=== PATIENT | male | born 1950 | race Caucasian/White ===

== ENCOUNTER → 2018-02-10 | Outpatient (CLI) | payer MEDICARE | END | disposition home or self-care (01) | LOC: LABPAT 08:08 | PROVIDERS: ATTEND Orthopaedic Surgery | DX: Z53.9 Procedure and treatment not carried out, unspecified reason (principal) ==

== ENCOUNTER 2018-02-18 06:14 | Inpatient (IN) | payer MEDICARE ==
[2018-02-13 12:19] VITALS: BMI 41.0
[~2018-02-18 06:14] MED LIST: DEXAMETHASONE SOD PHOSPHATE 10 MG/ML 1 ML VIAL IV ONE; LACTATED RINGERS 1,000 ML IV SCH; LIDOCAINE 1% 20 ML VIAL (10MG/ML) FOR IV START INTRADERMA PRN; ONDANSETRON 4 MG/2 ML VIAL IVP ONE; SCOPOLAMINE 1.5MG/72HR PATCH TRANSDERM ONE
[2018-02-18] MEDS ORDERED: LIDOCAINE 1% 20 ML VIAL (10MG/ML) FOR IV START INTRADERMA ONE (07:23)
[2018-02-18] MEDS ORDERED: LACTATED RINGERS 1,000 ML IV ONE (07:24)
[2018-02-18] MEDS ORDERED: MIDAZOLAM 2 MG/2 ML VIAL ONE (08:04)
[2018-02-18] MEDS ORDERED: PROPOFOL 10 MG/ML 20 ML VIAL IV ONE (08:04)
[2018-02-18] MEDS ORDERED: GLYCOPYRROLATE 0.2 MG/ML 2 ML VIAL ONE (08:04)
[2018-02-18] MEDS ORDERED: MORPHINE SULFATE 10 MG/ML SYRINGE ONE (08:04)
[2018-02-18] MEDS ORDERED: LIDOCAINE 1% INJ 10MG/ML (20 ML MDV) ONE (08:04)
[2018-02-18] MEDS ORDERED: hydrOXYzine PAMOATE 25 MG CAP PO PRN (08:58)
[2018-02-18] MEDS ORDERED: MORPHINE SULFATE/PF 10MG/10ML VL IVP PRN ×2 (08:58)
[2018-02-18] MEDS ORDERED: HYDROcodone/APAP 5-325MG 1 EACH TAB PO PRN (08:58)
[2018-02-18] MEDS ORDERED: TEMAZEPAM 15 MG CAP PO PRN (08:58)
[2018-02-18] MEDS ORDERED: ONDANSETRON 4 MG/2 ML VIAL IVP PRN (08:58)
[2018-02-18] MEDS ORDERED: SENNOSIDES-DOCUSATE SODIUM 1 EACH TAB PO PRN (08:58)
[2018-02-18] MEDS: fentaNYL (PF) 50 MCG/ML 2 ML AMP IVP ONE ×4 (08:59→09:20)
[2018-02-18] MEDS: MIDAZOLAM 2 MG/2 ML VIAL IV PRN ×2 (09:22→09:28)
--- NOTE | 2018-02-18 09:27 | HP ---
HISTORY AND PHYSICAL Darrel Devlin presented at surgery perioperative in a.m. in preparation for right rotator cuff repair. Today he presents with a bright red swollen left foot following stepping on a tooth pick last night. He has evidence of early cellulitis into the foot and ankle associated with a cyst, associated with last nights puncture wound. The area is visualized and it is a small puncture area. I canceled the procedure for the shoulder with this ongoing early infection. Plan to take him directly to the operating room and do an incision and drainage of his left foot with culture and sensitivity. He is aware of possibility multiple pieces wood remaining and will look for at the time of surgery. He is aware of risks, complications, post care.. He is admitted for inpatient IV antibiotic therapy and incision and drainage in the operating room as noted. JOSHL / NATN: [id number] / SANTIAGO
[2018-02-18] MEDS ORDERED: SODIUM CHLORIDE 0.9% 1,000 ML IV ONE (09:31)
[2018-02-18] MEDS: MORPHINE SULFATE 2 MG/ML SYRINGE IV PRN ×5 (09:44→12:55)
--- NOTE | 2018-02-18 11:31 | FL ---
Fluoroscopy HISTORY: Foreign body 10 seconds fluoroscopy time supplied to the referring clinician. 1 intraoperative C-arm images docum ent the procedure. See dictated report from orthopedic surgery.
--- NOTE | 2018-02-18 11:37 | XR ---
Limited left foot HISTORY: Foreign body Intraoperative C-arm image documents the procedure
[2018-02-18] MEDS: MORPHINE SULFATE/PF 10MG/10ML VL IVP PRN ×2 (15:16→21:22)
[2018-02-18] MEDS: LACTATED RINGERS 1,000 ML IV SCH ×2 (16:47→20:39)
[2018-02-18] MEDS: LISINOPRIL 20 MG TAB PO SCH (21:17)
[2018-02-18] MEDS: ATORVASTATIN 20 MG TAB PO SCH (21:17)
[2018-02-19] MEDS: HYDROcodone/APAP 5-325MG 1 EACH TAB PO PRN ×2 (05:16→13:47)
[2018-02-19] MEDS: LACTATED RINGERS 1,000 ML IV SCH ×2 (06:10→16:03)
--- NOTE | 2018-02-19 06:14 | CONS ---
CONSULTATION DATE OF CONSULTATION: 02/18/2018 REASON FOR CONSULTATION: Medical management requested by Dr. Lea. CONSULTATION: This is a very pleasant 68-year-old patient of Dr. Allen. The patient was scheduled for a right rotator cuff surgery this morning, but last night the patient stepped on a toothpick and by this morning patient's foot was swollen, tender, very painful. Actually patient was taken to the OR by Dr. Lea. I did not have any operative report. The patient's foot presented swelling. The patient's right shoulder surgery was postponed. The patient denies any cardiac history. Otherwise, chronic stable medical conditions include hypertension, hyperlipidemia, and arthritis in other joints. REVIEW OF SYSTEMS: CONSTITUTIONAL: None. HEENT: None. RESPIRATORY: None. CARDIOVASCULAR: None. GASTROINTESTINAL: None. GENITOURINARY: None. MUSCULOSKELETAL: As above. DERMATOLOGICAL: None. HEMATOLOGIC: None. LYMPHATIC: None. PSYCHIATRY: None. NEUROLOGICAL: None. MUSCULOSKELETAL: As above. PAST MEDICAL HISTORY: Right rotator cuff injury, hypertension, hyperlipidemia, obesity. PAST SURGICAL HISTORY: Left knee scope, left knee Reaves cyst repair. SOCIAL HISTORY: Does not smoke or drink alcohol. . The patient used to do delivery. FAMILY HISTORY: Family history of cancer, type unknown. HOME MEDICATIONS: 1. Vitamin D3, 2000 units p.o. q.h.s. 2. Naproxen 440 mg q.h.s. 3. Prinivil 20 mg q.h.s. 4. Lipitor 20 mg q.h.s. ALLERGIES: None. PHYSICAL EXAMINATION: On examination, temperature 98.4 pulse 87, respiration 16, blood pressure 144/71, pulse ox 95% on room air. GENERAL APPEARANCE: Well built, BMI 41.1. Lying in bed, awake. EYES: Pupils equal. Conjunctivae normal. HENT: External appearance of the nose and ears normal. Oral cavity normal. NECK; JVD not raised. Mass not palpable. RESPIRATORY: Effort . Lungs are clear. CARDIOVASCULAR: First and second sounds normal. No edema. ABDOMEN: Soft, nontender. Liver and spleen not palpable. LYMPHATIC: No lymph nodes palpable in the neck or axillae. PSYCHIATRY: Alert and oriented x3. Mood and affect normal. NEUROLOGICAL: Pupils equal. Cranial nerves grossly intact. Power and sensation grossly intact. MUSCULOSKELETAL: Limited range of motion right shoulder. Left foot in a dressing. INVESTIGATIONS: C-reactive protein 15.2. ASSESSMENT: 1. Left foot injury with a toothpick with possible abscess, status post I and D. 2. Right rotator cuff injury, awaiting surgery. 3. Essential hypertension. 4. Hyperlipidemia. 5. Morbid obesity, body mass index 41.1. PLAN: Home medications are resumed. Patient is started on IV cefazolin. Will add Lovenox for DVT prophylaxis. Pain control is in place. Care was discussed with the patient and at the bedside. Questions were answered. Thank you Dr. Lea. MMODL / NATN: [id number] /
[2018-02-19] MEDS: ENOXAPARIN 40 MG/0.4 ML SYRINGE SQ SCH (08:09)
--- NOTE | 2018-02-19 08:34 | P.PN ---
Subjective Progress Note Date: 02/19/18 Principal diagnosis: Foreign body left foot. Status post I&D left foot. This is a 68-year-old male who is status post I&D of the left foot. The patient had stepped on a toothpick the evening before he was scheduled for shoulder surgery. When he arrived at the hospital his shoulder surgery was canceled and he was admitted on for an incision and drainage with evaluation for foreign body of the left foot. The patient continues to have pain to the left foot. No fever or chills. Neurovascular status to the lower extremity is intact. Objective - Vital Signs Vital signs: Vital Signs Temp 97.9 F 02/19/18 06:10 Pulse 69 02/19/18 06:10 Resp 18 02/19/18 06:10 BP 136/66 02/19/18 06:10 Pulse Ox 92 L 02/19/18 06:10 Intake & Output 02/18/18 02/19/18 02/19/18 18:59 06:59 18:59 Intake Total 1750 Output Total 6 Balance 1744 Intake: IV 1750 Output: Estimated Blood Loss 6 Other: Voiding Method Toilet Toilet Urinal Urinal # Voids 3 - Exam This is a pleasant 68-year-old male in no acute distress. He is alert and oriented 3. Exam of the left foot reveals that he continues to have erythema with some mild streaking up into the lower leg. There is mild to moderate sanguinous drainage on the dressing. The packing is pulled and repacked today. The patient has significant tenderness with even light touch to the area. He has full toe motion without difficulty or pain. Neurovascular status to the lower extremity is intact. - Labs Labs: Abnormal Lab Results - Last 24 Hours (Table) 02/18/18 Range/Units 15:18 C-Reactive Protein 15.2 H (<10.0) mg/L Microbiology - Last 24 Hours (Table) 02/18/18 08:46 Gram Stain - Preliminary Foot - Left Wound Culture - Preliminary 02/18/18 08:46 Anaerobic Culture - Preliminary Foot - Left Assessment and Plan (1) Status post incision and drainage Current Visit: Yes Status: Acute Code(s): Z98.890 - OTHER SPECIFIED POSTPROCEDURAL STATES SNOMED Code(s): 850480533 (2) Foreign body in left foot Current Visit: Yes Status: Acute Code(s): S90.852A - SUPERFICIAL FOREIGN BODY, LEFT FOOT, INITIAL ENCOUNTER SNOMED Code(s): 934071837 Plan: The clinical findings are discussed the patient. The wound is repacked today gently. Clean dressing applied. He is to continue with IV antibiotics as directed. We will continue to follow with daily dressing changes and packing.
[2018-02-19 09:07] LABS: Basophils # (A) 0.1 k/uL (0-0.2); Basophils % (A) 1 %; Eosinophils # (A) 0.1 k/uL (0-0.7); Eosinophils % (A) 2 %; HCT 37.7 % (39.0-53.0); HGB 13.5 gm/dL (13.0-17.5); Lymphocytes # (A) 1.8 k/uL (1.0-4.8); Lymphocytes % (A) 22 %; MCH 31.3 pg (25.0-35.0); MCHC 35.7 g/dL (31.0-37.0); MCV 87.7 fL (80.0-100.0); Mean Platelet Volume 7.6; Monocytes # (A) 0.6 k/uL (0-1.0); Monocytes % (A) 7 %; Neutrophils # (A) 5.3 k/uL (1.3-7.7); Neutrophils % (A) 67 %; Platelet Count 193 k/uL (150-450); RDW 12.8 % (11.5-15.5)
[2018-02-19] MEDS ORDERED: HYDROmorphone 2 MG TAB PO PRN ×3 (15:19→15:20)
--- NOTE | 2018-02-19 18:38 | PN ---
PROGRESS NOTE DATE OF SERVICE: 02/19/2018 PRESENTING COMPLAINT: Left foot infection. INTERVAL HISTORY: The patient is status post I&D of his left foot infection secondary to a toothpick. Pain is better. Tolerating a diet. No nausea or vomiting. REVIEW OF SYSTEMS: Done for constitutional, cardiovascular, GI, pulmonary; relevant findings as above. CURRENT MEDICATIONS: These include IV Ancef. PHYSICAL EXAMINATION: Temperature 97.9, pulse 69, respiration 18, blood pressure 136/66, pulse ox 92% on room air. GENERAL APPEARANCE: Lying in bed, comfortable. EYES: Pupils equal. Conjunctivae normal. HEENT: External appearance of nose and ears normal. Oral cavity normal. NECK: JVD not raised. Mass not palpable. RESPIRATORY: Effort normal. Lungs are clear. CARDIOVASCULAR: First and second sounds normal. No edema. ABDOMEN: Soft, nontender. Liver and spleen not palpable. MUSCULOSKELETAL: Dressing over the left foot. INVESTIGATIONS: Cultures are pending. White count 8.0. ASSESSMENT: 1. Left foot injury with toothpick, possible abscess, status post incision and drainage, with a normal white count, afebrile. 2. Right rotator cuff injury; awaiting surgery. 3. Essential hypertension. 4. Hyperlipidemia. 5. Morbid obesity; body mass index of 41.1. PLAN: Continue with IV cefazolin. I spoke to Dr. Lea. Clinically the patient looks good. Also spoke with the patient and his . Thank you, Dr. Lea. MMASIF / SAMMI: [id number] /
[2018-02-19] MEDS: LISINOPRIL 20 MG TAB PO SCH (21:48)
[2018-02-19] MEDS: ATORVASTATIN 20 MG TAB PO SCH (21:48)
--- NOTE | 2018-02-20 00:04 | P.CONS ---
History of Present Illness - Reason for Consult Consult date: 02/19/18 - Chief Complaint Abscess left foot - History of Present Illness Todd 68-year-old male is a history of a significant right shoulder injury with rotator cuff tear. Is having increasing symptoms and consequently was to have a rotator cuff repair. The patient relates that he had taken a shower getting ready for surgery. Change his sheets to his bed and stepped on a toothpick apparently he utilizes toothpicks quite a bit. There was an inadvertent injury from a toothpick that have been left on the floor. The patient's relates that she always wears slippers but the patient does not. Exactly that he was immediately aware of that he had stepped onto the toothpick. The time he presented he had significant abscess on the plantar surface of his left foot. Patient underwent surgical incision and drainage by orthopedics. Shoulder surgery is now delayed. Because of the abscess the infectious diseases consultation has been requested. This pleasant gentleman relates that he is not having this difficulty in the past. He is denying further fevers or chills and the severe pain to his foot is improved. Review of Systems HEENT:Denies headache or acute visual change. Denies sinus or mouth discomforts. Denies neck stiffness or pain. Denies significant oral cavity pain. Denies difficulty on swallowing. Lungs: Denies significant shortness of breath, cough, sputum production, or hemoptysis. Cardiovascular: Denies significant shortness of breath, chest pain, chest wall pain, orthopnea, dyspnea on exertion, syncope Gastrointestinal:Denies nausea, vomiting, diarrhea, constipation, hematemesis, melena, hematochezia. No no significant change of bowel habit noticed. Musculoskeletal: Chronic pain to the left shoulder. No new joint swelling. Denies new back pain. Skin: Abscess of the left foot is noted Neuro: Denies headache or visual change. Denies any new onset weakness or difficulty with ambulation. Denies falls or seizures. Psychiatric:Denies anxiety or depression. Endocrine: Denies significant fatigue, denies significant weight loss or weight gain. Past Medical History Past Medical History: Hyperlipidemia, Hypertension, Musculoskeletal Disorder Additional Past Medical History / Comment(s): RT ROTATOR CUFF TEAR. History of Any Multi-Drug Resistant Organisms: None Reported Additional Past Surgical History / Comment(s): LT KNEE SCOPE; LT KNEE CARDOSO CYST EXC. Past Anesthesia/Blood Transfusion Reactions: No Reported Reaction Past Psychological History: No Psychological Hx Reported Additional Psychological History / Comment(s): and lives with his and family home. 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 No international travel since. No animal exposures. Denies any alcohol use or recreational drug use. No tobacco use Smoking Status: Never smoker Past Alcohol Use History: None Reported Past Drug Use History: None Reported - Past Family History Father Family Medical History: Cancer Mother Family Medical History: Cancer Medications and Allergies Home Medications and Allergies Comment(s): Current Medications Hydrocodone Bitart/Acetaminophen ([place] 5-325) 1 each PO Q4HR PRN PRN Reason: Pain Scale 1 to 5 Last Admin: 02/19/18 08:55 Dose: 1 each Hydrocodone Bitart/Acetaminophen ([place] 5-325) 2 each PO Q6HR PRN PRN Reason: Pain Scale 6 to 10 Last Admin: 02/19/18 13:47 Dose: 2 each Atorvastatin Calcium (Lipitor) 20 mg PO HS [facility] Last Admin: 02/19/18 21:48 Dose: 20 mg Enoxaparin Sodium (Lovenox) 40 mg SQ DAILY [facility] Last Admin: 02/19/18 08:09 Dose: 40 mg Hydromorphone HCl (Dilaudid) 0.5 mg PO Q3HR PRN PRN Reason: Pain Scale 1 to 3 Hydromorphone HCl (Dilaudid) 1 mg PO Q3HR PRN PRN Reason: Pain Scale 4 to 6 Hydromorphone HCl (Dilaudid) 2 mg PO Q3HR PRN PRN Reason: Pain Scale 7 to 10 Hydroxyzine Pamoate (Vistaril) 25 mg PO Q6HR PRN PRN Reason: Nausea/Anxiety Lactated Ringer's (Lactated Ringers) 1,000 mls @ 100 mls/hr IV .Q10H [facility] Last Admin: 02/19/18 16:03 Dose: Not Given Ampicillin Sodium/Sulbactam (Sodium 3 gm/ Sodium Chloride) 100 mls @ 100 mls/ hr IVPB Q6HR [facility] Lidocaine HCl (.Xylocaine 1% Inj (10mg/Ml) For Iv Start) 0.1 ml INTRADERMA PER PROTOCOL PRN PRN Reason: IV Start Lisinopril (Zestril) 20 mg PO HS [facility] Last Admin: 02/19/18 21:48 Dose: 20 mg Ondansetron HCl (Zofran) 4 mg IVP DAILY PRN PRN Reason: Nausea And Vomiting Senna/Docusate Sodium (Senokot-S) 2 each PO HS PRN PRN Reason: Constipation Temazepam (Restoril) 15 mg PO HS PRN PRN Reason: Insomnia Last Admin: 02/19/18 21:48 Dose: 15 mg Home Medications Medication Instructions Recorded Confirmed Type Atorvastatin [Lipitor] 20 mg PO HS 02/13/18 02/19/18 History Cholecalciferol (Vitamin D3) 2,000 unit PO HS 02/13/18 02/19/18 History [Vitamin D3] Lisinopril [Prinivil] 20 mg PO HS 02/13/18 02/19/18 History Naproxen Sodium [Aleve] 440 mg PO HS 02/13/18 02/19/18 History Allergies Allergy/AdvReac Type Severity Reaction Status Date / Time No Known Allergies Allergy Verified 02/19/18 19:37 Physical Exam Vitals: Vital Signs Temp Pulse Pulse Resp BP Pulse Ox 02/19/18 23:00 97.2 F L 60 18 125/67 93 L 02/19/18 15:00 97.8 F 84 16 136/74 97 02/19/18 08:00 18 02/19/18 06:10 97.9 F 69 18 136/66 92 L Intake and Output 02/19/18 02/19/18 02/20/18 14:59 22:59 06:59 Other: # Voids 2 HEENT: Anicteric conjunctiva are pink and moist nasal mucosa grossly intact without significant lesions, there is no thrush. Neck: The neck is supple without significant lymphadenopathy or thyromegaly. Lungs: Good bilateral air entry without significant crackles or wheezing. There is no significant bronchial sounds. There is no egophony or dullness. Heart: Regular rate and rhythm with an audible S1-S2, no S3 no S4. There is no significant murmur click or rub, PMI was nondisplaced. Abdomen: Positive bowel sounds soft and nontender without palpable masses or organomegaly. There was no guarding or rebound. Extremities: The upper extremities have excellent pulses they are symmetric, no significant petechiae or telangiectasia. No splinter hemorrhages were noted. The left lower extremity reveals evidence of significant swelling erythema and tenderness of the plantar surface where the incision and drainages occurred. Packing is removed and Aquacel dressing is replaced. Right foot without acute difficulties. It is not right shoulder has very poor range of motion with tenderness Neuro: Awake alert oriented to person place and time. There are no acute new gross focal sensory motor deficits. Results CBC & Chem 7: 02/19/18 08:46 Labs: Abnormal Lab Results - Last 24 Hours (Table) 02/19/18 Range/Units 08:46 Hct 37.7 L (39.0-53.0) % Laboratory Results WBC 8.0 k/uL (3.8-10.6) 02/19/18 08:46 RBC 4.30 m/uL (4.30-5.90) 02/19/18 08:46 Hgb 13.5 gm/dL (13.0-17.5) 02/19/18 08:46 Hct 37.7 % (39.0-53.0) L 02/19/18 08:46 MCV 87.7 fL (80.0-100.0) 02/19/18 08:46 MCH 31.3 pg (25.0-35.0) 02/19/18 08:46 MCHC 35.7 g/dL (31.0-37.0) 02/19/18 08:46 RDW 12.8 % (11.5-15.5) 02/19/18 08:46 Plt Count 193 k/uL (150-450) 02/19/18 08:46 Neutrophils % 67 % 02/19/18 08:46 Lymphocytes % 22 % 02/19/18 08:46 Monocytes % 7 % 02/19/18 08:46 Eosinophils % 2 % 02/19/18 08:46 Basophils % 1 % 02/19/18 08:46 Neutrophils # 5.3 k/uL (1.3-7.7) 02/19/18 08:46 Lymphocytes # 1.8 k/uL (1.0-4.8) 02/19/18 08:46 Monocytes # 0.6 k/uL (0-1.0) 02/19/18 08:46 Eosinophils # 0.1 k/uL (0-0.7) 02/19/18 08:46 Basophils # 0.1 k/uL (0-0.2) 02/19/18 08:46 ESR 13 mm/hr (0-15) 02/18/18 15:18 C-Reactive Protein 15.2 mg/L (<10.0) H 02/18/18 15:18 Microbiology 02/18/18 08:46 Foot - Left Gram Stain - Preliminary 02/18/18 08:46 Foot - Left Wound Culture - Preliminary 02/18/18 08:46 Foot - Left Anaerobic Culture - Preliminary Assessment and Plan (1) Foreign body in left foot Current Visit: Yes Status: Acute Code(s): S90.852A - SUPERFICIAL FOREIGN BODY, LEFT FOOT, INITIAL ENCOUNTER SNOMED Code(s): 816106174 (2) Foot abscess, left Narrative/Plan: Pleasant 68-year-old male who has a history of degenerative joint disease in significant injury to his right shoulder was to have right rotator cuff repair surgery. However the patient stepped on a toothpick in his without significant abscess to the plantar surface of the left foot. Status post incision and drainage. Cultures are pending. Antibiotic therapy is altered to ampicillin sulbactam since the toothpick was used intermittently been in the mouth. This changes the potential bacteria to oral fluoroscopy as well as staph and strep. Await cultures to help determine her overall course. There is of course concerning given the foreign body of the possibility of an underlying osteomyelitis. Bone scan is requested. This will help determine overall course of therapy at the time of his discharge. Local wound care as changed Aquacel silver and it was packed into the wound with some discomfort but did tolerate well He is up-to-date on his tetanus vaccine from last year. We'll except a multivitamin. Protein supplement also. Current Visit: Yes Status: Acute Code(s): L02.612 - CUTANEOUS ABSCESS OF LEFT FOOT SNOMED Code(s): 679915648 (3) Obesity Current Visit: Yes Status: Acute Code(s): E66.9 - OBESITY, UNSPECIFIED SNOMED Code(s): 086693726
[2018-02-20] MEDS: AMPICILLIN-SULBACTAM 3 GM in SODIUM CHLORIDE 0.9% 100 ML IVPB SCH ×4 (00:55→18:04)
[2018-02-20] MEDS: LACTATED RINGERS 1,000 ML IV SCH ×3 (02:09→22:16)
[2018-02-20] MEDS: HYDROcodone/APAP 5-325MG 1 EACH TAB PO PRN ×3 (02:31→17:07)
[2018-02-20] MEDS: ENOXAPARIN 40 MG/0.4 ML SYRINGE SQ SCH (07:51)
--- NOTE | 2018-02-20 08:36 | P.PN ---
Subjective Progress Note Date: 02/20/18 Principal diagnosis: Left foot infection s/p foreign body removal This is a 68 year-old male post left foot I&D. This is post-op day 2. The patient was evaluated at the bedside today. The patient denies nausea, vomiting , abdominal pain, shortness of breath, and chest pain this morning. He states his pain is controlled at this time. The patient has been seen by Dr. Shukla, IV antibiotics were changed and a bone scan was ordered. The dressing was also changed to Aquacel. Cultures are still pending. This morning he denies fever, chills, and rigors. He states his great toe is very painful still. Objective - Vital Signs Vital signs: Vital Signs Temp 96.6 F L 02/20/18 07:00 Pulse 57 L 02/20/18 07:00 Resp 18 02/20/18 07:00 BP 114/71 02/20/18 07:00 Pulse Ox 96 02/20/18 07:00 Intake & Output 02/19/18 02/20/18 02/20/18 18:59 06:59 18:59 Other: Voiding Method Toilet Urinal # Voids 2 2 - Exam The patient does not appear in acute distress. Alert and orientated x3. Dressing is clean dry and intact. Calf is soft and nontender. Good ankle motion without difficulty. There is limited flexion of the great toe but full extension is present. Sensation and circulatory status is intact. - Labs CBC & Chem 7: 02/19/18 08:46 Labs: Abnormal Lab Results - Last 24 Hours (Table) 02/19/18 Range/Units 08:46 Hct 37.7 L (39.0-53.0) % Assessment and Plan (1) Foot abscess, left Current Visit: Yes Status: Acute Code(s): L02.612 - CUTANEOUS ABSCESS OF LEFT FOOT SNOMED Code(s): 485158298 (2) Foreign body in left foot Current Visit: Yes Status: Acute Code(s): S90.852A - SUPERFICIAL FOREIGN BODY, LEFT FOOT, INITIAL ENCOUNTER SNOMED Code(s): 907449953 (3) Status post incision and drainage Current Visit: Yes Status: Acute Code(s): Z98.890 - OTHER SPECIFIED POSTPROCEDURAL STATES SNOMED Code(s): 515610512 Plan: 1. Continue pain control 2. Continue to follow closely with infectious disease 3. Continue non-weightbearing to the left foot 4. Obtain premium equalizer boot today 5. Dressing changes per Dr. Shukla 6. Anticipate discharge home tomorrow pending culture and bone scan results
[2018-02-20 09:39] LABS: Basophils # (A) 0.1 k/uL (0-0.2); Basophils % (A) 1 %; Eosinophils # (A) 0.3 k/uL (0-0.7); Eosinophils % (A) 4 %; HGB 13.5 gm/dL (13.0-17.5); Lymphocytes # (A) 1.4 k/uL (1.0-4.8); Lymphocytes % (A) 23 %; MCH 30.8 pg (25.0-35.0); MCHC 34.8 g/dL (31.0-37.0); MCV 88.6 fL (80.0-100.0); Mean Platelet Volume 7.5; Monocytes # (A) 0.5 k/uL (0-1.0); Monocytes % (A) 8 %; Neutrophils # (A) 3.6 k/uL (1.3-7.7); Neutrophils % (A) 62 %; Platelet Count 185 k/uL (150-450); RBC 4.39 m/uL (4.30-5.90); RDW 12.8 % (11.5-15.5); WBC 5.9 k/uL (3.8-10.6)
--- NOTE | 2018-02-20 10:27 | OP ---
OPERATIVE REPORT DATE OF SERVICE: 02/19/2018. SURGEON: Jose Lea DO SIGHT EFFECTS SPECIALIST: JOE Young. PREOPERATIVE DIAGNOSIS: Puncture wound and infection of the left foot, possible hallucis longus tendon violation. POSTOPERATIVE DIAGNOSIS: Puncture wound and infection of the left foot, possible hallucis longus tendon violation. PROCEDURE PERFORMED: Incision and drainage of an early abscess of the left great toe, metatarsal phalangeal with probable puncture wound of the flexor hallucis longus tendon sheath. PROCEDURE: Patient is taken to the Operative Suite and placed in supine position. General anesthesia from the Department of Anesthesiology. A Betadine prep was carried out over the leg. Sterile drapes applied in the usual manner. A longitudinal incision was carried out over the puncture wound to the level of the segment of the left big toe. Blunt dissection through the subcutaneous tissue was performed. There was devitalized fat in the puncture wound. Review inspection of the flexor hallucis longus and the patient is released. Cultures were obtained in the interim. No evidence of purulence at this time. X-ray revealed no evidence of retained foreign body in the puncture area. The area was copiously irrigated with antibiotic solution and 1/4" packing. The wound was closed with 2-0 Vicryl sutures. Sterile dressing was applied. Patient transferred to the recovery room in satisfactory postop condition. GROSS PATHOLOGY: There was early cellulitis and tenosynovitis of the left great toe at the sesamoid. A puncture wound of a toothpick from the previous night. X rays ordered for foreign body. Patient had acute cellulitis and tenosynovitis. No foreign body recovered at surgery. MMODL / IJN: [id number] / [facility]ENTERWeston
--- NOTE | 2018-02-20 11:54 | NM ---
EXAMINATION TYPE: NM bone 3 phase DATE OF EXAM: 02/20/2018 COMPARISON: NONE HISTORY: Left foot osteomyelitis per order. History of penetrating injury with foreign body 4 days ag o that had surgical removal 2 days ago Triple phase bone scintigraphy was performed following the injection of24.9 mCi Tc 99m MDP. Immediat e images and 4 hours post injection images acquired. FINDINGS: Dynamic arterial and soft tissue phase images show increased uptake diffusely to the left ankle and f oot versus opposite right side with more prominent radiotracer uptake in the medial forefoot. Delayed phase images show persistent smaller focus of increased uptake at this level centered near fi rst metatarsophalangeal joint. Thus acute osteomyelitis at this level cannot be excluded. IMPRESSION: Significant right-sided soft tissue infection with suspicion for focal osteomyelitis medial aspect fi rst toe in the region of the base of first proximal phalanx.. Correlate clinically and and consider c orrelation with radiographs.
[2018-02-20] MEDS: MULTIVITAMINS, THERA 1 EACH TAB PO SCH (12:45)
[2018-02-20] MEDS: ATORVASTATIN 20 MG TAB PO SCH (20:40)
[2018-02-20] MEDS: LISINOPRIL 20 MG TAB PO SCH (20:41)
--- NOTE | 2018-02-20 21:08 | P.PN ---
Subjective Progress Note Date: 02/20/18 Principal diagnosis: foot infection Pleasant 68-year-old male is a history of a significant right shoulder injury with rotator cuff tear. Is having increasing symptoms and consequently was to have a rotator cuff repair. The patient relates that he had taken a shower getting ready for surgery. Change his sheets to his bed and stepped on a toothpick apparently he utilizes toothpicks quite a bit. There was an inadvertent injury from a toothpick that have been left on the floor. The patient's relates that she always wears slippers but the patient does not. Exactly that he was immediately aware of that he had stepped onto the toothpick. The time he presented he had significant abscess on the plantar surface of his left foot. Patient underwent surgical incision and drainage by orthopedics. Shoulder surgery is now delayed. Because of the abscess the infectious diseases consultation has been requested. This pleasant gentleman relates that he is not having this difficulty in the past. He is denying further fevers or chills and the severe pain to his foot is improved. 02/20/2018 the patient has had some improvement. Pain is improved today. Dressing changes much improved with the change to the Aquacel silver had much less pain with change. Denies fevers or chills. Workup in process for evaluation of osteomyelitis. Objective - Vital Signs Vital signs: Vital Signs Temp 97.5 F L 02/20/18 14:57 Pulse 60 02/20/18 20:39 Resp 16 02/20/18 20:39 BP 136/70 02/20/18 20:39 Pulse Ox 94 L 02/20/18 14:57 Intake & Output 02/20/18 02/20/18 02/21/18 06:59 18:59 06:59 Intake Total 240 Balance 240 Intake: Oral 240 Other: Voiding Method Toilet Toilet Toilet Urinal # Voids 2 3 - Exam HEENT: Anicteric conjunctiva are pink and moist nasal mucosa grossly intact without significant lesions, there is no thrush. Neck: The neck is supple without significant lymphadenopathy or thyromegaly. Lungs: Good bilateral air entry without significant crackles or wheezing. There is no significant bronchial sounds. There is no egophony or dullness. Heart: Regular rate and rhythm with an audible S1-S2, no S3 no S4. There is no significant murmur click or rub, PMI was nondisplaced. Abdomen: Positive bowel sounds soft and nontender without palpable masses or organomegaly. There was no guarding or rebound. Extremities: The upper extremities have excellent pulses they are symmetric, no significant petechiae or telangiectasia. No splinter hemorrhages were noted. The left lower extremity reveals evidence of significant swelling erythema and tenderness of the plantar surface where the incision and drainages occurred. Packing is removed and Aquacel dressing is replaced. Right foot without acute difficulties. the right shoulder has very poor range of motion with tenderness Neuro: Awake alert oriented to person place and time. There are no acute new gross focal sensory motor deficits. - Labs CBC & Chem 7: 02/20/18 09:05 Labs: Microbiology - Last 24 Hours (Table) 02/18/18 08:46 Gram Stain - Final Foot - Left Wound Culture - Final 02/18/18 08:46 Anaerobic Culture - Preliminary Foot - Left Laboratory Results WBC 5.9 k/uL (3.8-10.6) 02/20/18 09:05 RBC 4.39 m/uL (4.30-5.90) 02/20/18 09:05 Hgb 13.5 gm/dL (13.0-17.5) 02/20/18 09:05 Hct 39.0 % (39.0-53.0) 02/20/18 09:05 MCV 88.6 fL (80.0-100.0) 02/20/18 09:05 MCH 30.8 pg (25.0-35.0) 02/20/18 09:05 MCHC 34.8 g/dL (31.0-37.0) 02/20/18 09:05 RDW 12.8 % (11.5-15.5) 02/20/18 09:05 Plt Count 185 k/uL (150-450) 02/20/18 09:05 Neutrophils % 62 % 02/20/18 09:05 Lymphocytes % 23 % 02/20/18 09:05 Monocytes % 8 % 02/20/18 09:05 Eosinophils % 4 % 02/20/18 09:05 Basophils % 1 % 02/20/18 09:05 Neutrophils # 3.6 k/uL (1.3-7.7) 02/20/18 09:05 Lymphocytes # 1.4 k/uL (1.0-4.8) 02/20/18 09:05 Monocytes # 0.5 k/uL (0-1.0) 02/20/18 09:05 Eosinophils # 0.3 k/uL (0-0.7) 02/20/18 09:05 Basophils # 0.1 k/uL (0-0.2) 02/20/18 09:05 ESR 13 mm/hr (0-15) 02/18/18 15:18 C-Reactive Protein 15.2 mg/L (<10.0) H 02/18/18 15:18 Microbiology 02/18/18 08:46 Foot - Left Gram Stain - Final 02/18/18 08:46 Foot - Left Wound Culture - Final 02/18/18 08:46 Foot - Left Anaerobic Culture - Preliminary Assessment and Plan (1) Foreign body in left foot Current Visit: Yes Status: Acute Code(s): S90.852A - SUPERFICIAL FOREIGN BODY, LEFT FOOT, INITIAL ENCOUNTER SNOMED Code(s): 903546756 (2) Foot abscess, left Narrative/Plan: Pleasant 68-year-old male who has a history of degenerative joint disease in significant injury to his right shoulder was to have right rotator cuff repair surgery. However the patient stepped on a toothpick in his without significant abscess to the plantar surface of the left foot. Status post incision and drainage. Cultures are pending. Antibiotic therapy is altered to ampicillin sulbactam since the toothpick was used intermittently been in the mouth. This changes the potential bacteria to oral fluoroscopy as well as staph and strep. Await cultures to help determine her overall course. There is of course concerning given the foreign body of the possibility of an underlying osteomyelitis. Bone scan is requested. This will help determine overall course of therapy at the time of his discharge. Local wound care as changed Aquacel silver and it was packed into the wound with some discomfort but did tolerate well He is up-to-date on his tetanus vaccine from last year. We'll except a multivitamin. Protein supplement also. 02/20/2018 reveals the patient to be slightly improved today. Is doing somewhat better as far as pain from the incision and drainage.bone scan is in process I am concerned underlying osteomalacia is case. If he does have some mellitus we'll plan on PICC line to be placed and then initiation of outpatient intravenous antibiotic therapy if cultures are negative likely with Rocephin for daily infusion potentially at the outpatient clinic Current Visit: Yes Status: Acute Code(s): L02.612 - CUTANEOUS ABSCESS OF LEFT FOOT SNOMED Code(s): 063334481 (3) Obesity Current Visit: Yes Status: Acute Code(s): E66.9 - OBESITY, UNSPECIFIED SNOMED Code(s): 741300498
[2018-02-21] MEDS: NAPROXEN 250 MG TAB PO SCH ×3 (00:32→20:45)
[2018-02-21] MEDS: HYDROcodone/APAP 5-325MG 1 EACH TAB PO PRN (00:32)
[2018-02-21] MEDS: AMPICILLIN-SULBACTAM 3 GM in SODIUM CHLORIDE 0.9% 100 ML IVPB SCH ×4 (00:33→17:39)
[2018-02-21] MEDS: LACTATED RINGERS 1,000 ML IV SCH (06:10)
--- NOTE | 2018-02-21 07:22 | PN ---
PROGRESS NOTE DATE OF SERVICE: 02/20/2018 PRESENTING COMPLAINT: Left foot infection. INTERVAL HISTORY: Patient is status post I and D left foot secondary to toothpick infection. Bone scan done to rule out questionable about osteomyelitis. Overall pain is better. Tolerating a diet. No new issues. REVIEW OF SYSTEMS: Done for constitutional, cardiovascular, GI, pulmonary; relevant findings as above. CURRENT MEDICATIONS: Reviewed that include IV Unasyn. On examination, afebrile, pulse 61, respiratory rate 18, blood pressure 140/59, pulse ox 94% on room air. GENERAL APPEARANCE: Lying in bed, comfortable. EYES: Pupils equal, conjunctivae are normal. HEENT: External appearance of nose and ears normal, oral oral cavity normal. NECK: JVD not raised. Mass not palpable. Respiratory effort normal. Lungs are clear. CARDIOVASCULAR: First and second sounds are normal. ABDOMEN: Soft, nontender. Liver and spleen not palpable. PSYCHIATRY: Alert and oriented x3. Mood and affect normal. MUSCULOSKELETAL: Dressing over the left foot. INVESTIGATIONS: White count is normal. Bone scan showing soft tissue inflammation and questionable osteomyelitis. ASSESSMENT: 1. I question the diagnosis of osteomyelitis given the acuteness of the presentation, would make osteomyelitis less likely. Area that is lighting up could be purely from inflammation in that area as opposed to infection. Really not infection. I would like Dr. Shukla to decide about the same. This patient has remained afebrile with normal white count with a lot of local inflammation. 2. Right rotator cuff injury. Awaiting surgery. 3. Essential hypertension. 4. Hyperlipidemia. 5. Morbid obesity, body mass index of 41.1. PLAN: Continue with current antibiotic which patient is now on Unasyn, IV fluids. Will add the naproxen for anti-inflammatory affect. Await further input from Dr. Shukla. MMODL / IJN: [id number] /
[2018-02-21] MEDS: MULTIVITAMINS, THERA 1 EACH TAB PO SCH (08:06)
--- NOTE | 2018-02-21 09:13 | P.PN ---
Subjective Progress Note Date: 02/21/18 Principal diagnosis: Left foot infection s/p foreign body This is a 68 year-old male post left foot I&D. This is post-op day 3. The patient was evaluated at the bedside today. The patient denies nausea, vomiting , abdominal pain, shortness of breath, and chest pain this morning. He states his pain is controlled at this time. The patient has been seen by Dr. Shukla, IV antibiotics were changed and a bone scan was ordered. The bone scan revealed focal osteomyelitis and a PICC line was ordered for outpatient IV antibiotics. The dressing was also changed to Aquacel. Cultures reveal normal skin rubio. This morning he denies fever, chills, and rigors. He states he is able to move his great toe more today. His pain seems to be improving. . Objective - Vital Signs Vital signs: Vital Signs Temp 97.6 F 02/21/18 07:32 Pulse 55 L 02/21/18 07:32 Resp 18 02/21/18 07:32 BP 135/59 02/21/18 07:32 Pulse Ox 96 02/21/18 06:06 Intake & Output 02/20/18 02/21/18 02/21/18 18:59 06:59 18:59 Intake Total 240 240 Balance 240 240 Intake: Oral 240 240 Other: Voiding Method Toilet Toilet # Voids 3 1 - Exam The patient does not appear in acute distress. Alert and orientated x3. Dressing is clean dry and intact. Calf is soft and nontender. Good ankle motion without difficulty. There is increased flexion of the great toe today but full extension is present. Sensation and circulatory status is intact. - Labs CBC & Chem 7: 02/20/18 09:05 Labs: Microbiology - Last 24 Hours (Table) 02/18/18 08:46 Gram Stain - Final Foot - Left Wound Culture - Final 02/18/18 08:46 Anaerobic Culture - Preliminary Foot - Left Assessment and Plan (1) Foot abscess, left Current Visit: Yes Status: Acute Code(s): L02.612 - CUTANEOUS ABSCESS OF LEFT FOOT SNOMED Code(s): 817622264 (2) Foreign body in left foot Current Visit: Yes Status: Acute Code(s): S90.852A - SUPERFICIAL FOREIGN BODY, LEFT FOOT, INITIAL ENCOUNTER SNOMED Code(s): 782713512 (3) Status post incision and drainage Current Visit: Yes Status: Acute Code(s): Z98.890 - OTHER SPECIFIED POSTPROCEDURAL STATES SNOMED Code(s): 970849556 Plan: 1. Continue pain control 2. Continue to follow closely with infectious disease, PICC ordered for insertion today 3. May weightbear as tolerated with premium equalizer boot, heel weightbearing may be needed. Physical therapy will be ordered. 4. Dressing changes per Dr. Shukla 5. Anticipate discharge home once PICC line is placed and IV antibiotics are arranged.
[2018-02-21] MEDS ORDERED: LIDOCAINE 2% INJ 20 MG/ML SQ ONE (10:22)
[2018-02-21 11:45] LABS: Basophils # (A) 0.1 k/uL (0-0.2); Basophils % (A) 1 %; Eosinophils # (A) 0.3 k/uL (0-0.7); Eosinophils % (A) 5 %; HCT 39.7 % (39.0-53.0); HGB 13.7 gm/dL (13.0-17.5); Lymphocytes # (A) 1.4 k/uL (1.0-4.8); Lymphocytes % (A) 26 %; MCHC 34.5 g/dL (31.0-37.0); MCV 89.9 fL (80.0-100.0); Mean Platelet Volume 7.4; Monocytes # (A) 0.6 k/uL (0-1.0); Monocytes % (A) 10 %; Neutrophils % (A) 55 %; Platelet Count 203 k/uL (150-450); RBC 4.42 m/uL (4.30-5.90); RDW 12.6 % (11.5-15.5); WBC 5.5 k/uL (3.8-10.6)
[2018-02-21 12:12] LABS: Albumin 3.4 g/dL (3.5-5.0); Potassium 4.7 mmol/L (3.5-5.1); Total Bilirubin 0.4 mg/dL (0.2-1.3); Total Protein 6.6 g/dL (6.3-8.2)
[2018-02-21 13:21] LABS: Erythrocyte Sedimentation Rate 23 mm/hr (0-15)
--- NOTE | 2018-02-21 14:13 | IR ---
EXAMINATION TYPE: IR cvc insert >=5 years DATE OF EXAM: 02/21/2018 COMPARISON: NONE CLINICAL HISTORY: Infection Needs long-term intravenous access for antibiotics. PROCEDURE: After informed consent, the skin overlying the left basilic vein was localized with ultrasound and no beverly to be compressible and patent. An ultrasound image was obtained and submitted on the patient's c schulz. The overlying skin was prepped and draped and Lidocaine was used for local anesthesia. A skin rachael was made with a scalpel. Access was gained to the vein under ultrasound guidance with a 21 gau ge needle and a 0.018 inch wire was advanced. Access site was dilated with Peel-Away sheath and cath eter tailored to the appropriate length and advanced such that the distal tip is at the cavoatrial ju nction. Spot image was obtained verifying placement. Catheter was fixed to the skin and a sterile d ressing was placed following hemostasis. Catheter was aspirated and flushed with saline. Patient wa s discharged in stable condition without complication. Maximal barrier technique is utilized. Ultras ound image is documented on the chart. Ultrasound used with sterile technique. Fluoro time and fluoroscopic images submitted to document procedure: 38 intraoperative images, 0.6 mi nutes fluoroscopy time IMPRESSION: STATUS POST ULTRASOUND AND FLUOROSCOPIC GUIDED PICC LINE PLACEMENT, READY FOR USE. THIS PROCEDURE WAS PERFORMED BY THE UNDERSIGNED.
--- NOTE | 2018-02-21 18:46 | PN ---
PROGRESS NOTE DATE OF SERVICE: 02/21/2018 PRESENT COMPLAINT: Left foot infection. INTERVAL HISTORY: The patient is status post I and D of the left foot infection secondary to brick. The patient is being treated for osteomyelitis by Dr. Shukla. The pain is better. Tolerating a diet. The patient did get a PICC line. REVIEW OF SYSTEMS: Done for constitutional, cardiovascular, GI, pulmonary, relevant findings as above. CURRENT MEDICATIONS: Reviewed that include IV Unasyn. PHYSICAL EXAMINATION: Temperature 97.6, pulse 55, respiratory 18, blood pressure 135/59, pulse ox 92% on room air. General appearance: Lying in bed comfortable. Awake. Eyes pupils are equal. Conjunctivae normal. HEENT external appearance of nose and ears normal. Oral cavity normal. Neck JVD not raised. Mass not palpable. Respiratory effort lungs are clear. Cardiovascular 1st and 2nd sounds normal. No edema. ABDOMEN: Soft, nontender. Liver and spleen not palpable. Psychiatry alert and oriented times three. Mood and affect normal. Musculoskeletal: Dressing over the left foot. INVESTIGATIONS: White count 5.5, potassium 4.7. Wound culture did show normal rubio. ASSESSMENT: 1. Acute osteomyelitis at the base of the first proximal tarsal with area surrounding infection, status post I and D. 2. Right rotator cuff injury. Awaiting surgery. 3. Essential hypertension. 4. Hyperlipidemia. 5. Morbid obesity BMI 41.1. PLAN: Patient already has a PICC line. The patient will be getting IV ceftriaxone per Dr. Shukla. Discharge planning is in place. Care was discussed with the patient. MMODL / IJN: [id number] /
[2018-02-21] MEDS: ATORVASTATIN 20 MG TAB PO SCH (20:45)
[2018-02-21] MEDS: LISINOPRIL 20 MG TAB PO SCH (20:46)
[2018-02-21 22:00] VITALS: RESP 16
--- NOTE | 2018-02-21 22:52 | P.PN ---
Subjective Progress Note Date: 02/21/18 Principal diagnosis: foot infection Pleasant 68-year-old male is a history of a significant right shoulder injury with rotator cuff tear. Is having increasing symptoms and consequently was to have a rotator cuff repair. The patient relates that he had taken a shower getting ready for surgery. Change his sheets to his bed and stepped on a toothpick apparently he utilizes toothpicks quite a bit. There was an inadvertent injury from a toothpick that have been left on the floor. The patient's relates that she always wears slippers but the patient does not. Exactly that he was immediately aware of that he had stepped onto the toothpick. The time he presented he had significant abscess on the plantar surface of his left foot. Patient underwent surgical incision and drainage by orthopedics. Shoulder surgery is now delayed. Because of the abscess the infectious diseases consultation has been requested. This pleasant gentleman relates that he is not having this difficulty in the past. He is denying further fevers or chills and the severe pain to his foot is improved. 02/20/2018 the patient has had some improvement. Pain is improved today. Dressing changes much improved with the change to the Aquacel silver had much less pain with change. Denies fevers or chills. Workup in process for evaluation of osteomyelitis. 02/21/2018 the patient has had some further improvement. The bone scan however does feel evidence of osteomyelitis and consequently PICC line has been requested for outpatient intravenous antibiotic therapy, has been placed. Working with the brand planner for the outpatient antibiotic therapy. Will follow-up in the wound healing center regarding his wound care. Needs offloading any booties being provided. Objective - Vital Signs Vital signs: Vital Signs Temp 98.0 F 02/21/18 21:58 Pulse 60 02/21/18 21:58 Resp 16 02/21/18 21:58 BP 158/74 02/21/18 21:58 Pulse Ox 96 02/21/18 21:58 Intake & Output 02/21/18 02/21/18 02/22/18 06:59 18:59 06:59 Intake Total 240 100 Balance 240 100 Intake: IV 100 Ampicillin-Sulbactam 3 gm 100 In Sodium Chloride 0.9% 100 ml @ 100 mls/hr IVPB Q6HR [facility] Rx#:[id number] Oral 240 Other: Voiding Method Toilet Toilet # Voids 1 1 - Exam HEENT: Anicteric conjunctiva are pink and moist nasal mucosa grossly intact without significant lesions, there is no thrush. Neck: The neck is supple without significant lymphadenopathy or thyromegaly. Lungs: Good bilateral air entry without significant crackles or wheezing. There is no significant bronchial sounds. There is no egophony or dullness. Heart: Regular rate and rhythm with an audible S1-S2, no S3 no S4. There is no significant murmur click or rub, PMI was nondisplaced. Abdomen: Positive bowel sounds soft and nontender without palpable masses or organomegaly. There was no guarding or rebound. Extremities: The upper extremities have excellent pulses they are symmetric, no significant petechiae or telangiectasia. No splinter hemorrhages were noted. The left lower extremity reveals evidence of significant swelling erythema and tenderness of the plantar surface where the incision and drainages occurred. Packing is removed and Aquacel dressing is replaced. Right foot without acute difficulties. the right shoulder has very poor range of motion with tenderness Neuro: Awake alert oriented to person place and time. There are no acute new gross focal sensory motor deficits. - Labs CBC & Chem 7: 02/21/18 11:20 02/21/18 11:20 Labs: Abnormal Lab Results - Last 24 Hours (Table) 02/21/18 02/21/18 Range/Units 11:20 11:20 ESR 23 H (0-15) mm/hr BUN 24 H (9-20) mg/dL ALT 20 L (21-72) U/L Albumin 3.4 L (3.5-5.0) g/dL Laboratory Results WBC 5.5 k/uL (3.8-10.6) 02/21/18 11:20 RBC 4.42 m/uL (4.30-5.90) 02/21/18 11:20 Hgb 13.7 gm/dL (13.0-17.5) 02/21/18 11:20 Hct 39.7 % (39.0-53.0) 02/21/18 11:20 MCV 89.9 fL (80.0-100.0) 02/21/18 11:20 MCH 31.0 pg (25.0-35.0) 02/21/18 11:20 MCHC 34.5 g/dL (31.0-37.0) 02/21/18 11:20 RDW 12.6 % (11.5-15.5) 02/21/18 11:20 Plt Count 203 k/uL (150-450) 02/21/18 11:20 Neutrophils % 55 % 02/21/18 11:20 Lymphocytes % 26 % 02/21/18 11:20 Monocytes % 10 % 02/21/18 11:20 Eosinophils % 5 % 02/21/18 11:20 Basophils % 1 % 02/21/18 11:20 Neutrophils # 3.0 k/uL (1.3-7.7) 02/21/18 11:20 Lymphocytes # 1.4 k/uL (1.0-4.8) 02/21/18 11:20 Monocytes # 0.6 k/uL (0-1.0) 02/21/18 11:20 Eosinophils # 0.3 k/uL (0-0.7) 02/21/18 11:20 Basophils # 0.1 k/uL (0-0.2) 02/21/18 11:20 ESR 23 mm/hr (0-15) H 02/21/18 11:20 Sodium 142 mmol/L (137-145) 02/21/18 11:20 Potassium 4.7 mmol/L (3.5-5.1) 02/21/18 11:20 Chloride 105 mmol/L (98-107) 02/21/18 11:20 Carbon Dioxide 26 mmol/L (22-30) 02/21/18 11:20 Anion Gap 11 mmol/L 02/21/18 11:20 BUN 24 mg/dL (9-20) H 02/21/18 11:20 Creatinine 1.00 mg/dL (0.66-1.25) 02/21/18 11:20 Est GFR (CKD-EPI)AfAm 88 (>60 ml/min/1.73 sqM) 02/21/18 11:20 Est GFR (CKD-EPI)NonAf 77 (>60 ml/min/1.73 sqM) 02/21/18 11:20 Glucose 89 mg/dL (74-99) 02/21/18 11:20 Calcium 9.0 mg/dL (8.4-10.2) 02/21/18 11:20 Total Bilirubin 0.4 mg/dL (0.2-1.3) 02/21/18 11:20 AST 33 U/L (17-59) 02/21/18 11:20 ALT 20 U/L (21-72) L 02/21/18 11:20 Alkaline Phosphatase 62 U/L (38-126) 02/21/18 11:20 C-Reactive Protein 15.2 mg/L (<10.0) H 02/18/18 15:18 Total Protein 6.6 g/dL (6.3-8.2) 02/21/18 11:20 Albumin 3.4 g/dL (3.5-5.0) L 02/21/18 11:20 Microbiology 02/18/18 08:46 Foot - Left Gram Stain - Final 02/18/18 08:46 Foot - Left Wound Culture - Final 02/18/18 08:46 Foot - Left Anaerobic Culture - Preliminary Assessment and Plan (1) Foreign body in left foot Current Visit: Yes Status: Acute Code(s): S90.852A - SUPERFICIAL FOREIGN BODY, LEFT FOOT, INITIAL ENCOUNTER SNOMED Code(s): 091151795 (2) Foot abscess, left Narrative/Plan: Pleasant 68-year-old male who has a history of degenerative joint disease in significant injury to his right shoulder was to have right rotator cuff repair surgery. However the patient stepped on a toothpick in his without significant abscess to the plantar surface of the left foot. Status post incision and drainage. Cultures are pending. Antibiotic therapy is altered to ampicillin sulbactam since the toothpick was used intermittently been in the mouth. This changes the potential bacteria to oral fluoroscopy as well as staph and strep. Await cultures to help determine her overall course. There is of course concerning given the foreign body of the possibility of an underlying osteomyelitis. Bone scan is requested. This will help determine overall course of therapy at the time of his discharge. Local wound care as changed Aquacel silver and it was packed into the wound with some discomfort but did tolerate well He is up-to-date on his tetanus vaccine from last year. We'll except a multivitamin. Protein supplement also. 02/20/2018 reveals the patient to be slightly improved today. Is doing somewhat better as far as pain from the incision and drainage.bone scan is in process I am concerned underlying osteomyelitis. If he does have some mellitus we'll plan on PICC line to be placed and then initiation of outpatient intravenous antibiotic therapy if cultures are negative likely with Rocephin for daily infusion potentially at the outpatient clinic 02/21/2018 the patient is further improved. Pain is better controlled with the calcium alginate silver dressing. The bone scan is positive revealing evidence of the osteomyelitis and consequently outpatient intravenous antibiotics therapy is being recommended Rocephin 2 g a day is arranged and I believe he'll be getting that at the office on a daily basis. Discharge today if possible. Current Visit: Yes Status: Acute Code(s): L02.612 - CUTANEOUS ABSCESS OF LEFT FOOT SNOMED Code(s): 127167894 (3) Obesity Current Visit: Yes Status: Acute Code(s): E66.9 - OBESITY, UNSPECIFIED SNOMED Code(s): 735432544
[2018-02-22] MEDS: AMPICILLIN-SULBACTAM 3 GM in SODIUM CHLORIDE 0.9% 100 ML IVPB SCH ×3 (00:02→11:52)
[2018-02-22 07:07] VITALS: BP 152/85; PULSE 82; TEMP 97
[2018-02-22] MEDS: NAPROXEN 250 MG TAB PO SCH (07:29)
[2018-02-22 07:56] LABS: Basophils # (A) 0.1 k/uL (0-0.2); Basophils % (A) 1 %; Eosinophils # (A) 0.3 k/uL (0-0.7); Eosinophils % (A) 6 %; HCT 42.1 % (39.0-53.0); HGB 13.9 gm/dL (13.0-17.5); Lymphocytes # (A) 1.4 k/uL (1.0-4.8); Lymphocytes % (A) 28 %; MCH 29.6 pg (25.0-35.0); MCHC 32.9 g/dL (31.0-37.0); Mean Platelet Volume 8.3; Monocytes # (A) 0.4 k/uL (0-1.0); Monocytes % (A) 8 %; Neutrophils # (A) 2.8 k/uL (1.3-7.7); Neutrophils % (A) 56 %; Platelet Count 212 k/uL (150-450); RBC 4.68 m/uL (4.30-5.90); RDW 12.7 % (11.5-15.5)
--- NOTE | 2018-02-22 09:36 | P.DS ---
Providers Date of admission: 02/19/18 19:07 Expected date of discharge: 02/22/18 Attending physician: Jose Lea Consults: 02/18/18 09:02 Consult Physician Routine Consulting Provider: Hiren Shukla Consult Reason/Comments: left foot cellulitis Do you want consulting provider notified?: Yes 02/18/18 09:06 Consult Physician Routine Consulting Provider: All Salazar Consult Reason/Comments: medical managment Do you want consulting provider notified?: Yes Primary care physician: Stated None - Discharge Diagnosis(es) (1) Foot abscess, left This is a 68-year-old male who is status post I&D of the left foot. The patient had stepped on a toothpick the evening before he was scheduled for shoulder surgery. When he arrived at the hospital his shoulder surgery was canceled and he was admitted on for an incision and drainage with evaluation for foreign body of the left foot. He went the above procedure which he tolerated well without complication. His postoperative hospital course has remained without complication. Dr. Shukla with infectious disease was consulted and recommended outpatient IV antibiotic therapy. Arrangements have been made for his outpatient antibiotic therapy. On day of discharge he desires discharge to home. On day of discharge he is afebrile, vital signs stable, wound benign, tolerating by mouth meds and diet, neurovascular status intact, calf is soft and nontender, denying new complaints, abdomen soft and nontender. Review of systems is negative for fever, chills, chest pain, shortness breath, nausea, vomiting, dizziness, headaches, slurred speech or other. Current Visit: Yes Status: Acute Priority: Medium Procedures: I and D left foot Patient Condition at Discharge: Good Plan - Discharge Summary Discharge Rx Participant: No New Discharge Prescriptions: New HYDROcodone/APAP 5-325MG [[place] 5] 1 - 2 each PO Q4-6H PRN #60 tab PRN Reason: Pain Sennosides-Docusate Sodium [Senokot-S] 2 tab PO DAILY #30 tablet cefTRIAXone [Rocephin] 2,000 mg IVP Q24HR #40 ml No Action Naproxen Sodium [Aleve] 440 mg PO HS Cholecalciferol (Vitamin D3) [Vitamin D3] 2,000 unit PO HS Lisinopril [Prinivil] 20 mg PO HS Atorvastatin [Lipitor] 20 mg PO HS Discharge Medication List Atorvastatin [Lipitor] 20 mg PO HS 02/13/18 [History] Cholecalciferol (Vitamin D3) [Vitamin D3] 2,000 unit PO HS 02/13/18 [History] Lisinopril [Prinivil] 20 mg PO HS 02/13/18 [History] Naproxen Sodium [Aleve] 440 mg PO HS 02/13/18 [History] HYDROcodone/APAP 5-325MG [[place] 5] 1 - 2 each PO Q4-6H PRN #60 tab 02/21/18 [Rx] Sennosides-Docusate Sodium [Senokot-S] 2 tab PO DAILY #30 tablet 02/21/18 [Rx] cefTRIAXone [Rocephin] 2,000 mg IVP Q24HR #40 ml 02/21/18 [Rx] Follow up Appointment(s)/Referral(s): Jose Lea DO [Doctor of Osteopathic Medicine] - 1 Week [facility], [NON-STAFF] - Ambulatory/Diagnostic Orders: Ambulatory Miscellaneous Order [MISC.AMB] Location: Determined By Patient Activity/Diet/Wound Care/Special Instructions: [facility] can be contacted at [phone]. Wear premium equalizer boot when ambulating Weightbearing as tolerated with boot on Wound care and IV antibiotics per Dr. Shukla Follow up with Dr. Lea in 1 week Discharge Disposition: HOME SELF-CARE
[2018-02-22] MEDS: MULTIVITAMINS, THERA 1 EACH TAB PO SCH (11:52)
[2018-02-22] MEDS ORDERED: cefTRIAXone IN SWFI 2,000 MG/20 ML SYRINGE IVP SCH (13:00)
== END 2018-02-22 13:08 | disposition home health service (06) | DRG 501 ==
LOC: OR 06:14 → 4MS4W 13:19 → UNDOADMOB 23:49 → OR 23:49 → 4MS4W 23:49 → OR 02-19 19:10
PROVIDERS: ADMIT Orthopaedic Surgery; ATTEND Orthopaedic Surgery
PROC: 0L9W0ZZ Drainage of Left Foot Tendon, Open Approach (ICD-10-PCS; principal; 2018-02-20)
PROC: 02HV33Z Insertion of Infusion Device into Superior Vena Cava, Percutaneous Approach (ICD-10-PCS; 2018-02-21 10:10)
DX: M75.121 Complete rotator cuff tear or rupture of right shoulder, not specified as traumatic (principal); M86.172 Other acute osteomyelitis, left ankle and foot; E66.01 Morbid (severe) obesity due to excess calories; Z68.41 Body mass index [BMI] 40.0-44.9, adult; L03.116 Cellulitis of left lower limb; L02.612 Cutaneous abscess of left foot; S91.132A Puncture wound without foreign body of left great toe without damage to nail, initial encounter; L03.032 Cellulitis of left toe; Z53.09 Procedure and treatment not carried out because of other contraindication; M65.811 Other synovitis and tenosynovitis, right shoulder; M19.011 Primary osteoarthritis, right shoulder; M75.41 Impingement syndrome of right shoulder; M75.21 Bicipital tendinitis, right shoulder; I10 Essential (primary) hypertension; E78.5 Hyperlipidemia, unspecified; Z79.1 Long term (current) use of non-steroidal anti-inflammatories (NSAID); Z79.899 Other long term (current) drug therapy; W45.8XXA Other foreign body or object entering through skin, initial encounter; Y92.009 Unspecified place in unspecified non-institutional (private) residence as the place of occurrence of the external cause; Z80.9 Family history of malignant neoplasm, unspecified
CPT/HCPCS: 36569; 76937; 77001; 78315; 80053; 85025; 85652; 86140; 87070; 87075; 87205

== ENCOUNTER → 2018-09-22 | Outpatient (CLI) | payer MEDICARE ==
[2018-09-22 08:40] LABS: HCT 45.2 % (39.0-53.0); HGB 14.8 gm/dL (13.0-17.5); MCH 31.2 pg (25.0-35.0); MCHC 32.8 g/dL (31.0-37.0); Platelet Count 173 k/uL (150-450); RBC 4.76 m/uL (4.30-5.90); RDW 12.8 % (11.5-15.5); WBC 5.5 k/uL (3.8-10.6)
[2018-09-22 08:41] LABS: Appearance,Urine Clear (Clear); Bilirubin,Urine Negative (Negative); Blood,Urine Negative (Negative); Color,Urine Yellow; Glucose,Urine (UA) Negative (Negative); Ketones,Urine Negative (Negative); Leukocyte Esterase,Urine Negative (Negative); Nitrite,Urine Negative (Negative); Protein,Urine Negative (Negative); Specific Gravity,Urine 1.024 (1.001-1.035); Urobilinogen,Urine <2.0 mg/dL (<2.0)
[2018-09-22 08:47] LABS: Partial Thromboplastin Time 24.2 sec (22.0-30.0); Prothrombin Time 9.8 sec (9.0-12.0)
[2018-09-22 08:55] LABS: ALT 42 U/L (21-72); AST 38 U/L (17-59); Albumin 4.1 g/dL (3.5-5.0); Alkaline Phosphatase 55 U/L (38-126); Anion Gap 7 mmol/L; Blood Urea Nitrogen 26 mg/dL (9-20); Calcium 9.7 mg/dL (8.4-10.2); Carbon Dioxide 27 mmol/L (22-30); Chloride 110 mmol/L (98-107); Glucose 115 mg/dL (74-99); Potassium 5.2 mmol/L (3.5-5.1); Sodium 144 mmol/L (137-145); Total Bilirubin 0.5 mg/dL (0.2-1.3); Total Protein 7.3 g/dL (6.3-8.2)
== END | disposition home or self-care (01) ==
LOC: LABPAT 07:44
PROVIDERS: ATTEND Orthopaedic Surgery
DX: Z01.818 Encounter for other preprocedural examination (principal); Z01.812 Encounter for preprocedural laboratory examination; M19.011 Primary osteoarthritis, right shoulder
CPT/HCPCS: 36415; 80053; 81003; 85027; 85610; 85730; 87070; 93005

== ENCOUNTER 2018-09-29 09:56 | Inpatient (IN) | payer MEDICARE ==
[2018-09-22 13:26] VITALS: BMI 40.3
[~2018-09-29 09:56] MED LIST changes: +ACETAMINOPHEN TAB 500 MG TAB PO ONE; -DEXAMETHASONE SOD PHOSPHATE 10 MG/ML 1 ML VIAL IV ONE; +HYDROmorphone 1 MG/ML 1 ML SYRINGE IVP PRN; -LACTATED RINGERS 1,000 ML IV SCH; +MELOXICAM 7.5 MG TAB PO ONE; -SCOPOLAMINE 1.5MG/72HR PATCH TRANSDERM ONE; +TRANEXAMIC ACID 1,000 MG in SODIUM CHLORIDE 0.9% 50 ML IVPB ONE
[2018-09-29] MEDS: LACTATED RINGERS 1,000 ML IV SCH (12:15)
[2018-09-29] MEDS ORDERED: PHENYLEPHRINE-0.9% NACL SYG 1 MG/10 ML SYRINGE ONE (12:47)
[2018-09-29] MEDS ORDERED: SODIUM CHLORIDE 0.9% 100 ML BAG ONE (12:47)
[2018-09-29] MEDS ORDERED: MIDAZOLAM 2 MG/2 ML VIAL ONE (12:47)
[2018-09-29] MEDS ORDERED: LIDOCAINE 1% INJ 10MG/ML (20 ML MDV) ONE (12:47)
[2018-09-29] MEDS ORDERED: NEOSTIGMINE 1 MG/ML 10 ML VIAL ONE (12:47)
[2018-09-29] MEDS ORDERED: ROPIVACAINE 5 MG/ML 30 ML VIAL ONE (12:47)
[2018-09-29] MEDS ORDERED: fentaNYL (PF) 50 MCG/ML 2 ML AMP ONE (12:47)
[2018-09-29] MEDS ORDERED: GLYCOPYRROLATE 0.2 MG/ML 2 ML VIAL ONE (12:47)
[2018-09-29] MEDS ORDERED: SUCCINYLCHOLINE CHLORIDE 100 MG/5 ML SYR IV ONE (12:47)
[2018-09-29] MEDS ORDERED: PROPOFOL 10 MG/ML 20 ML VIAL IV ONE (12:47)
[2018-09-29] MEDS ORDERED: ROCURONIUM BROMIDE 10 MG/ML 10 ML VIAL IV ONE (12:47)
[2018-09-29] MEDS ORDERED: TRANEXAMIC ACID 1,000 MG/10 ML VIAL ONE (12:47)
[2018-09-29] MEDS ORDERED: ePHEDrine SULFATE/0.9% NACL/PF 50 MG/5 ML SYRINGE IV ONE (12:47)
[2018-09-29] MEDS ORDERED: HYDROmorphone 1 MG/ML 1 ML SYRINGE IVP PRN ×3 (12:55)
[2018-09-29] MEDS ORDERED: SENNOSIDES-DOCUSATE SODIUM 1 EACH TAB PO PRN (12:55)
[2018-09-29] MEDS ORDERED: hydrOXYzine PAMOATE 25 MG CAP PO PRN (12:55)
[2018-09-29] MEDS ORDERED: HYDROcodone/APAP 5-325MG 1 EACH TAB PO PRN ×2 (12:55)
[2018-09-29] MEDS ORDERED: ONDANSETRON 4 MG/2 ML VIAL IVP PRN (12:55)
[2018-09-29] MEDS ORDERED: MIDAZOLAM 2 MG/2 ML VIAL IV ONE (13:13)
[2018-09-29] MEDS ORDERED: ceFAZolin 3,000 MG in SODIUM CHLORIDE 0.9% IRRIGATIO 3,000 ML IRRIGATION ONE (14:26)
--- NOTE | 2018-09-29 15:20 | P.OP ---
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 Biomet comprehensive reverse shoulder system, humeral bearing, 44 mm x 36 mm, standard Biomet comprehensive reverse shoulder system, humeral tray with locking ring, 44 mm, standard Biomet comprehensive reverse shoulder, Glenosphere baseplate, 25 mm Biomet comprehensive reverse shoulder, central screw, 6.5 mm x 25 mm Biomet comprehensive reverse shoulder, fixed locking screw, 4.75 x 25 mm, 15 mm , 15 mm, 25 mm. Biomet comprehensive reverse shoulder glenosphere, 36 mm, standard All components were press-fit. Articulation is metal on polyethylene. Anesthesia: SAMANTHA Surgeon: Josef Brock Store Standards Associate #1: Sheela Hart Estimated Blood Loss (ml): 150 Pathology: other (Humeral head) Condition: stable Disposition: PACU Indications for Procedure: This is a patient that presented to my office with severe pain in the shoulder. X-rays demonstrated severe osteoarthritis of the glenohumeral joint of her shoulder. After failure of conservative treatment, we discussed the surgical and nonsurgical treatment options at length. The patient wishes to proceed with a reverse total shoulder arthroplasty. Patient is aware of the complications of the procedure which include but are not limited to infection, hardware failure, persistent pain, dislocation, and nerve injury. Informed consent was obtained. Operative Findings: The operative findings are consistent with severe osteoarthritis of the right shoulder with chronic rotator cuff tear Description of Procedure: The patient was seen in the preoperative area, consent was reviewed, and operative site was marked with a skin marker. Patient was then brought to the operating room and given preoperative antibiotics intravenously. Patient was also given 1 g of Tranexamic acid intravenously. A general anesthetic was administered by the anesthesia department. A Oleary catheter was placed by the nursing staff. The patient was then placed in a beachchair position with the bony prominences well-padded and the head secured. The shoulder was then prepped and draped in the usual sterile fashion. A universal timeout was then performed, which confirmed the patient's name, surgical site, ALLERGIES, and consent. A standard deltopectoral approach was performed. The skin and subcutaneous tissue was sharply dissected down to the deltoid fascia. The cephalic vein was then identified and retracted medially. The deltopectoral interval was then utilized to expose the subscapularis tendon. A retractor was then placed under the coracobrachialis tendon retracted medially, and the deltoid. The axillary nerve is palpated and protected throughout the procedure. The subscapularis tendon was then released and retracted medially. The humeral head was then exposed easily. The rotator cuff tendon was found to be completely torn and retracted. After the humeral head was exposed, osteophytes were removed with a Ronguer. Next the humeral stem was prepared. A starter reamer was then placed through the humeral head along the axis of the humeral shaft just lateral to the articular surface and just medial to the rotator cuff attachment. Sequential reaming was performed to the appropriate size reamer was inserted to the # between the 3 and 4 on the reamer. Next the intramedullary resection guide was placed on the reamer shaft. It was placed to the appropriate resection depth and angle of 30 of retroversion. Resection guide block was then secured with Steinmann pins. The proximal humerus was then resected. The block was then removed and the humerus was then broached sequentially to the same size as the reamer. After the broaches fully seated, the broach handle was removed and a broach cover was placed protect the humerus while the glenoid was prepared. Next attention was directed to the glenoid. The appropriate retractors were placed around the glenoid and any remaining soft tissues was removed from around the glenoid. After the glenoid was adequately exposed, the threaded glenoid guide was placed onto the glenoid and a 3.2 mm Steinmann pin was inserted in the glenoid at the desired angle and position, ensuring the pin engaged medial cortical wall. Next, the cannulated baseplate reamer was placed over the top of the Steinmann pin. The glenoid was then reamed to the appropriate depth. The glenoid reamer was then removed, leaving the Steinmann pin. The glenoid Donato plate implant was placed on the end of the cannulated baseplate impactor. The baseplate was then impacted fully into the glenoid. Next the 6.5 mm central screw was then placed which afforded excellent fixation. The 4 peripheral locking screws were then drilled measured and placed. Next the appropriate glenosphere was opened and impacted into the glenoid baseplate. Attention was then redirected to the humerus. Next a trial humeral tray was placed in the shoulder was reduced. Shoulder was taken through a full range of motion and found to be stable. The shoulder was then gently dislocated, and the trial humerus and humeral tray were removed. The final humeral stem was impacted in the final humeral tray was impacted as well. Shoulder was then relocated. Again the shoulder was taken through a range of motion and found to have no instability. Shoulder was then irrigated with pulsatile lavage. A second dose of 1 g of Tranexamic acid was given. The subscapularis was then repaired with #1 Vicryl. The deltopectoral interval was then closed with #1 Vicryl as well. The subcutaneous tissues were closed with 2-0 Vicryl then Dermabond was placed on the skin. A sterile dressing was then applied, the patient was transported to the recovery room in an arm sling in stable condition. The assistant department manager CHULA Fox was required due the complexity of surgery and the need for a skilled director medical surgical.
[2018-09-29] MEDS ORDERED: ROPIVACAINE 5 MG/ML 30 ML VIAL MISCELLANE ONE (15:53)
[2018-09-29] MEDS ORDERED: ceFAZolin 3 GM in SODIUM CHLORIDE 0.9% 100 ML IVPB SCH (16:00)
[2018-09-29] MEDS: SODIUM CHLORIDE 0.9% 1,000 ML IV SCH ×2 (18:12→22:20)
--- NOTE | 2018-09-29 20:06 | XR ---
EXAMINATION TYPE: XR shoulder limited RT DATE OF EXAM: 09/29/2018 COMPARISON: NONE HISTORY: Postop shoulder surgery TECHNIQUE: Single view FINDINGS: There is a right shoulder prosthesis. Components appear in anatomic position. IMPRESSION: No complicating process seen.
[2018-09-29] MEDS ORDERED: MULTIVITAMINS, THERA 1 EACH TAB PO SCH (21:00)
[2018-09-29] MEDS ORDERED: ATORVASTATIN 20 MG TAB PO SCH (21:00)
[2018-09-29] MEDS ORDERED: LISINOPRIL 20 MG TAB PO SCH (21:00)
[2018-09-30] MEDS: LACTATED RINGERS 1,000 ML IV SCH (05:15)
--- NOTE | 2018-09-30 06:50 | CONS ---
CONSULTATION DATE OF CONSULTATION: 09/29/2018. REASON FOR CONSULTATION: Medical management requested by Dr. Brock. CONSULTATION: This is a pleasant 68-year-old patient of Dr. Allen. Chronic stable medical conditions include hypertension, hyperlipidemia and primary osteoarthritis in joints. The patient has undergone right shoulder arthroplasty. Post procedure has some pain. No nausea or vomiting. No dizziness. No lightheadedness. Did tolerate his supper. He is sitting at the edge of the bed, comfortable. REVIEW OF SYSTEMS: CONSTITUTIONAL: None. HEENT: None. RESPIRATORY: None. CARDIOVASCULAR: None. GASTROINTESTINAL: None. GENITOURINARY: None. MUSCULOSKELETAL: Arthritic pain in many joints. DERMATOLOGICAL: None. HEMATOLOGIC: None. LYMPHATIC: None. PSYCHIATRY: None. NEUROLOGICAL: None. PAST MEDICAL HISTORY: Past medical history of hyperlipidemia, hypertension, osteoarthritis, right rotator cuff tear. PAST SURGICAL HISTORY: Left knee scope, left knee Reaves cyst excised, left foot clubfoot surgery. SOCIAL HISTORY: . Does not smoke or drink alcohol. Patient does part-time work with delivery of car parts. FAMILY HISTORY: Family history of cancer, type unknown. HOME MEDICATIONS: 1. Nasal Relief 2 sprays each nostril q.h.s. 2. Aleve 440 mg q.h.s. 3. Multivitamin Adult Gummies 2 tablets p.o. q.h.s. 4. Prinivil 20 mg p.o. q.h.s. 5. Vitamin D3, 2000 units p.o. q.h.s. 6. Lipitor 20 mg q.h.s. ALLERGIES: HAYFEVER. PHYSICAL EXAMINATION: On examination, temperature 97.9, pulse 92, respiration 18, blood pressure 134/75, pulse ox 93% on room air. GENERAL APPEARANCE: Well built, BMI 40.3, sitting at the edge of bed, comfortable. EYES: Pupils equal. Conjunctivae normal. HENT: External appearance of nose and ears normal. Oral cavity normal. NECK: JVD not raised. Mass not palpable. RESPIRATORY: Effort normal. LUNGS: Fair entry. CARDIOVASCULAR: First and second sounds normal. No edema. ABDOMEN: Soft, nontender. Liver and spleen not palpable. LYMPHATIC: No lymph node palpable in the neck and axillae. PSYCHIATRY: Alert and oriented x3. Mood and affect normal. NEUROLOGICAL: Pupils equal. Cranial nerves grossly intact. Power and sensation grossly intact. EXTREMITIES: Right arm in a sling. Sensation present in the right hand. INVESTIGATIONS: Lab work from 09/22/2018 shows a white count of 5.5, hemoglobin 14.8. Repeat potassium was 4.8. BUN 26, creatinine 0.93. ASSESSMENT: 1. Right total shoulder arthroplasty. 2. Primary osteoarthritis. 3. Essential hypertension. 4. Hyperlipidemia. 5. Morbid obesity, body mass index 40.2. PLAN: Home medications are resumed. The patient has got Venodyne boots for DVT prophylaxis. Also got IV Ancef for antibiotic prophylaxis. The patient should see a dietitian after discharge for weight loss measures through his family doctor. Care was discussed with the patient. Questions were answered. Thank you, Dr. Brock. JOSHL / SAMMI: [id number] /
[2018-09-30 08:04] VITALS: BP 125/74; PULSE 69; RESP 18; TEMP 98
--- NOTE | 2018-09-30 09:36 | P.DS ---
Providers Date of admission: 09/29/18 11:35 Expected date of discharge: 09/30/18 Attending physician: Josef Brock Consults: 09/29/18 12:55 Consult Physician Routine Consulting Provider: All Salazar Consult Reason/Comments: medical management Do you want consulting provider notified?: Yes Primary care physician: Vj Allen - Discharge Diagnosis(es) (1) S/p reverse total shoulder arthroplasty Current Visit: Yes Status: Acute (2) Osteoarthritis of right shoulder Current Visit: Yes Status: Acute Hospital Course: This is a 68-year-old male with known history of degenerative arthritis of the right shoulder and chronic rotator cuff tear. The patient presents for evaluation. After discussion and consideration patient elects to proceed with a reverse total shoulder arthroplasty. The patient is seen preoperatively by Dr. Brock and medically cleared for surgery by their primary care physician. Patient is admitted to [facility] on 09/29/2018 for a reverse total shoulder arthroplasty. The procedures performed without complication or sequelae. The patient is doing well postoperatively. Labs and vital signs are stable on day of discharge. On day of discharge patient's shoulder incision is healing well. There is minimal erythema. There is no drainage noted at this time. There is minimal soft tissue swelling to the knee. Patient has good range of motion of the right hand and wrist without difficulty or pain. Neurovascular status to the right upper extremity is intact. Patient is discharged home in good condition. Please see med rec for accurate list of home medications. Plan - Discharge Summary Discharge Rx Participant: Yes New Discharge Prescriptions: New HYDROcodone/APAP 5-325MG [[place] 5-325] 1 - 2 tab PO Q4-6H PRN #84 tab PRN Reason: Pain Sennosides [Senokot] 1 tab PO BID #60 tablet No Action Naproxen Sodium [Aleve] 440 mg PO HS Cholecalciferol (Vitamin D3) [Vitamin D3] 2,000 unit PO HS Lisinopril [Prinivil] 20 mg PO HS Atorvastatin [Lipitor] 20 mg PO HS Multivitamin [Multivitamins Adult Gummies] 2 tab PO HS Nasal Relief 2 sprays EA NOSTRIL HS Discharge Medication List Atorvastatin [Lipitor] 20 mg PO HS 02/13/18 [History] Cholecalciferol (Vitamin D3) [Vitamin D3] 2,000 unit PO HS 02/13/18 [History] Lisinopril [Prinivil] 20 mg PO HS 02/13/18 [History] Naproxen Sodium [Aleve] 440 mg PO HS 02/13/18 [History] Multivitamin [Multivitamins Adult Gummies] 2 tab PO HS 09/22/18 [History] Nasal Relief 2 sprays EA NOSTRIL HS 09/22/18 [History] HYDROcodone/APAP 5-325MG [[place] 5-325] 1 - 2 tab PO Q4-6H PRN #84 tab 09/30/18 [ Rx] Sennosides [Senokot] 1 tab PO BID #60 tablet 09/30/18 [Rx] Follow up Appointment(s)/Referral(s): Josef Brock DO [Doctor of Osteopathic Medicine] - 2 Weeks Activity/Diet/Wound Care/Special Instructions: Maintain bandage. Dressing remains in place for 10 days. May shower with dressing in place. Maintain sling to right upper extremity. Rest and ice the right shoulder. Please follow-up with [facility] in 2 weeks and call with any questions or concerns, . Discharge Disposition: HOME SELF-CARE
[2018-09-30] MEDS: SODIUM CHLORIDE 0.9% 1,000 ML IV SCH (10:07)
--- NOTE | 2018-09-30 10:16 | P.ONQ ---
Anesthesiology Proc Note - PNB - Peripheral Nerve Block Performed Right Interscalene Single Time Out Performed: Yes Procedure Start Time: 15:50 Procedure Stop Time: 15:53 Indication: Acute Post-Operative Pain, Requested by physician Sedation Type: Sedate with meaningful contact maintained Preparation: Sterile Prep Position: Supine Needle Size: 50mm (2") Needle Gauge: 21 Technique: Ultrasound Injectate: 0.5% Ropivacaine (see comment for volume) (ropi .5% 30cc) Blood Aspirated: No Pain Paresthesia on Injection Noted: No Resistance on Injection: Normal Events: Uneventful and Well Tolerated
== END 2018-09-30 11:32 | disposition home or self-care (01) | DRG 483 ==
LOC: 2ORMAIN 11:35 → 4SSUR 15:29
PROVIDERS: ADMIT Orthopaedic Surgery; ATTEND Orthopaedic Surgery
PROC: 0RRJ00Z Replacement of Right Shoulder Joint with Reverse Ball and Socket Synthetic Substitute, Open Approach (ICD-10-PCS; principal; 2018-09-29 13:40)
DX: M19.011 Primary osteoarthritis, right shoulder (principal); Z68.41 Body mass index [BMI] 40.0-44.9, adult; M75.121 Complete rotator cuff tear or rupture of right shoulder, not specified as traumatic; E66.01 Morbid (severe) obesity due to excess calories; I10 Essential (primary) hypertension; E78.2 Mixed hyperlipidemia; N40.0 Benign prostatic hyperplasia without lower urinary tract symptoms; E55.9 Vitamin D deficiency, unspecified; Z79.899 Other long term (current) drug therapy; Z80.9 Family history of malignant neoplasm, unspecified; Z82.49 Family history of ischemic heart disease and other diseases of the circulatory system
CPT/HCPCS: 64415; 84132; 88300

== ENCOUNTER → 2019-02-18 | Outpatient (CLI) | payer MEDICARE ==
--- NOTE | 2019-02-18 17:07 | US ---
EXAMINATION TYPE: US venous doppler duplex LE RT DATE OF EXAM: 02/18/2019 4:21 PM COMPARISON: NONE CLINICAL HISTORY: R22.41 SWELLING,MASS,LUMP. Right leg swelling SIDE PERFORMED: Right TECHNIQUE: The lower extremity deep venous system is examined utilizing real time linear array sonog rudy with graded compression, doppler sonography and color-flow sonography. VESSELS IMAGED: External Iliac Vein (EIV) Common Femoral Vein Deep Femoral Vein Greater Saphenous Vein * Femoral Vein Popliteal Vein Small Saphenous Vein * Proximal Calf Veins (* superficial vessels) Right Leg: Negative for DVT Within the right popliteal fossa, there is a hypoechoic area visualized measuring 3.4 x 0.9 x 2.0 cm, probable molina's cyst IMPRESSION: No evidence of deep venous thrombosis in the right leg. There is a popliteal cyst.
== END | disposition home or self-care (01) ==
LOC: RADUSWWP 15:49
PROVIDERS: ATTEND Family Medicine
DX: R22.41 Localized swelling, mass and lump, right lower limb (principal); M71.21 Synovial cyst of popliteal space [Baker], right knee

== ENCOUNTER 2020-01-10 17:56 | Emergency (ER) | payer MEDICARE ==
[2020-01-10 18:03] VITALS: PULSE 62; RESP 18; TEMP 97.4
[2020-01-10] MEDS ORDERED: MORPHINE SULFATE 4 MG/ML SYRINGE IM STA (18:31)
--- NOTE | 2020-01-10 18:56 | ED ---
General Adult HPI - General Chief complaint: Extremity Injury, Upper Stated complaint: Fall,Shoulder Injury Time Seen by Provider: 01/10/20 18:05 Source: patient, RN notes reviewed Mode of arrival: ambulatory Limitations: no limitations - History of Present Illness Initial comments: 69-year-old male presents for left shoulder pain. Patient was taking out his trash when he slipped and fell on the left shoulder. Patient states it is very painful to move his left shoulder at all. Patient did not hit his head. Denies neck pain. Denies any other pain besides his left shoulder. States his hand did feel numb initially but he has now. Sensation in the left hand. Denies any difficulty moving the fingers of the left hand. Denies any history of blood thinner usage.Patient has no other complaints at this time including shortness of breath, chest pain, abdominal pain, nausea or vomiting, headache, or visual changes. - Related Data Home Medications Medication Instructions Recorded Confirmed Atorvastatin [Lipitor] 20 mg PO HS 02/13/18 09/29/18 Cholecalciferol (Vitamin D3) 2,000 unit PO HS 02/13/18 09/29/18 [Vitamin D3] Lisinopril [Prinivil] 20 mg PO HS 02/13/18 09/29/18 Naproxen Sodium [Aleve] 440 mg PO HS 02/13/18 09/29/18 Multivitamin [Multivitamins Adult 2 tab PO HS 09/22/18 09/29/18 Gummies] Nasal Relief 2 sprays EA NOSTRIL HS 09/22/18 09/29/18 Previous Rx's Medication Instructions Recorded HYDROcodone/APAP 5-325MG [[place] 1 - 2 tab PO Q4-6H PRN #84 tab 09/30/18 5-325] Sennosides [Senokot] 1 tab PO BID #60 tablet 09/30/18 Allergies Allergy/AdvReac Type Severity Reaction Status Date / Time HAYFEVER Allergy SINUS SX Uncoded 09/29/18 12:14 Review of Systems ROS Statement: Those systems with pertinent positive or pertinent negative responses have been documented in the HPI. ROS Other: All systems not noted in ROS Statement are negative. Past Medical History Past Medical History: Hyperlipidemia, Hypertension Additional Past Medical History / Comment(s): RT ROTATOR CUFF TEAR. History of Any Multi-Drug Resistant Organisms: None Reported Past Surgical History: Orthopedic Surgery Additional Past Surgical History / Comment(s): LT KNEE SCOPE; LT KNEE CARDOSO CYST EXC., shoulder, L foot Past Anesthesia/Blood Transfusion Reactions: No Reported Reaction Past Psychological History: No Psychological Hx Reported Smoking Status: Never smoker Past Alcohol Use History: None Reported Past Drug Use History: None Reported - Past Family History Father Family Medical History: Cancer Mother Family Medical History: Cancer General Exam Limitations: no limitations General appearance: alert, in no apparent distress Head exam: Present: atraumatic, normocephalic, normal inspection Eye exam: Present: normal appearance, PERRL, EOMI. Absent: scleral icterus, conjunctival injection, periorbital swelling ENT exam: Present: normal exam, mucous membranes moist Neck exam: Present: normal inspection, full ROM. Absent: tenderness, meningismus, lymphadenopathy Respiratory exam: Present: normal lung sounds bilaterally. Absent: respiratory distress, wheezes, rales, rhonchi, stridor Cardiovascular Exam: Present: regular rate, normal rhythm, normal heart sounds. Absent: systolic murmur, diastolic murmur, rubs, gallop, clicks GI/Abdominal exam: Present: soft, normal bowel sounds. Absent: distended, tenderness, guarding, rebound, rigid Extremities exam: Present: normal capillary refill (Capillary refill is less than 2 seconds, radial pulses 2+ in the left upper extremity.), other (Brick Machine Operator strength 5 out of 5 in the left upper she may. Sensation intact throughout the left upper extremities. Patient is able to make okay sign, abduction and adduction fingers, and perform flexion and extension of the left wrist.). Absent: full ROM (pt is unable to move left shoulder secondary to pain. With any movement patient cried out in pain.), pedal edema, joint swelling, calf tenderness Course Vital Signs 01/10/20 18:00 Temperature 97.4 F L Pulse Rate 62 Respiratory 18 Rate Blood Pressure 185/84 O2 Sat by Pulse 96 Oximetry Medical Decision Making - Medical Decision Making X-ray of the left humerus shows no fracture seen, mild osteoarthritis. X-ray of the left shoulder shows mild degenerative changes. No fracture seen. Neurovascular status intact in the left upper extremity. X-ray of the left shoulder shows mild degenerative changes. No fracture seen. X-ray of the humerus shows mild osteoarthritis without fracture seen. Patient was given IM morphine on initial presentation. This did help somewhat however prior to discharge patient is still complaining of significant pain. He was given IM Dilaudid. He will also be given a starter pack of Tylenol 3. His drive him home. A sling was applied given degree of pain for comfort. [facility] in the past. Dr. Santillan is on for OA. Patient will be referred over and will return with any worsening symptoms.I discussed this case with attending Dr. Fry who agrees with this assessment and treatment plan. - Radiology Data Radiology results: report reviewed, image reviewed (By both myself and Dr. Fry) Disposition Clinical Impression: Shoulder pain, left Disposition: HOME SELF-CARE Condition: Good Instructions (If sedation given, give patient instructions): Shoulder Pain (ED) Additional Instructions: Please take Tylenol [address] or operate machinery taking Tylenol 3. Follow up with orthopedics in one to 2 days. Return here to the emergency department if you have any worsening symptoms. Is patient prescribed a controlled substance at d/c from ED?: No Referrals: Vj Allen DO [Primary Care Provider] - 1-2 days Panchito Santillan DO [Medical Doctor] - 1-2 days Time of Disposition: 20:11
--- NOTE | 2020-01-10 19:39 | XR ---
EXAMINATION TYPE: XR shoulder complete LT DATE OF EXAM: 01/10/2020 COMPARISON: NONE HISTORY: Pain. Fall. TECHNIQUE: 3 views FINDINGS: I see no fracture nor dislocation. Glenohumeral joint is anatomic. The AC joint is intact. There is no sign of a fracture. There is slight narrowing of the shoulder joint space. IMPRESSION: Mild degenerative changes. No fracture seen.
--- NOTE | 2020-01-10 19:40 | XR ---
EXAMINATION TYPE: XR humerus LT DATE OF EXAM: 01/10/2020 COMPARISON: NONE HISTORY: Pain TECHNIQUE: 3 views FINDINGS: Elbow joint and shoulder joint appear intact. I see no fracture nor dislocation. There is s purring on the olecranon process and the coronoid process of the ulna. There is mild spurring at the shoulder joint. IMPRESSION: Mild osteoarthritis. No fracture seen.
[2020-01-10] MEDS ORDERED: HYDROmorphone 0.5 MG/0.5 ML SYRINGE IM STA (20:09)
[2020-01-10] MEDS ORDERED: ACET/COD 300 MG/30 MG STARTER PACK 6 TAB BTL PO STA (20:11)
[2020-01-10 20:30] VITALS: BP 167/80
== END 2020-01-10 20:30 | disposition home or self-care (01) ==
LOC: EC 17:56
DX: M25.512 Pain in left shoulder (principal); M19.012 Primary osteoarthritis, left shoulder; I10 Essential (primary) hypertension; E78.5 Hyperlipidemia, unspecified; Z79.1 Long term (current) use of non-steroidal anti-inflammatories (NSAID); Z79.899 Other long term (current) drug therapy; Z91.048 Other nonmedicinal substance allergy status; W01.0XXA Fall on same level from slipping, tripping and stumbling without subsequent striking against object, initial encounter; Y92.007 Garden or yard of unspecified non-institutional (private) residence as the place of occurrence of the external cause
CPT/HCPCS: 99283 ×2; 96372 ×3; 73030; 73060; J2270; J1170

== ENCOUNTER → 2020-02-26 | Outpatient (CLI) | payer MEDICARE ==
--- NOTE | 2020-03-04 10:44 | HM ---
HOLTER MONITOR REPORT Patient was monitored for 24 hours. The baseline rhythm is sinus mechanism with normal conduction. The average rate is 57 beats per minute, minimum rate 36, maximum 118 beats per minute. Ventricular ectopic activity was present in form of rare single PVCs. Supraventricular ectopic activity was present in the form of rare single PACs. No diary was available. CONCLUSION: 1. Sinus mechanism baseline rhythm. 2. Rare ventricular ectopic activity. 3. Rare supraventricular ectopic activity. 4. No diary was available. MMODL / IJN: [id number] /
== END | disposition home or self-care (01) ==
LOC: RADECHMAIN 11:43
PROVIDERS: ATTEND Family Medicine
DX: I49.3 Ventricular premature depolarization (principal)
CPT/HCPCS: 93225; 93226

== ENCOUNTER → 2020-06-09 | Outpatient (CLI) | payer MEDICARE | END | disposition home or self-care (01) | LOC: LABPAT 07:43 | PROVIDERS: ATTEND Orthopaedic Surgery Sports Medicine | DX: Z01.812 Encounter for preprocedural laboratory examination (principal) | CPT/HCPCS: 87070 ==

== ENCOUNTER 2020-06-23 05:31 | Inpatient (IN) | payer MEDICARE ==
[~2020-06-23 05:31] MED LIST changes: +GABAPENTIN 300 MG CAP PO ONE; -HYDROmorphone 1 MG/ML 1 ML SYRINGE IVP PRN; -LIDOCAINE 1% 20 ML VIAL (10MG/ML) FOR IV START INTRADERMA PRN; +TRANEXAMIC ACID 1,000 MG in SODIUM CHLORIDE 0.9% 100 ML IVPB ONE; -TRANEXAMIC ACID 1,000 MG in SODIUM CHLORIDE 0.9% 50 ML IVPB ONE
[2020-06-23] MEDS ORDERED: MIDAZOLAM 2 MG/2 ML VIAL IV PRN (05:39)
[2020-06-23] MEDS ORDERED: DEXAMETHASONE SOD PHOSPHATE 10 MG/ML 1 ML VIAL IV ONE (05:39)
[2020-06-23] MEDS ORDERED: LIDOCAINE 1% (10MG/ML) FOR IV START INTRADERMA PRN (05:39)
[2020-06-23] MEDS ORDERED: HYDROmorphone 0.5 MG/0.5 ML SYRINGE IVP PRN ×4 (05:39→09:17)
[2020-06-23] MEDS ORDERED: fentaNYL (PF) 50 MCG/ML 2 ML AMP IVP PRN (05:39)
[2020-06-23] MEDS ORDERED: ONDANSETRON 4 MG/2 ML VIAL IVP ONE (05:39)
[2020-06-23] MEDS ORDERED: ONDANSETRON 4 MG/2 ML VIAL ONE (05:44)
[2020-06-23] MEDS ORDERED: ACETAMINOPHEN TAB 500 MG TAB ONE (05:44)
[2020-06-23] MEDS ORDERED: ROPIVACAINE 246.25 MG, EPINEPHrine 0.5 MG, KETOROLAC 30 MG, cloNIDine HCL/PF 80 MCG, WA... MISCELLANE ONE ×5 (06:00)
[2020-06-23] MEDS ORDERED: LACTATED RINGERS 1,000 ML IV ONE ×2 (06:10→08:00)
[2020-06-23] MEDS ORDERED: MIDAZOLAM 2 MG/2 ML VIAL IVP ONE (06:46)
[2020-06-23] MEDS ORDERED: GLYCOPYRROLATE 0.2 MG/ML 2 ML VIAL ONE (06:59)
[2020-06-23] MEDS ORDERED: ePHEDrine SULFATE/0.9% NACL/PF 50 MG/5 ML SYRINGE IV ONE (06:59)
[2020-06-23] MEDS ORDERED: ROPIVACAINE 5 MG/ML 30 ML VIAL ONE (06:59)
[2020-06-23] MEDS ORDERED: PHENYLEPHRINE-0.9% NACL SYG 1 MG/10 ML SYRINGE ONE (06:59)
[2020-06-23] MEDS ORDERED: SUCCINYLCHOLINE CHLORIDE 100 MG/5 ML SYR IV ONE (06:59)
[2020-06-23] MEDS ORDERED: fentaNYL (PF) 50 MCG/ML 2 ML AMP ONE (06:59)
[2020-06-23] MEDS ORDERED: NEOSTIGMINE 1 MG/ML 10 ML VIAL ONE (06:59)
[2020-06-23] MEDS ORDERED: ROCURONIUM BROMIDE 10 MG/ML 5 ML VIAL IV ONE (06:59)
[2020-06-23] MEDS ORDERED: PROPOFOL 10 MG/ML 20 ML VIAL IV ONE (06:59)
[2020-06-23] MEDS ORDERED: LIDOCAINE 1% INJ 10MG/ML (20 ML MDV) ONE (06:59)
[2020-06-23] MEDS ORDERED: DEXAMETHASONE SOD PHOSPHATE 4 MG/ML 1 ML VIAL ONE (06:59)
[2020-06-23] MEDS ORDERED: PROCHLORPERAZINE SUPPOSITORY 25 MG SUPP RECTAL PRN (09:17)
[2020-06-23] MEDS ORDERED: diphenhydrAMINE 25 MG CAP PO PRN (09:17)
[2020-06-23] MEDS ORDERED: ONDANSETRON 4 MG/2 ML VIAL IVP PRN (09:17)
[2020-06-23] MEDS ORDERED: METOCLOPRAMIDE 5 MG/ML 2 ML VIAL IVP PRN (09:17)
[2020-06-23] MEDS ORDERED: SENNOSIDES-DOCUSATE SODIUM 1 EACH TAB PO PRN (09:17)
[2020-06-23] MEDS ORDERED: TEMAZEPAM 15 MG CAP PO PRN (09:17)
[2020-06-23] MEDS ORDERED: HYDROcodone/APAP 7.5-325MG 1 EACH TAB PO PRN ×2 (09:21)
--- NOTE | 2020-06-23 10:11 | XR ---
Left shoulder HISTORY: Status post left shoulder arthroplasty Single frontal view of the left shoulder Patient is status post left shoulder arthroplasty. There is anatomic alignment. There is an indwellin g drain. IMPRESSION: Orthopedic follow-up.
[2020-06-23] MEDS: LACTATED RINGERS 1,000 ML IV SCH ×3 (10:34→21:12)
--- NOTE | 2020-06-23 10:57 | OP ---
OPERATIVE REPORT DATE OF PROCEDURE: 06/23/2020 SURGEON: Natanael Hanley MD. REFERRAL AND INFORMATION AIDE: Deep LESLIE. PREOPERATIVE DIAGNOSIS: Left shoulder rotator cuff arthropathy. POSTOPERATIVE DIAGNOSIS: Left shoulder rotator cuff arthropathy. OPERATION: Left reverse total shoulder arthroplasty. ANESTHESIA: General endotracheal. ESTIMATED BLOOD LOSS: 100 mL. DRAINS: One deep drain. COMPLICATIONS: None apparent. DISPOSITION: Postanesthesia care unit. INDICATIONS: Darrel is a very pleasant 70-year-old gentleman with long-standing left shoulder pain. His workup including x-rays and MRI revealed advanced rotator cuff arthropathy of the left shoulder. At this point, it was felt that he has failed conservative management and he would like to proceed with operative intervention. Risks of procedure were discussed with him in detail. These risks include, but are not limited to, risk of infection, nerve damage, bleeding, pain, instability in the shoulder, loosening of the implants, periprosthetic fracture and deep infection. There is also a small risk of deep vein thrombosis which could lead to fatal pulmonary embolism. The patient understands the risks. All of his questions were answered with regard to the risks were answered to his satisfaction. An appropriate informed consent was obtained. DESCRIPTION OF THE PROCEDURE: The patient identified in preoperative holding area. Surgical site was marked by both the patient and myself. He was given 2 g of Ancef IV for prophylactic purposes. He was then transported to the operative suite, where he was placed supine on the operative table. A general anesthetic was then administered and dosed per the Anesthesia Department without apparent complication. Examination under anesthesia was then performed of the left shoulder. He had elevation to 150 degrees. External rotation of the side was to 80 degrees. Patient was then placed into the beach chair position well-padded in preparation for surgery. Great care was taken to ensure the cervical spine was in neutral alignment well-padded and maintained that way throughout the operative procedure. Great care was also taken to ensure that his legs were appropriately padded as well. The patient's left upper extremity was then prepped and draped in usual sterile fashion. Standard surgical pause undertaken to ensure that we were operating the correct site and that appropriate preop antibiotics were given. All staff in room are in agreement and we proceeded. The patient's left upper extremity prepped and draped. The acromion AC joint, clavicle, and coracoid were marked with surgical pen. A planned incision starting at the level of the clavicle extending distally over the deltopectoral interval approximately 1 cm lateral to the coracoid was marked with surgical pen. The incision was then made with a 10 blade scalpel. Dissection carried down sharply to the deltoid fascia. The deltopectoral interval was then identified at the level of the clavicle. A small band retractor was then placed onto the proximal deltoid. I then released the deltoid fascia on the lateral aspect of the cephalic vein. The vein was then left in its bed medially. The cephalic vein was protected throughout the entire case. I then identified the clavipectoral fascia. This was incised proximally to the level of the coracoacromial ligament. The coracoacromial ligament was then left intact. I then used my finger to spread the interval between the conjoint tendon and and the subscapularis. I felt for the axillary nerve which was readily palpable. I then cleared subacromial subdeltoid spaces of bursal and scar tissue. I then utilized a Begum retractor to hold the deltoid and expose the humeral head. The humeral head was completely devoid of any attachment of the rotator cuff. This included the subscapularis, supraspinatus and infraspinatus. The capsule was then incised anteriorly. I then continued to release the capsule along the inferior neck in a vertical fashion to approximately the 6 o'clock position. Great care was taken to ensure that the capsule was always visualized as it was released to avoid injuring the axillary nerve. I then brought a Rodriguez clinical documentation developer and with the arm externally rotated and abducted, I continued to release the capsule inferomedially to the 4 o'clock position. He had very minimal inferior osteophytes and these were now removed as well. This was done with a rongeur. I then proceeded with preparation of the humerus. I removed all the goat's herman osteophytes. I then removed the subchondral plate from the superior aspect of the humeral head utilizing a large rongeur. I then utilized a starting reamer to gain access to the humeral canal. This was 1 cm medial to the rotator cuff insertion, 1 cm posterior to the bicipital groove. I then prepared the humeral canal with hand reaming. I started with a 6 mm reamer and progressed incrementally in 1 mm increments until firm resistance was encountered. This was at 12 mm. The reamer handle was then left in place. I then utilized a humeral resection guide. This was set at 30 degrees of retrotorsion. The cutting block was then set at the insertion of the rotator cuff. I then proceeded to osteotomized the head with an oscillating saw. I removed the resection guide and then completed the osteotomy. I then proceeded with trial stem placement. I then broached the canal starting with 6 mm broach and then incrementally increased up to 12 mm broach. The 12 mm trial stem was then left in place. The biceps tendon had already been ruptured previously. I then utilized a bone hook to pull the humerus out laterally. Inspected the joint for any loose bodies. The condition of the cuff was started. The Bhattman retractor was then placed on the posterior glenoid rim. The arm was placed in approximately 80 degrees of abduction and in slight flexion on a Rodriguez stand. I then proceeded to remove the hypertrophic labrum to definitively identify the actual glenoid. I then utilized the mini base plate starting guide to place the starting pin in approximately 10 degrees of inferior tilt at the junction between the middle and inferior third of the glenoid. I then proceeded to over ream the starting pin. I then placed a mini base plate which seated firmly onto the glenoid. I then proceeded to place a central screw. I utilized a 30 mm central screw. The screw had excellent purchase in bone. I was able to rotate the scapula through the screwdriver when the screw was fully seated. I then placed 4 peripheral locking screws. The superior and inferior screws were 20 mm screws. The anterior and posterior screws were 15 mm screws. I then placed a standard glenoid sphere, it was a 36 mm glenoid sphere. This was offset inferiorly and then impacted onto the dry Rodrigues taper on the base plate. I then trialed with a standard tray and standard poly. It was relatively difficult reduction. The shoulder was stable throughout a full range of motion. The there was no impingement with internal or start with internal rotation. There was no impingement with elevation either. I then redislocated the shoulder. I then had the public service representative open a size 12 mini stem, a standard tray and a standard poly. The stem was then impacted into the proximal humerus in approximately 30 degrees of retrotorsion. I then impacted the polyethylene onto the tray on the back table. The tray was then impacted on the dried Rodrigues taper on the stem. The shoulder was then reduced. Again was taken through full range of motion. It was very stable. There was appropriate tension on the conjoined tendon. There was no impingement with internal rotation or at the elevation. We then proceeded with closure. A deep drain was then placed and brought out superiorly away from the incision. The wound was thoroughly irrigated with sterile saline solution with antibiotic added via pulse lavage. Approximately 500 mg of vancomycin powder was placed deep in the wound. The deltopectoral interval was then closed with 0 Vicryl interrupted suture. The subcutaneous tissue was again irrigated with sterile saline solution with antibiotic added. The remaining 500 mg of vancomycin powder was then placed subcutaneously. Subcutaneous tissue closed with 2-0 Vicryl interrupted suture. The skin was closed with a running 3-0 Quill suture. Dermabond was applied to the incision. A sterile dressing was then applied. The patient's left upper extremity was placed into a standard sling. Of note, prior to closure, I did feel for the axillary nerve which was intact. All sponge and needle counts were deemed correct prior to closure. The patient tolerated procedure without apparent complication. He was transferred to recovery room in stable condition. MMODL / IJN: [id number] /
--- NOTE | 2020-06-23 16:55 | P.CONS ---
History of Present Illness - Reason for Consult Consult date: 06/23/20 Medical management Requesting physician: Natanael Hanley - Chief Complaint Left shoulder pain - History of Present Illness Consultation: This is a very pleasant 70-year-old patient of Dr. Allen. Fundic stable medical conditions include hypertension, hyperlipidemia, osteoarthritis-multiple joints. Patient being bothered by left shoulder rotator cuff causing arthropathy. Patient underwent total arthroplasty reverse. Postprocedure joint is rather anesthetize. Left arm wrestling. at the bedside. No nausea vomiting. No chest pain or shortness of breath. Review of systems: GEN.: None EYES: None HEENT: None NECK: None RESPIRATORY: None CARDIOVASCULAR: None GASTROINTESTINAL: None GENITOURINARY: None MUSCULOSKELETAL: Multiple joint pains LYMPHATICS: None HEMATOLOGICAL: None PSYCHIATRY: None NEUROLOGICAL: None Past medical history to include: Hypertension, hyperlipidemia, rotator cuff dysfunction Social history: . Does not smoke. No alcohol since 1987. Worked as a van driver helper. Physical examination: VITAL SIGNS: 97.7, 53, 17, 125/71, 96% on room air GENERAL: BMI 32.8, propped up in bed, left ominously. EYES: Pupils equal. Conjunctiva normal. HEENT: External appearance of nose and ears normal, oral cavity grossly normal. NECK: JVD not raised; masses not palpable. HEART: First and second heart sounds are normal; no edema. LUNGS: Respiratory rate normal; clear to auscultation. ABDOMEN: Soft, nontender, liver spleen not palpable, no masses palpable. PSYCH: Alert and oriented x3; mood and affect normal. NEUROLOGICAL: Cranial nerves grossly intact; no facial asymmetry, power and sensation grossly intact. LYMPHATICS: No lymph nodes palpable in the axilla and neck MUSCULOSKELETAL: Left shoulder dressing, left arm in a sling INVESTIGATIONS, reviewed in the clinical context: No labs Assessment: -Left reversed total shoulder arthroplasty -Obesity BMI 32.8 -Hyperlipidemia -Essential hypertension -Primary osteoarthritis in multiple joints Plan: Home medications to be resumed. Care was discussed with the patient. Patient is ambulatory. Getting IV fluids. Pain control in place. Thank you Dr. Hanley Past Medical History Past Medical History: Hyperlipidemia, Hypertension Additional Past Medical History / Comment(s): RT ROTATOR CUFF TEAR. LEFT FOOT I NFECTION/BONE HAD IV ANTIBIOTICS FOR 40 DAYS January. History of Any Multi-Drug Resistant Organisms: None Reported Past Surgical History: Orthopedic Surgery Additional Past Surgical History / Comment(s): RIGHT REVERSE SHOULDER 2018. LT KNEE SCOPE; LT KNEE CARDOSO CYST EXC., shoulder, L foot Past Anesthesia/Blood Transfusion Reactions: No Reported Reaction Past Psychological History: No Psychological Hx Reported Additional Psychological History / Comment(s): and lives with his and family home. 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 Denies any alcohol use or recreational drug use. No tobacco use Smoking Status: Never smoker Past Alcohol Use History: None Reported Additional Past Alcohol Use History / Comment(s): NO ETOH SINCE 1987 Past Drug Use History: None Reported - Past Family History Father Family Medical History: Cancer Mother Family Medical History: Cancer Medications and Allergies Home Medications Medication Instructions Recorded Confirmed Type Atorvastatin [Lipitor] 20 mg PO HS 02/13/18 06/16/20 History Cholecalciferol (Vitamin D3) 2,000 unit PO HS 02/13/18 06/16/20 History [Vitamin D3] Naproxen Sodium [Aleve] 440 mg PO HS 02/13/18 06/16/20 History lisinopriL [Prinivil] 20 mg PO HS 02/13/18 06/16/20 History Doxycycline Hyclate 100 mg PO BID #10 tab 06/23/20 Rx HYDROcodone/APAP 7.5-325MG [[place] 1 - 2 each PO Q6HR PRN #56 tab 06/23/20 Rx 7.5-325] Allergies Allergy/AdvReac Type Severity Reaction Status Date / Time HAYFEVER Allergy SINUS SX Uncoded 06/16/20 16:00 Physical Exam Vitals: Vital Signs Temp Pulse Pulse Resp BP BP Pulse Ox 06/23/20 10:09 97.7 F 60 17 131/76 96 06/23/20 09:44 63 16 133/70 97 06/23/20 09:29 71 16 142/71 98 06/23/20 09:14 62 16 160/79 99 06/23/20 08:59 96.9 F L 76 12 175/83 100 06/23/20 06:50 50 L 16 99 06/23/20 05:56 98.0 F 55 L 18 158/84 97 Intake and Output 06/22/20 06/23/20 06/23/20 22:59 06:59 14:59 Intake Total 1000 950 Output Total 100 Balance 1000 850 Intake: IV 1000 950 Output: Estimated Blood Loss 100 Other: Weight 97.8 kg 97.8 kg
[2020-06-23] MEDS ORDERED: lisinopriL 20 MG TAB PO SCH (21:00)
[2020-06-23] MEDS ORDERED: CHOLECALCIFEROL 1,000 UNIT TAB PO SCH (21:00)
[2020-06-23] MEDS ORDERED: ATORVASTATIN 20 MG TAB PO SCH (21:00)
[2020-06-24] MEDS: LACTATED RINGERS 1,000 ML IV SCH ×2 (07:01→07:02)
[2020-06-24 07:57] LABS: Basophils % (A) 0 %; Eosinophils % (A) 0 %; HCT 32.3 % (39.0-53.0); HGB 10.9 gm/dL (13.0-17.5); Lymphocytes # (A) 1.2 k/uL (1.0-4.8); Lymphocytes % (A) 13 %; MCH 31.5 pg (25.0-35.0); MCHC 33.6 g/dL (31.0-37.0); MCV 93.7 fL (80.0-100.0); Mean Platelet Volume 9.2; Monocytes # (A) 0.6 k/uL (0-1.0); Monocytes % (A) 7 %; Neutrophils % (A) 78 %; Platelet Count 130 k/uL (150-450); RBC 3.45 m/uL (4.30-5.90); RDW 12.5 % (11.5-15.5)
[2020-06-24 08:41] VITALS: BP 111/70; PULSE 73; RESP 16; TEMP 98.3
[2020-06-24] MEDS ORDERED: HYDROcodone/APAP 10-325MG 1 EACH TAB PO PRN ×2 (12:09)
[2020-06-24] MEDS ORDERED: oxyCODONE ER 10 MG TAB.ER.12H PO SCH (12:15)
--- NOTE | 2020-06-24 13:02 | P.DS ---
Providers Date of admission: 06/23/20 05:31 Expected date of discharge: 06/24/20 Attending physician: Natanael Hanley Consults: 06/23/20 09:17 Consult Physician Routine Consulting Provider: All Salazar Consult Reason/Comments: post op medical management Do you want consulting provider notified?: Yes Primary care physician: Vj Allen - Discharge Diagnosis(es) (1) S/p reverse total shoulder arthroplasty Patient was admitted to the OR on 06/23/2020 to undergo a left total shoulder arthroplasty. He had failed conservative measures as an outpatient and desired to proceed with elective surgery after given informed consent. He underwent the above procedure which she tolerated well without complication. Postoperative hospital course has remained without complication. On day of discharge she is afebrile, vital signs stable, labs within acceptable ranges, tolerating by mouth meds and diet, voiding without difficulty, positive flatus, denies abdominal pain or calf pain, pain is controlled on oral pain medication and has no new complaints. Wound is benign, neurovascular status is intact, calf is soft and nontender, abdomen soft and nontender. Review of systems is negative for numbness, tingling, fever, chills, chest pain, shortness of breath, nausea, vomiting, dizziness, headaches, slurred speech or other. Current Visit: No Status: Acute Priority: Medium Procedures: LTSA Patient Condition at Discharge: Good Plan - Discharge Summary Discharge Rx Participant: No New Discharge Prescriptions: New Doxycycline Hyclate 100 mg PO BID #10 tab Ferrous Sulfate [Feosol] 325 mg PO DAILY #30 tab HYDROcodone/APAP 10-325MG [[place] 10-325] 1 tab PO Q4HR PRN #42 tab PRN Reason: Pain Continue Cholecalciferol (Vitamin D3) [Vitamin D3] 2,000 unit PO HS lisinopriL [Prinivil] 20 mg PO HS Atorvastatin [Lipitor] 20 mg PO HS Discontinued Naproxen Sodium [Aleve] 440 mg PO HS Discharge Medication List Atorvastatin [Lipitor] 20 mg PO HS 02/13/18 [History] Cholecalciferol (Vitamin D3) [Vitamin D3] 2,000 unit PO HS 02/13/18 [History] lisinopriL [Prinivil] 20 mg PO HS 02/13/18 [History] Doxycycline Hyclate 100 mg PO BID #10 tab 06/23/20 [Rx] Ferrous Sulfate [Feosol] 325 mg PO DAILY #30 tab 06/24/20 [Rx] HYDROcodone/APAP 10-325MG [[place]ita 10-325] 1 tab PO Q4HR PRN #42 tab 06/24/20 [Rx] Follow up Appointment(s)/Referral(s): Vj Allen DO [Primary Care Provider] - 10 Days (office will call you. Information given. ) Natanael Hanley MD [STAFF PHYSICIAN] - 07/05/20 9:50 am (Wear a mask and come alone if able. ) Patient Instructions/Handouts: Joint Replacement Surgery (DC) Activity/Diet/Wound Care/Special Instructions: maintain sling keep wound clean and dry non weight bearing left upper extremity take meds as directed F/U in office hold lisinopril for now; daily BP check ; resume when SBP above 130 Discharge Disposition: HOME SELF-CARE
--- NOTE | 2020-06-25 19:34 | P.PN ---
Progress Note - Text Progress Note Date: 06/24/20 - Chief Complaint Left shoulder pain Consultation: This is a very pleasant 70-year-old patient of Dr. Allen. Fundic stable medical conditions include hypertension, hyperlipidemia, osteoarthritis-multiple joints. Patient being bothered by left shoulder rotator cuff causing arthropathy. Patient underwent total arthroplasty reverse. Today-. Left shoulder present. Had been a bit little dizzy. Told the patient to hold off his antihypertensive check daily blood pressure at home. Resume when systolic blood pressure goes above 130.. Otherwise doing well Review of systems: Was done for constitutional, cardiovascular, GI, pulmonary. relevant finding as above Current medications reviewed in today's electronic records Physical examination: VITAL SIGNS: 98.3, 73, 16, 111/70, 94% room air GENERAL: Proper bed, comfortable. EYES: Pupils equal. Conjunctiva normal. HEENT: External appearance of nose and ears normal, oral cavity grossly normal. NECK: JVD not raised; masses not palpable. HEART: First and second heart sounds are normal; no edema. LUNGS: Respiratory rate normal; clear to auscultation. ABDOMEN: Soft, nontender, liver spleen not palpable, no masses palpable. PSYCH: Alert and oriented x3; mood and affect normal. MUSCULOSKELETAL: Left shoulder dressing, left arm in a sling INVESTIGATIONS, reviewed in the clinical context: Hemoglobin 10.9 Assessment: -Left reversed total shoulder arthroplasty -Obesity BMI 32.8 -Hyperlipidemia -Essential hypertension -Primary osteoarthritis in multiple joints -Suspect postprocedure acute blood loss anemia Plan: Lisinopril held. To be resumed as discussed with the patient. iron supplementat ion started. Thank you Dr. Hanley
== END 2020-06-24 14:20 | disposition home or self-care (01) | DRG 483 ==
LOC: 2ORMAIN 05:31 → EDSTATUS 07:00 → 4SSUR 09:15
PROVIDERS: ADMIT Orthopaedic Surgery Sports Medicine; ATTEND Orthopaedic Surgery Sports Medicine
PROC: 0RRK00Z Replacement of Left Shoulder Joint with Reverse Ball and Socket Synthetic Substitute, Open Approach (ICD-10-PCS; principal; 2020-06-23 07:00)
DX: M89.49 Other hypertrophic osteoarthropathy, multiple sites (principal); D62 Acute posthemorrhagic anemia; E66.9 Obesity, unspecified; I10 Essential (primary) hypertension; E78.5 Hyperlipidemia, unspecified; Z79.899 Other long term (current) drug therapy; Z68.32 Body mass index [BMI] 32.0-32.9, adult; Z98.890 Other specified postprocedural states; Z80.9 Family history of malignant neoplasm, unspecified; Z91.09 Other allergy status, other than to drugs and biological substances
CPT/HCPCS: 64415; 76942; 85025; 88300

== ENCOUNTER 2022-10-04 12:12 | Emergency (ER) | payer MEDICARE ==
--- NOTE | 2022-10-04 14:03 | ED ---
General Adult HPI - General Chief complaint: Abdominal Pain Stated complaint: Abd pain Time Seen by Provider: 10/04/22 13:39 Source: patient Mode of arrival: ambulatory Limitations: no limitations - History of Present Illness Initial comments: Dictation was produced using [employer] dictation software. please excuse any grammatical, word or spelling errors. Chief Complaint: 72-year-old male presents emergency department for 3 days of lo wer abdominal pain History of Present Illness: Patient is a 72-year-old male presents to the emerge ncy department for 3 days of lower abdominal pain. States that he had a flu shot prior to the onset of the symptoms. States that initially he had some diarrhea. States that the pain is very severe to his lower quadrant. Seems to be more on the left than the right. Denies any fever or chills or night sweats. No nausea or vomiting but has been having poor appetite. Patient denies history of diverticulitis or diverticulosis. Denies any urinary symptoms. The ROS documented in this emergency department record has been reviewed and confirmed by me. Those systems with pertinent positive or negative responses have been documented in the HPI. All other systems are other negative and/or no ncontributory. PHYSICAL EXAM: General Impression: Alert and oriented x3, not in acute distress HEENT: Normocephalic atraumatic, extra-ocular movements intact, pupils equal and reactive to light bilaterally, mucous membranes moist. Cardiovascular: Heart regular rate and rhythm Chest: Able to complete full sentences, no retractions, no tachypnea Abdomen: abdomen soft, palpatory tenderness to the bilateral lower abdominal areas worse on the left than on the right. Non-distended, no organomegaly Musculoskeletal: Pulses present and equal in all extremities, no peripheral edema Motor: no focal deficits noted Neurological: CN II-XII grossly intact, no focal motor or sensory deficits noted Skin: Intact with no visualized rashes Psych: Normal affect and mood ED course: 72-year-old male presents to the emergency department for 3 days of abdominal pain. Vital signs upon arrival are within acceptable limits. Physical presentation suspicious for diverticulitis. Blood work and CT ordered. Laboratory evaluation obtained. CBC, metabolic panel, urinalysis negative. Computed tomography scan of the abdomen and pelvis shows acute uncomplicated sigmoid diverticulitis, cholelithiasis and enlarged prostate. Patient observed in emergency department for 3 hours and 30 minutes. Reevaluated at bedside at 3:50 PM found to be stable medical condition. Disposition options were discussed. Patient is agreeable for discharge. Return precautions discussed. - Related Data Home Medications Medication Instructions Recorded Confirmed Atorvastatin [Lipitor] 20 mg PO HS 02/13/18 06/16/20 Cholecalciferol (Vitamin D3) 2,000 unit PO HS 02/13/18 06/16/20 [Vitamin D3] lisinopriL [Prinivil] 20 mg PO HS 02/13/18 06/16/20 Previous Rx's Medication Instructions Recorded Doxycycline Hyclate 100 mg PO BID #10 tab 06/23/20 Ferrous Sulfate [Feosol] 325 mg PO DAILY #30 tab 06/24/20 HYDROcodone/APAP 10-325MG [Watts 1 tab PO Q4HR PRN #42 tab 06/24/20 10-325] Amoxic-Pot Clav 875-125Mg 1 tab PO Q8H 5 Days #15 tab 10/04/22 [Augmentin 875-125] Allergies Allergy/AdvReac Type Severity Reaction Status Date / Time HAYFEVER Allergy SINUS SX Uncoded 10/04/22 12:51 Review of Systems ROS Statement: Those systems with pertinent positive or pertinent negative responses have been documented in the HPI. ROS Other: All systems not noted in ROS Statement are negative. Past Medical History Past Medical History: Hyperlipidemia, Hypertension Additional Past Medical History / Comment(s): RT ROTATOR CUFF TEAR. LEFT FOOT INFECTION/BONE HAD IV ANTIBIOTICS FOR 40 DAYS January. History of Any Multi-Drug Resistant Organisms: None Reported Past Surgical History: Orthopedic Surgery Additional Past Surgical History / Comment(s): RIGHT REVERSE SHOULDER 2018. LT KNEE SCOPE; LT KNEE CRADOSO CYST EXC., shoulder, L foot Past Anesthesia/Blood Transfusion Reactions: No Reported Reaction Past Psychological History: No Psychological Hx Reported Smoking Status: Never smoker Past Alcohol Use History: None Reported Past Drug Use History: None Reported - Past Family History Father Family Medical History: Cancer Mother Family Medical History: Cancer General Exam Limitations: no limitations Course Vital Signs 10/04/22 12:49 Temperature 98 F Pulse Rate 58 L Respiratory 20 Rate Blood Pressure 144/78 O2 Sat by Pulse 99 Oximetry Medical Decision Making - Lab Data Result diagrams: 10/04/22 14:29 10/04/22 14:29 Lab Results 10/04/22 10/04/2210/04/22 Range/Units 14:15 14:29 14:29 WBC 8.1 (3.8-10.6) k/uL RBC 4.80 (4.30-5.90) m/uL Hgb 15.8 (13.0-17.5) gm/dL Hct 44.3 (39.0-53.0) % MCV 92.3 (80.0-100.0) fL MCH 32.9 (25.0-35.0) pg MCHC 35.6 (31.0-37.0) g/dL RDW 12.2 (11.5-15.5) % Plt Count 152 (150-450) k/uL MPV 9.3 Neutrophils % 68 % Lymphocytes % 21 % Monocytes % 7 % Eosinophils % 1 % Basophils % 1 % Neutrophils # 5.5 (1.3-7.7) k/uL Lymphocytes # 1.7 (1.0-4.8) k/uL Monocytes # 0.6 (0-1.0) k/uL Eosinophils # 0.1 (0-0.7) k/uL Basophils # 0.1 (0-0.2) k/uL Sodium 140 (137-145) mmol/L Potassium 4.8 (3.5-5.1) mmol/L Chloride 108 H (98-107) mmol/L Carbon Dioxide 26 (22-30) mmol/L Anion Gap 6 mmol/L BUN 19 (9-20) mg/dL Creatinine 0.90 (0.66-1.25) mg/dL Est GFR (CKD-EPI)AfAm >90 (>60 ml/min/1.73 sqM) Est GFR (CKD-EPI)NonAf 84 (>60 ml/min/1.73 sqM) Glucose 102 H (74-99) mg/dL Calcium 9.2 (8.4-10.2) mg/dL Total Bilirubin 0.8 (0.2-1.3) mg/dL AST 31 (17-59) U/L ALT 26 (4-49) U/L Alkaline Phosphatase 68 (38-126) U/L Total Protein 7.4 (6.3-8.2) g/dL Albumin 4.4 (3.5-5.0) g/dL Urine Color Yellow Urine Appearance Clear (Clear) Urine pH 5.0 (5.0-8.0) Ur Specific [place] 1.018 (1.001-1.035) Urine Protein Negative (Negative) Urine Glucose (UA) Negative (Negative) Urine Ketones Negative (Negative) Urine Blood Negative (Negative) Urine Nitrite Negative (Negative) Urine Bilirubin Negative (Negative) Urine Urobilinogen <2.0 (<2.0) mg/dL Ur Leukocyte Esterase Negative (Negative) Disposition Clinical Impression: Diverticulitis Disposition: HOME SELF-CARE Condition: Good Instructions (If sedation given, give patient instructions): Diverticulitis Diet (ED), Diverticulitis (DC) Prescriptions: Amoxic-Pot Clav 875-125Mg [Augmentin 875-125] 1 tab PO Q8H 5 Days #15 tab Is patient prescribed a controlled substance at d/c from ED?: No Referrals: Vj Allen DO [Primary Care Provider] - 1-2 days Time of Disposition: 15:54
[2022-10-04 14:33] LABS: Appearance,Urine Clear (Clear); Bilirubin,Urine Negative (Negative); Blood,Urine Negative (Negative); Color,Urine Yellow; Glucose,Urine (UA) Negative (Negative); Ketones,Urine Negative (Negative); Leukocyte Esterase,Urine Negative (Negative); Nitrite,Urine Negative (Negative); Protein,Urine Negative (Negative); Specific Gravity,Urine 1.018 (1.001-1.035); Urobilinogen,Urine <2.0 mg/dL (<2.0)
[2022-10-04 14:41] LABS: Basophils # (A) 0.1 k/uL (0-0.2); Basophils % (A) 1 %; Eosinophils # (A) 0.1 k/uL (0-0.7); Eosinophils % (A) 1 %; HCT 44.3 % (39.0-53.0); HGB 15.8 gm/dL (13.0-17.5); Lymphocytes # (A) 1.7 k/uL (1.0-4.8); Lymphocytes % (A) 21 %; MCH 32.9 pg (25.0-35.0); MCHC 35.6 g/dL (31.0-37.0); MCV 92.3 fL (80.0-100.0); Mean Platelet Volume 9.3; Monocytes # (A) 0.6 k/uL (0-1.0); Monocytes % (A) 7 %; Neutrophils # (A) 5.5 k/uL (1.3-7.7); Neutrophils % (A) 68 %; Platelet Count 152 k/uL (150-450); RDW 12.2 % (11.5-15.5); WBC 8.1 k/uL (3.8-10.6)
[2022-10-04 14:53] LABS: ALT 26 U/L (4-49); AST 31 U/L (17-59); African American GFR (CKD) >90 (>60 ml/min/1.73 sqM); Albumin 4.4 g/dL (3.5-5.0); Alkaline Phosphatase 68 U/L (38-126); Anion Gap 6 mmol/L; Blood Urea Nitrogen 19 mg/dL (9-20); Calcium 9.2 mg/dL (8.4-10.2); Carbon Dioxide 26 mmol/L (22-30); Chloride 108 mmol/L (98-107); Glucose 102 mg/dL (74-99); Non-African American GFR(CKD) 84 (>60 ml/min/1.73 sqM); Potassium 4.8 mmol/L (3.5-5.1); Sodium 140 mmol/L (137-145); Total Bilirubin 0.8 mg/dL (0.2-1.3); Total Protein 7.4 g/dL (6.3-8.2)
--- NOTE | 2022-10-04 15:39 | CT ---
EXAMINATION TYPE: CT abdomen pelvis w con CT DLP: 1754 mGycm, Automated exposure control for dose reduction was used. DATE OF EXAM: 10/04/2022 3:30 PM COMPARISON: None. CLINICAL INDICATION:Male, 72 years old with history of abdominal pain. TECHNIQUE: Standard CT of the abdomen and pelvis following the administration of 100 cc of Isovue 3 00 IV contrast material. Coronal and sagittal reformats were performed. FINDINGS: LOWER CHEST: Visualized lungs are clear. Mild cardiomegaly. ABDOMEN LIVER: Unremarkable GALLBLADDER AND BILE DUCTS: Cholelithiasis without inflammatory changes. No biliary duct dilatation. PANCREAS: Unremarkable. SPLEEN: Unremarkable. ADRENAL GLANDS: Unremarkable. KIDNEYS AND URETERS: No evidence of hydronephrosis or renal calculus. The kidneys enhance symmetrical ly. Right lower pole cyst measuring 1.7 cm. Left exophytic superior pole cyst measuring 1.1 cm. PELVIS BLADDER: Incompletely distended but grossly unremarkable. REPRODUCTIVE: Prostate is enlarged in size measuring 5.2 cm in transverse dimension. ABDOMEN & PELVIS STOMACH AND BOWEL: Stomach and duodenum are unremarkable. The appendix is within normal limits. Acute sigmoid diverticulitis with surrounding inflammatory changes. No pericolonic abscess or fistula. (Se denise 201, image 59). No evidence of bowel obstruction. PERITONEUM: No evidence of pneumoperitoneum or free fluid. VASCULATURE: Mild atherosclerotic calcifications are present throughout the abdominal aorta and its b ranches. No evidence of aortic aneurysm. MUSCULOSKELETAL: No acute osseous abnormalities. No aggressive osseous lesions. Mild degenerative cheryl nges visualized spine. LYMPH NODES: No gross evidence for lymphadenopathy. SOFT TISSUE/ABDOMINAL WALL: Unremarkable IMPRESSION: 1. Acute uncomplicated sigmoid diverticulitis. 2. Cholelithiasis. 3. Prostatomegaly.
[2022-10-04 16:14] VITALS: BP 131/79; PULSE 57; RESP 18; TEMP 98.1
== END 2022-10-04 16:14 | disposition home or self-care (01) ==
LOC: EC 12:12
DX: K57.92 Diverticulitis of intestine, part unspecified, without perforation or abscess without bleeding (principal); E78.5 Hyperlipidemia, unspecified; I10 Essential (primary) hypertension; Z88.8 Allergy status to other drugs, medicaments and biological substances
CPT/HCPCS: 36415; 80053; 85025; 81003; 74177; 99284; Q9967

== ENCOUNTER → 2023-05-09 | Outpatient (CLI) | payer MEDICARE ==
[2023-05-09 11:15] LABS: HCT 48.9 % (39.0-53.0); HGB 16.6 gm/dL (13.0-17.5); MCH 32.1 pg (25.0-35.0); MCHC 33.9 g/dL (31.0-37.0); MCV 94.7 fL (80.0-100.0); Mean Platelet Volume 8.8; Platelet Count 167 k/uL (150-450); RBC 5.17 m/uL (4.30-5.90); RDW 12.6 % (11.5-15.5); WBC 5.4 k/uL (3.8-10.6)
[2023-05-09 11:34] LABS: INR 0.9 (<1.2); Partial Thromboplastin Time 23.9 sec (22.0-30.0); Prothrombin Time 9.8 sec (9.0-12.0)
[2023-05-09 11:36] LABS: ALT 35 U/L (4-49); AST 38 U/L (17-59); African American GFR (CKD) 81 (>60 ml/min/1.73 sqM); Albumin 4.4 g/dL (3.5-5.0); Alkaline Phosphatase 61 U/L (38-126); Anion Gap 8 mmol/L; Blood Urea Nitrogen 27 mg/dL (9-20); Calcium 9.6 mg/dL (8.4-10.2); Carbon Dioxide 28 mmol/L (22-30); Chloride 105 mmol/L (98-107); Glucose 100 mg/dL (74-99); Non-African American GFR(CKD) 70 (>60 ml/min/1.73 sqM); Potassium 5.5 mmol/L (3.5-5.1); Sodium 141 mmol/L (137-145); Total Bilirubin 0.8 mg/dL (0.2-1.3); Total Protein 7.3 g/dL (6.3-8.2)
[2023-05-09 17:36] LABS: Appearance,Urine Clear (Clear); Bilirubin,Urine Negative (Negative); Blood,Urine Negative (Negative); Color,Urine Yellow (Yellow); Ketones,Urine Negative (Negative); Nitrite,Urine Negative (Negative); Urobilinogen,Urine 0.2 E.U./DL
== END | disposition home or self-care (01) ==
LOC: LABPAT 09:07
PROVIDERS: ATTEND Orthopaedic Surgery Sports Medicine
DX: Z01.812 Encounter for preprocedural laboratory examination (principal); M17.12 Unilateral primary osteoarthritis, left knee
CPT/HCPCS: 36415; 80053; 81003; 85027; 85610; 85730; 87070

== ENCOUNTER 2023-05-23 05:34 | Day surgery (SDC) | payer MEDICARE ==
[2023-05-17 11:36] VITALS: BMI 36.5
[~2023-05-23 05:34] MED LIST changes: -ACETAMINOPHEN TAB 500 MG TAB PO ONE; +ACETAMINOPHEN TAB 500 MG TAB PO PRN; -GABAPENTIN 300 MG CAP PO ONE; +GABAPENTIN 300 MG CAP PO PRN; -MELOXICAM 7.5 MG TAB PO ONE; +MELOXICAM 7.5 MG TAB PO PRN; -ONDANSETRON 4 MG/2 ML VIAL IVP ONE; +ONDANSETRON 4 MG/2 ML VIAL IVP PRN; +TRANEXAMIC 1,000 MG/100ML-NACL 1,000 MG in SALINE 1 100ML.BAG IVPB PRN; -TRANEXAMIC ACID 1,000 MG in SODIUM CHLORIDE 0.9% 100 ML IVPB ONE
[2023-05-23] MEDS ORDERED: LIDOCAINE 1% (10MG/ML) FOR IV START INTRADERMA PRN (05:52)
[2023-05-23] MEDS ORDERED: ONDANSETRON 4 MG/2 ML VIAL IVP ONE (05:52)
[2023-05-23] MEDS ORDERED: MIDAZOLAM 2 MG/2 ML VIAL IV PRN (05:52)
[2023-05-23] MEDS ORDERED: HYDROmorphone 0.5 MG/0.5 ML SYRINGE IVP PRN ×3 (05:52→09:26)
[2023-05-23] MEDS ORDERED: DEXAMETHASONE SOD PHOSPHATE 4 MG/ML 1 ML VIAL IV ONE (05:52)
[2023-05-23] MEDS: LACTATED RINGERS 1,000 ML IV SCH ×3 (06:15→10:49)
[2023-05-23] MEDS ORDERED: ePHEDrine 50 MG/ML 1 ML VIAL ONE (07:02)
[2023-05-23] MEDS ORDERED: TRANEXAMIC 1,000 MG/100ML-NACL PREMIX BAG ONE (07:02)
[2023-05-23] MEDS ORDERED: PROPOFOL 10 MG/ML 20 ML VIAL IV ONE (07:02)
[2023-05-23] MEDS ORDERED: fentaNYL (PF) 50 MCG/ML 2 ML AMP ONE (07:02)
[2023-05-23] MEDS ORDERED: KETAMINE 10 MG/ML 20 ML VIAL ONE (07:02)
[2023-05-23] MEDS ORDERED: DEXAMETHASONE SOD PHOSPHATE 4 MG/ML 1 ML VIAL ONE (07:02)
[2023-05-23] MEDS ORDERED: MIDAZOLAM 2 MG/2 ML VIAL ONE (07:02)
[2023-05-23] MEDS ORDERED: HYDROmorphone (PF) 1 MG/ML ONE (07:02)
[2023-05-23] MEDS ORDERED: ROPIVACAINE 5 MG/ML 30 ML VIAL ONE (07:02)
[2023-05-23] MEDS: ceFAZolin 3,000 MG in SODIUM CHLORIDE 0.9% IRRIGATIO 3,000 ML IRRIGATION ONE ×2 (08:00→10:49)
[2023-05-23] MEDS ORDERED: NA PHOS,M-B/NA PHOS,DI-BA 133 ML ENEMA RECTAL PRN (09:26)
[2023-05-23] MEDS ORDERED: ACETAMINOPHEN TAB 325 MG TAB PO PRN (09:26)
[2023-05-23] MEDS ORDERED: bisacodyL 10 MG SUPP RECTAL PRN (09:26)
[2023-05-23] MEDS ORDERED: MAGNESIUM HYDROXIDE 2,400 MG/30 ML CUP PO PRN (09:26)
[2023-05-23] MEDS ORDERED: NALOXONE 0.4 MG/ML 1 ML VIAL IV PRN (09:26)
[2023-05-23] MEDS ORDERED: ONDANSETRON 4 MG/2 ML VIAL IVP PRN (09:26)
[2023-05-23] MEDS ORDERED: traMADol 50 MG TAB PO PRN (09:26)
[2023-05-23] MEDS ORDERED: HYDROmorphone 0.5 MG/0.5 ML SYRINGE IVP ONE ×3 (09:27→09:56)
[2023-05-23] MEDS ORDERED: HYDROcodone/APAP 7.5-325MG 1 EACH TAB PO PRN (09:29)
[2023-05-23] MEDS ORDERED: ROPIVACAINE 1,100 MG, SODIUM CHLORIDE 0.9% 500 ML 330 ML, EMPTY PAIN BALL 1 EACH MISCELLANE PRN ×2 (09:32)
--- NOTE | 2023-05-23 10:07 | XR ---
EXAMINATION TYPE: XR knee limited LT DATE OF EXAM: 05/23/2023 10:02 AM INDICATION: Patient age:Male; 73 years old; Reason for study: Evaluation for Postop abnormality and alignment; PHH. COMPARISON: None TECHNIQUE: The Left knee(s) was examined in AP and crosstable lateral projections. FINDINGS: Postsurgical changes from total left knee arthroplasty with distal femoral and proximal t ibial components. Hardware appears intact with appropriate alignment. There is associated soft tissue edema and gas. No acute fracture or dislocation. Vascular sclerosis. IMPRESSION: Postsurgical changes from total left knee arthroplasty. Hardware appears intact with appropriate alig nment.
--- NOTE | 2023-05-23 10:26 | OP ---
OPERATIVE REPORT DATE OF SERVICE : 05/23/2023 INGREDIENT SCALER: ANUJ Saab. PREOPERATIVE DIAGNOSIS: Left knee osteoarthrosis. POSTOPERATIVE DIAGNOSIS: Left knee osteoarthrosis. PROCEDURE PERFORMED: Left total knee arthroplasty. ANESTHESIA: Spinal sedation. ESTIMATED BLOOD LOSS: 100 mL. TOURNIQUET TIME: 56 minutes at 250 mmHg. COMPLICATIONS: None apparent. DRAINS: None. DISPOSITION: Postanesthesia care unit. INDICATIONS: Darrel is a 73-year-old male with longstanding history of left knee pain. History and physical examination are consistent with advanced left knee osteoarthrosis. He has been through significant nonoperative management at this point. Further treatment options were discussed. He decided to go forward with a left total knee arthroplasty. Risks of procedure were discussed in detail. These risks included, but were not limited to, risk of infection, nerve damage, bleeding, pain, and a small risk of deep vein thrombosis which could lead to fatal pulmonary embolism. There is also a small risk of loosening of the implant which could require revision operation. The patient understands these risks. All of his questions were answered to his satisfaction. An appropriate informed consent was obtained. DESCRIPTION OF PROCEDURE: The patient was identified in the preoperative holding area. Surgical site was marked by both the patient and myself. He was given 2 g of Ancef IV for prophylactic purposes. He was then transported to the operative suite. He was placed supine on the operating room table. A spinal anesthetic was then administered and dosed per the Anesthesia Department without apparent complication. Examination under anesthesia was then performed. The patient was 2 to 3 degrees shy of full extension. He had 100 degrees of flexion. Medial collateral ligament, lateral collateral ligament, and posterior cruciate ligaments were stable. Tourniquet was then placed high in the left upper thigh, well-padded in preparation for surgery. The patient's left lower extremity was then prepped and draped in usual sterile fashion. Standard surgical pause was undertaken to ensure that we were operating the correct site and that appropriate preoperative antibiotics were given. All staff in the room were in agreement and we proceeded. The outlines of the patella were marked with a surgical pen. A planned 12 cm vertical incision centered over the patella was marked with a surgical pen. The leg was then exsanguinated with Esmarch dressing. The knee was then flexed and tourniquet was inflated to 250 mmHg. Total tourniquet time for the procedure was 56 minutes. Incision was then made with a 10-blade scalpel. Dissection was carried down sharply overlying fascia. Great care was taken to minimize the skin flaps. The knee was then exposed using a standard medial parapatellar approach. A small cuff of quadriceps tendon was then left for suturing. He was in a small bit of varus preoperatively. A standard medial release was then made. Superficial medial collateral ligament was dissected off the bone around to the posterior aspect of the proximal tibia. The medial meniscus was then excised as well. Lateral meniscus was also released anteriorly. Leg was then externally rotated. The patella was everted. The knee was flexed. Retractors were then placed to protect the collateral ligaments. I then proceeded to remove the infrapatellar fat pad. This was excised sharply tangentially with fibers of the patellar tendon. I then proceeded to remove the peripheral osteophytes. This done with a rongeur. I then proceeded with the distal femoral resection. He did have near full extension. A planned 9 mm resection was then done. The femoral canal was entered in the midline the femur approximately 10 mm anterior to the origin of the posterior cruciate ligament. The blake was then advanced down the center of the femur and placed intramedullary. Based on the preoperative radiographs, the angle between the anatomic and mechanical axis of the femur was approximately 4 to 5 degrees. The valgus angle of the distal femoral cutting guide was then set at 4 degrees for the left knee. Distal femoral cutting guide was then advanced over the intramedullary blake. This was seated firmly against the femur. I then, as mentioned, planned to take 9 mm off the distal femur. The cutting block was then secured down to the femur with pins. Jig was then removed. Distal femoral cut was made through the slot of the block. The pins were then removed. The distal femoral cutting block was removed. The accuracy of the distal femoral cuts was checked with 2 flat bars. I then proceeded with femoral sizing. Posterior referencing sizing guide was held firmly against the resected distal surface of the femur. The posterior condyles were resting on the posterior plane of the guide. The sizing stylus was then placed on the anterior femur. The size was measured as a size 9. I then assessed for femoral rotation. Planned for 3 degrees of external rotation. Three degrees of external rotation was placed onto the jig. These holes were then marked. I then confirmed the rotation by 3 separate methods. This was done using the epicondylar axis as well as [place] line and posterior referencing. It was deemed that the external rotation was proper. I then moved forward with placing of the femoral cutting block. This was placed over the previously placed pin holes. The [place]h wing was then placed on the anterior slots to ensure that we would not notch the anterior femur with the anterior femoral cut. I then proceeded with the anterior femoral cut. This was flush with the anterior cortex of the femur. The posterior cuts were then made followed by the anterior chamfer cut and the posterior chamfer cut. The cutting block was removed. Throughout the resection, the collateral ligaments were protected with retractors. I then placed a trial size 9 femur. Fit very nicely mediolateral and fit flush with the distal end of the femur. The drill hole was then made. I then proceeded with tibial cut, planned for cruciate-retaining knee. The guide was placed and set for varus valgus and for slope. I set for approximately 2 mm resection from the medial tibial plateau which was the lower side. I was happy with the alignment and the amount of resection. The cutting block was then pinned to the proximal tibia. The alignment blake was removed. The proximal tibia was resected with a reciprocating saw. Again, this was done with retractors protecting the collateral ligaments as well as the posterior cruciate ligament. I then proceeded to evaluate the flexion and extension gaps. A 10 mm block was then placed. The flexion and extension gaps were equal. I then proceeded with resection of posterior osteophytes. He had minimal posterior osteophytes. This was done using curved osteotome. This resected the posterior osteophytes and posterior capsular stripping was done off the posterior aspect of the femur at this time. The osteophytes were then removed. I then proceeded with resection of the patella. The thickness of the patella was measured using the caliper. The thickness was 24 mm. Thickness of the anticipated patellar dome was taken into account. Resection was then performed and confirmed to be equal in 4 quadrants using a caliper. Approximately 14 mm of bone remained after resection. A 32 x 8.5 mm standard patellar trial was then placed. The holes were drilled and the trial was then placed. I then proceeded with sizing tibial plate. A size F tibial plate fit very nicely. I then placed the trial femur of the tibial tray and the patellar button. A 10 mm trial tibial insert was also placed. The components fit very nicely. He had full extension and flexion. The extension and flexion gaps were equal and stable to both varus and valgus stress. The patella tracked appropriately. The tibial tray rotation was then marked a Bovie. This was externally rotated properly. I then proceeded with tibial preparation. I first drilled the femoral holes and removed the femoral component. The tibial tray was then set for proper external rotation as well as medial lateral placement onto the tibia. It was then pinned into place. I then proceeded with punching the keel. I then decided to proceed with cementing of all our components. The knee was thoroughly irrigated with sterile saline solution via pulse lavage. The lateral genicular artery was identified and cauterized. All blood was removed from the bone of the tibia, femur, and patella with pulsed lavage. I then proceeded with cementing. Two packs of antibiotic bone cement prepared on the back table by the instructor adjunct surgical technician. I then proceeded with cementing of the tibia first. The cement was impacted into the keel as well as deeply seated into the bone. A second coat of cement was then placed. The tibia was then impacted into place. Excess cement was removed with [place]'s and Joker's. I then proceeded with cementing the femoral component. The femoral component was also cemented using standard technique. Excess cement was removed. A 10-mm trial insert was then placed in the knee. It was brought into full extension with a constant axial load placed until the cement had hardened. The patellar component was then cemented. This was held firmly with a compressive device until the cement had dried. When the cement had dried, the knee was taken out of extension. All excess cement was removed from around the prosthesis. I then trialed the knee with 10 mm insert. Flexion extension gaps were appropriate. The knee was stable. It came to full extension. I decided to go forward with a 10-mm Medial Congruent cross-linked cruciate- retaining tibial insert. Polyethylene was then placed on tibial tray and locked in place. The knee was then reduced. Knee was again further irrigated with sterile saline solution with antibiotic added. The tourniquet was then deflated. Total tourniquet time for the procedure was 56 minutes at 250 mmHg. Final components were Aadm Persona size 9 cruciate-retaining femoral component, size F tibial tray, a 10 mm medial congruent cruciate-retaining polyethylene insert, and a 32 x 8.5 mm patella. I then proceeded with closure. Again, the knee was thoroughly irrigated. The quadriceps tendon and the medial retinaculum were reapproximated with #2 Ethibond suture. The extensor mechanism was then closed with a running #2 Quill suture. Subcutaneous tissues were closed with 2-0 Vicryl interrupted suture. The skin was closed with a running 3-0 Quill suture. Dermabond was then applied to the incision. All sponge and needle counts were deemed correct prior to closure. The patient tolerated procedure without apparent complication. He was transferred to recovery room in stable condition. MMODL / IJN: [id number] /
[2023-05-23] MEDS: HYDROcodone/APAP 7.5-325MG 1 EACH TAB PO PRN ×3 (10:57→23:59)
[2023-05-23] MEDS: HYDROmorphone 0.5 MG/0.5 ML SYRINGE IVP PRN (14:11)
--- NOTE | 2023-05-23 16:13 | P.CONS ---
History of Present Illness - Reason for Consult Consult date: 05/23/23 Medical management, status post left total knee arthroplasty - History of Present Illness This is a 73-year-old male who was admitted under orthopedic services electively for left total knee arthroplasty and has just been brought to the unit by postop doing relatively well. at the bedside providing much of history of lung with patient. Patient reports he follows with Dr. Cely guzman in the outpatient setting with a past medical history of hyperlipidemia, hypertension, osteoarthritis, left leg varicose veins. Patient denies alcohol or drug use and was never a smoker. Patient was evaluated in the outpatient setting and despite conservative measures continued to have pain opting for surgical intervention. Patient did have presurgical clearance with primary care provider. Would recommend a.m. labs and will resume appropriate home medications. Review Of Systems: Constitutional: No fever, no chills, no night sweats. No weight change. No weakness, fatigue or lethargy. No daytime sleepiness. EENT: No headache. No blurred vision or double vision, no loss of vision. No loss of Hearing, no ringing in the ears, no dizziness. No nasal drainage or congestion. No epistaxis. No sore throat. Lungs: No shortness of breath, cough, no sputum production. No wheezing. Cardiovascular: No chest pain, no lower extremity edema. No palpitations. No paroxysmal nocturnal dyspnea. No orthopnea. No lightheadedness or dizziness. No syncopal episodes. Abdominal: No abdominal pain. No nausea, vomiting. No diarrhea. No constipation. No bloody or tarry stools.. No loss of appetite. Genitourinary: No dysuria, increased frequency, urgency. No urinary retention. Musculoskeletal: No myalgias. No muscle weakness, no gait dysfunction, no frequent falls. No back pain. No neck pain. Integumentary: No wounds, no lesions. No rash or pruritus. No unusual bruising. No change in hair or nails. Neurologic: No aphasia. No facial droop. No change in mentation. No head injury. No headache. No paralysis. No paresthesia. Psychiatric: No depression. No anxiety. No mood swings. Endocrine: No abnormal blood sugars. No weight change. No excessive sweating or thirst. No cold intolerance. PHYSICAL EXAMINATION: GENERAL: The patient is alert and oriented x4, Well developed, well nourished. Obese HEENT: Pupils are round and equally reacting to light. EOMI. no scleral icterus. No conjunctival pallor. Normocephalic, atraumatic. No pharyngeal erythema. No thyromegaly. CARDIOVASCULAR: S1 and S2 muffled PULMONARY: diminished breath sounds bilaterally with no wheezing or rhonchi noted. ABDOMEN: soft. Nontender on exam. obese. non-distended, normoactive bowel sounds. No palpable organomegaly. MUSCULOSKELETAL: No joint swelling or deformity. EXTREMITIES: No cyanosis, clubbing, or pedal edema. Left knee postop surgical site is dry and intact currently NEUROLOGICAL: Gross neurological examination did not reveal any focal deficits. Diffuse weakness SKIN: No rashes. Assessment: Status post left total knee arthroplasty History of osteoarthritis Hypertension Hyperlipidemia Obesity with a BMI of 36.4 GI prophylaxis DVT prophylaxis Full code Plan: Recommend to continue with current medications and management per orthopedic services. Patient is postop day 0 just brought to the unit and would recommend incentive spirometer and encouraged to use at least 10 times every hour. Home medications have been reviewed and resumed as appropriate. Patient takes hypertension medications at night and discussed with the nurse about monitoring for postoperative hypotension Patient to be evaluated by physical therapy in the morning Recommend a.m. labs including CBC and BMP Pain management and DVT prophylaxis per orthopedics. Patient is currently maintained on two 81 mg of baby aspirin daily We will continue to follow with orthopedics during hospitalization. Thank you kindly for this consultation. The impression and plan of care has been dictated by Diane Oakley, nurse practitioner as directed. Dr. Lewis MD I have performed a history and examination and MDM of this patient, discussed the same with the dictator, and agree with the dictator's assessment and plan as written ,documented as a scribe. Based on total visit time, I have performed more than 50% of the visit. Any additional findings or plans will be noted. Past Medical History Past Medical History: Hyperlipidemia, Hypertension, Osteoarthritis (OA) Additional Past Medical History / Comment(s): Left leg varicose veins. History of Any Multi-Drug Resistant Organisms: None Reported Past Surgical History: Orthopedic Surgery Additional Past Surgical History / Comment(s): BILATERAL REVERSE SHOULDER, LEFT KNEE SCOPE, LEFT KNEE CARDOSO CYST EXCISION, LEFT FOOT SURGERY. Past Anesthesia/Blood Transfusion Reactions: No Reported Reaction Past Psychological History: No Psychological Hx Reported Additional Psychological History / Comment(s): and lives with his and family home. 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 Denies any alcohol use or recreational drug use. No tobacco use Smoking Status: Never smoker Past Alcohol Use History: None Reported Additional Past Alcohol Use History / Comment(s): NO ALCOHOL SINCE 1987. Past Drug Use History: None Reported - Past Family History Father Family Medical History: Cancer Mother Family Medical History: Cancer Sister(s) Family Medical History: Cancer Medications and Allergies Home Medications Medication Instructions Recorded Confirmed Type Atorvastatin [Lipitor] 20 mg PO HS 02/13/18 05/23/23 History Cholecalciferol (Vitamin D3) 2,000 unit PO HS 02/13/18 05/23/23 History [Vitamin D3] Melatonin 5 mg PO HS 05/17/23 05/23/23 History Naproxen Sodium [Aleve] 220 mg PO DAILY 05/17/23 05/23/23 History lisinopriL [Prinivil] 10 mg PO HS 05/17/23 05/23/23 History Allergies Allergy/AdvReac Type Severity Reaction Status Date / Time HAYFEVER Allergy SINUS SX Uncoded 05/23/23 06:01 Physical Exam Vitals: Vital Signs Temp Pulse Resp BP Pulse Ox 05/23/23 10:15 54 L 14 150/70 97 05/23/23 10:02 148/71 05/23/23 10:00 52 L 14 94 L 05/23/23 09:51 97.8 F 56 L 17 139/82 95 05/23/23 09:45 51 L 14 138/65 94 L 05/23/23 09:30 51 L 14 144/71 99 05/23/23 09:18 96.8 F L 51 L 12 149/71 99 05/23/23 06:49 55 L 16 157/76 98 05/23/23 06:41 52 L 16 195/93 98 05/23/23 05:57 97.4 F L 63 16 179/85 97 Intake and Output 05/22/23 05/23/23 05/23/23 22:59 06:59 14:59 Intake Total 200 1051 Output Total 100 Balance 200 951 Intake: IV 200 1051 Output: Estimated Blood Loss 100 Other: Weight 108.6 kg 108.6 kg
--- NOTE | 2023-05-23 18:47 | P.ANPRN ---
Procedure Note - Anesthesia - Nerve Block Performed Left Adductor Canal Infusion Time Out Performed: Yes Date of Procedure: 05/23/23 Procedure Start Time: 06:41 Procedure Stop Time: 06:49 Location of Patient: PreOp Indication: Acute Post-Operative Pain, Requested by Surgeon Sedation Type: Sedate with meaningful contact maintained Preparation: Sterile Prep, Sterile Dressing Position: Supine Catheter: Indwelling Needle Types: On-Q Needle Gauge: 21 Ultrasound used to visualize needle placement: Yes Ultrasound used to observe medication spread: Yes Blood Aspirated: No Pain Paresthesia on Injection Noted: No Resistance on Injection: Normal Image Stored and Saved: Yes Events: Uneventful and Well Tolerated (Ropivacaine 0.5% 20 mL plus dexamethasone 4 mg)
--- NOTE | 2023-05-23 18:49 | P.ANPRN ---
Procedure Note - Anesthesia - Nerve Block Performed Left iPack Single Time Out Performed: Yes Date of Procedure: 05/23/23 Procedure Start Time: 06:50 Procedure Stop Time: :52 Location of Patient: PreOp Indication: Acute Post-Operative Pain, Requested by Surgeon Sedation Type: Sedate with meaningful contact maintained Preparation: Sterile Prep Position: Supine Needle Types: Pajunk Needle Gauge: 21 Ultrasound used to visualize needle placement: Yes Ultrasound used to observe medication spread: Yes Blood Aspirated: No Pain Paresthesia on Injection Noted: No Resistance on Injection: Normal Image Stored and Saved: Yes Events: Uneventful and Well Tolerated (Mobility and 0.5% 20 mL plus dexamethasone 4 mg)
[2023-05-23] MEDS: ASPIRIN 81 MG PO SCH (21:38)
[2023-05-23] MEDS: ATORVASTATIN 20 MG TAB PO SCH (21:39)
[2023-05-23] MEDS: SENNOSIDES-DOCUSATE SODIUM 1 EACH TAB PO SCH (21:39)
[2023-05-23] MEDS: CHOLECALCIFEROL 25 MCG (1000 IU) TABLET PO SCH (21:39)
[2023-05-23] MEDS: MELATONIN 5 MG TABLET PO SCH (21:40)
[2023-05-23] MEDS: lisinopriL 10 MG TAB PO SCH (21:41)
[2023-05-24] MEDS: LACTATED RINGERS 1,000 ML IV SCH ×3 (00:55→15:14)
[2023-05-24] MEDS: HYDROcodone/APAP 7.5-325MG 1 EACH TAB PO PRN ×2 (04:54→12:06)
[2023-05-24] MEDS: PANTOPRAZOLE 40 MG TABLET PO SCH (06:47)
--- NOTE | 2023-05-24 07:01 | P.PN ---
Progress Note - Text 05/24/23 642am 73-year-old male status post total knee replacement by Dr. Hanley. Patient has an On-Q pump for postop pain control with the solution running at 8 mL an hour with a VAS of 4-5. Pain score does go up on ambulation. Patient is received oral pain med and seems to working for him. Plan to continue On-Q pump infusion
[2023-05-24] MEDS: HYDROmorphone 0.5 MG/0.5 ML SYRINGE IVP PRN ×2 (08:25→11:54)
[2023-05-24] MEDS: ASPIRIN 81 MG PO SCH ×2 (08:25→20:18)
[2023-05-24 11:15] LABS: Basophils # (A) 0.01 X 10*3/uL (0.00-0.10); Basophils % (A) 0.1 %; Eosinophils # (A) 0 X 10*3/uL (0.04-0.35); Eosinophils % (A) 0 %; HCT 38.2 % (39.6-50.0); HGB 13.1 d/dL (12.0-15.0); Lymphocytes # (A) 0.86 X 10*3/uL (0.90-5.00); Lymphocytes % (A) 6.3 %; MCH 32.1 pg (27.0-32.0); MCHC 34.3 d/dL (32.0-37.0); MCV 93.6 FL (80.0-97.0); Mean Platelet Volume 11.6 FL (9.5-12.2); Monocytes # (A) 1.14 X 10*3/uL (0.20-1.00); Monocytes % (A) 8.4 %; NRBC Per 100 WBC 0 X 10*3/uL (0.00-0.01); Neutrophils # (A) 11.59 X 10*3/uL (1.80-7.70); Neutrophils % (A) 84.8 %; Platelet Count 150 X 10*3/uL (140-440); RBC 4.08 X 10*6/uL (4.40-5.60); RDW 12.1 % (11.5-14.5); WBC 13.65 X 10*3/uL (4.50-10.00)
[2023-05-24 11:20] LABS: BUN/Creat Ratio 22.75 Ratio (12.00-20.00); Blood Urea Nitrogen 27.3 mg/dL (9.0-27.0); Calcium 9.2 mg/dL (8.7-10.3); Carbon Dioxide 21.2 mmol/L (21.6-31.8); Chloride 106 mmol/L (96-109); Glucose 120 mg/dL (70-110); Potassium 4.7 mmol/L (3.5-5.5); Sodium 138 mmol/L (135-145)
[2023-05-24] MEDS: MULTIVITAMINS, THERA 1 EACH TAB PO SCH (11:56)
[2023-05-24] MEDS ORDERED: oxyCODONE-APAP 7.5-325MG 1 EACH TAB PO PRN (12:22)
[2023-05-24] MEDS ORDERED: CYCLOBENZAPRINE 5 MG TAB PO PRN (12:25)
--- NOTE | 2023-05-24 13:06 | P.PN ---
Subjective Progress Note Date: 05/24/23 Principal diagnosis: Left TKA Patient is seen at bedside this morning. He is postop day #1 from left total knee arthroplasty. He has pain at the surgical site as expected but denies any new complaints. He denies numbness, tingling or calf pain. Review of systems is negative for fever, chills, chest pain, shortness of breath or other Objective - Vital Signs Vital signs: Vital Signs Temp 98.7 F 05/24/23 07:55 Pulse 77 05/24/23 07:55 Resp 18 05/24/23 07:55 BP 136/62 05/24/23 07:55 Pulse Ox 96 05/24/23 07:55 FiO2 Intake & Output 05/23/23 05/24/23 05/24/23 18:59 06:59 18:59 Intake Total 1051 Output Total 100 Balance 951 Weight 108.6 kg Intake: IV 1051 Output: Estimated Blood Loss 100 Other: # Voids 1 2 2 - Exam Inspection reveals a benign surgical wound. There is no active bleeding or drainage. Neurovascular status is intact throughout the lower extremity with motor and sensation fully intact. Calf is soft and nontender. 2+ dorsalis pedis pulse and less than 2 second cap refill is present. - Constitutional General appearance: Present: no acute distress - Labs CBC & Chem 7: 05/24/23 06:09 05/24/23 06:09 Labs: Abnormal Lab Results - Last 24 Hours (Table) 05/24/23 05/24/23 Range/Units 06:09 06:09 WBC 13.65 H (4.50-10.00) X 10*3/uL RBC 4.08 L (4.40-5.60) X 10*6/uL Hct 38.2 L (39.6-50.0) % MCH 32.1 H (27.0-32.0) pg Neutrophils # 11.59 H (1.80-7.70) X 10*3/uL Lymphocytes # 0.86 L (0.90-5.00) X 10*3/uL Monocytes # 1.14 H (0.20-1.00) X 10*3/uL Eosinophils # 0 L (0.04-0.35) X 10*3/uL Carbon Dioxide 21.2 L (21.6-31.8) mmol/L BUN 27.3 H (9.0-27.0) mg/dL BUN/Creatinine Ratio 22.75 H (12.00-20.00) Ratio Glucose 120 H (70-110) mg/dL Assessment and Plan (1) Osteoarthritis of left knee Narrative/Plan: He will continue with routine postop orthopedic protocol including pain management, wound care, PT, DVT prophylaxis and medical management. Pain meds adjusted. Expect that he will transfer to home tomorrow Current Visit: Yes Status: Acute Priority: Medium Code(s): M17.12 - UNILATERAL PRIMARY OSTEOARTHRITIS, LEFT KNEE SNOMED Code(s): 478036331199157 Time with Patient: Less than 30
[2023-05-24] MEDS: oxyCODONE ER 10 MG TAB.ER.12H PO SCH ×2 (13:24→20:19)
[2023-05-24] MEDS: oxyCODONE-APAP 7.5-325MG 1 EACH TAB PO PRN ×2 (18:23→23:30)
[2023-05-24] MEDS: CHOLECALCIFEROL 25 MCG (1000 IU) TABLET PO SCH (20:19)
[2023-05-24] MEDS: MELATONIN 5 MG TABLET PO SCH (20:19)
[2023-05-24] MEDS: lisinopriL 10 MG TAB PO SCH (20:20)
[2023-05-24] MEDS: SENNOSIDES-DOCUSATE SODIUM 1 EACH TAB PO SCH (20:20)
[2023-05-24] MEDS: ATORVASTATIN 20 MG TAB PO SCH (20:20)
--- NOTE | 2023-05-24 20:54 | P.PN ---
Subjective Progress Note Date: 05/24/23 - Reason for Consult Consult date: 05/23/23 Medical management, status post left total knee arthroplasty - History of Present Illness This is a 73-year-old male who was admitted under orthopedic services electively for left total knee arthroplasty and has just been brought to the unit by postop doing relatively well. at the bedside providing much of history of lung with patient. Patient reports he follows with Dr. Cely guzman in the outpatient setting with a past medical history of hyperlipidemia, hypertension, osteoarthritis, left leg varicose veins. Patient denies alcohol or drug use and was never a smoker. Patient was evaluated in the outpatient setting and despite conservative measures continued to have pain opting for surgical intervention. Patient did have presurgical clearance with primary care provider. Would recommend a.m. labs and will resume appropriate home medications. 05/24/2023 Patient is seen and evaluated in follow-up today postop day #1 and currently sitting up reporting he just worked with physical therapy. Patient is reporting severe pain that is uncontrolled and has required IV narcotics. Patient concerned with going home and this much pain and also within epidural subcutaneous pump that he reports is not helping. Patient reports sharp intense pain and stinging of the left knee. Patient otherwise denies any chest pain or shortness of breath. No reports of nausea or vomiting and tolerating diet. Patient reports to voiding and has passed gas. Patient is afebrile and WBC mildly elevated, likely reactive as there is no signs of infection. BMP within normal limits and creatinine is currently 1.2. Home medications reviewed and resumed as appropriate. Review of systems: Constitutional: No reports of fatigue, fever, or chills Cardiovascular: No reports of chest pain or palpitations Respiratory: No reports of shortness of breath or cough GI: No reports of nausea, vomiting, or diarrhea : No reports of dysuria or retention Neurovascular: No reports of weakness , reports severe left knee pain with tingling and sharp sensations All medications have been reviewed PHYSICAL EXAMINATION: GENERAL: The patient is alert and oriented x4, Well developed, well nourished. Obese HEENT: Pupils are round and equally reacting to light. EOMI. no scleral icterus. No conjunctival pallor. Normocephalic, atraumatic. No pharyngeal erythema. No thyromegaly. CARDIOVASCULAR: S1 and S2 muffled PULMONARY: diminished breath sounds bilaterally with no wheezing or rhonchi note d. ABDOMEN: soft. Nontender on exam. obese. non-distended, normoactive bowel sounds. No palpable organomegaly. MUSCULOSKELETAL: No joint swelling or deformity. EXTREMITIES: No cyanosis, clubbing, or pedal edema. Left knee postop surgical site is dry and intact currently NEUROLOGICAL: Gross neurological examination did not reveal any focal deficits. Diffuse weakness SKIN: No rashes. Assessment: Status post left total knee arthroplasty, postop day 1 Leukocytosis, most likely reactive as there is no signs of infection at this time History of osteoarthritis Hypertension Hyperlipidemia Obesity with a BMI of 36.4 GI prophylaxis DVT prophylaxis Full code Plan: Recommend to continue with current medications and management per orthopedic services. Patient is postop day 1 and has been up and working with physical therapy and patient is reporting severe 10/10 pain that is uncontrolled with IV Dilaudid as well as [place]. Pain management per orthopedics and medications are being adjusted. Encourage the patient to continue using incentive spirometer at least 10 times every hour. Home medications have been reviewed and resumed as appropriate. Patient takes hypertension medications at night and discussed with the nurse about monitoring for postoperative hypotension Labs reviewed and within normal limits, WBC mildly elevated, most likely reactive as there is no signs of infection, patient is afebrile and patient denies any shortness of breath or pain or burning with urination. Pain management and DVT prophylaxis per orthopedics. Patient is currently maintained on two 81 mg of baby aspirin daily. Orthopedics monitoring for pain management overnight with possible discharge in 24 hours. Patient is medically stable for discharge We will continue to follow with orthopedics during hospitalization. Thank you kindly for this consultation. The impression and plan of care has been dictated by Diane Oakley, nurse practitioner as directed. Dr. Lewis MD I have performed a history and examination and MDM of this patient, discussed the same with the dictator, and agree with the dictator's assessment and plan as written ,documented as a scribe. Based on total visit time, I have performed more than 50% of the visit. Any additional findings or plans will be noted. Objective - Vital Signs Vital signs: Vital Signs Temp 98.1 F 05/24/23 18:25 Pulse 85 05/24/23 18:25 Resp 18 05/24/23 18:25 BP 163/73 05/24/23 18:25 Pulse Ox 96 05/24/23 18:25 FiO2 Intake & Output 05/24/23 05/24/23 05/25/23 06:59 18:59 06:59 Other: # Voids 2 3 - Labs CBC & Chem 7: 05/24/23 06:09 05/24/23 06:09 Labs: Abnormal Lab Results - Last 24 Hours (Table) 05/24/23 05/24/23 Range/Units 06:09 06:09 WBC 13.65 H (4.50-10.00) X 10*3/uL RBC 4.08 L (4.40-5.60) X 10*6/uL Hct 38.2 L (39.6-50.0) % MCH 32.1 H (27.0-32.0) pg Neutrophils # 11.59 H (1.80-7.70) X 10*3/uL Lymphocytes # 0.86 L (0.90-5.00) X 10*3/uL Monocytes # 1.14 H (0.20-1.00) X 10*3/uL Eosinophils # 0 L (0.04-0.35) X 10*3/uL Carbon Dioxide 21.2 L (21.6-31.8) mmol/L BUN 27.3 H (9.0-27.0) mg/dL BUN/Creatinine Ratio 22.75 H (12.00-20.00) Ratio Glucose 120 H (70-110) mg/dL
[2023-05-25] MEDS: LACTATED RINGERS 1,000 ML IV SCH ×2 (03:56→05:53)
[2023-05-25] MEDS: oxyCODONE-APAP 7.5-325MG 1 EACH TAB PO PRN ×2 (05:50→14:43)
[2023-05-25] MEDS: PANTOPRAZOLE 40 MG TABLET PO SCH (05:51)
[2023-05-25 08:05] VITALS: RESP 16
[2023-05-25] MEDS: MULTIVITAMINS, THERA 1 EACH TAB PO SCH (09:47)
--- NOTE | 2023-05-25 09:47 | P.DS ---
Providers Expected date of discharge: 05/25/23 Attending physician: Natanael Hanley Consults: 05/23/23 09:26 Consult Physician Routine Consulting Provider: Camila Arriaga Consult Reason/Comments: post op medical management Do you want consulting provider notified?: Yes Primary care physician: Vj Allen - Discharge Diagnosis(es) (1) Osteoarthritis of left knee Current Visit: Yes Status: Acute Priority: Medium (2) Status post total left knee replacement Current Visit: Yes Status: Acute Hospital Course: This is a 73-year-old male with known history of degenerative arthritis of the left knee. The patient presented for evaluation as an outpatient. After discussion and consideration patient elects to proceed with total knee arthroplasty. The patient is seen preoperatively by Dr. Hanley and medically cleared for surgery by their primary care physician. Patient is admitted to [facility] on 05/23/2023 for total knee arthroplasty. The procedure is performed without complication or sequelae. The patient is doing well postoperatively. Labs and vital signs are stable on day of discharge. On day of discharge patient's knee incision is healing well. There is minimal erythema. There is no drainage noted at this time. There is minimal soft tissue swelling to the knee. Patient has full foot and ankle motion without difficulty or pain. Calf is soft and nontender to palpation. Neurovascular status to the left lower extremity is intact. Patient is discharged home in good condition. Please see med rec for accurate list of home medications. Plan - Discharge Summary Discharge Rx Participant: Yes New Discharge Prescriptions: New Docusate [Colace] 100 mg PO BID #60 capsule Ondansetron [Zofran] 4 mg PO Q8HR PRN #21 tab PRN Reason: Nausea oxyCODONE-APAP 7.5-325MG [Percocet 7.5-325 mg] 1 tab PO Q4HR PRN #42 tab PRN Reason: Pain Pantoprazole [Protonix] 40 mg PO AC-BRKFST #30 tab Aspirin [Adult Low Dose Aspirin EC] 81 mg PO BID #60 tab Multivitamins, Thera [Multivitamin (formulary)] 1 each PO DAILY@1200 #30 tab Continue Cholecalciferol (Vitamin D3) [Vitamin D3] 2,000 unit PO HS Atorvastatin [Lipitor] 20 mg PO HS Melatonin 5 mg PO HS lisinopriL [Prinivil] 10 mg PO HS Discontinued Naproxen Sodium [Aleve] 220 mg PO DAILY Discharge Medication List Atorvastatin [Lipitor] 20 mg PO HS 02/13/18 [History] Cholecalciferol (Vitamin D3) [Vitamin D3] 2,000 unit PO HS 02/13/18 [History] Melatonin 5 mg PO HS 05/17/23 [History] lisinopriL [Prinivil] 10 mg PO HS 05/17/23 [History] Aspirin [Adult Low Dose Aspirin EC] 81 mg PO BID #60 tab 05/24/23 [Rx] Docusate [Colace] 100 mg PO BID #60 capsule 05/24/23 [Rx] Ondansetron [Zofran] 4 mg PO Q8HR PRN #21 tab 05/24/23 [Rx] oxyCODONE-APAP 7.5-325MG [Percocet 7.5-325 mg] 1 tab PO Q4HR PRN #42 tab 05/24/23 [Rx] Multivitamins, Thera [Multivitamin (formulary)] 1 each PO DAILY@1200 #30 tab 05/25/23 [Rx] Pantoprazole [Protonix] 40 mg PO AC-BRKFST #30 tab 05/25/23 [Rx] Follow up Appointment(s)/Referral(s): [facility] [NON[facility]] - 1-2 Days ([facility] will call you to schedule your in home physical therapy visits. ) Natanael Hanley MD [STAFF PHYSICIAN] - 1 Week Activity/Diet/Wound Care/Special Instructions: Weight bear as tolerated May shower after 3 days if no bleeding Keep wound clean and dry Take meds as directed F/U with Dr. Hanley in office Discharge Disposition: HOME WITH HOME HEALTH SERVICES
[2023-05-25] MEDS: ASPIRIN 81 MG PO SCH (09:48)
[2023-05-25] MEDS: oxyCODONE ER 10 MG TAB.ER.12H PO SCH (09:48)
--- NOTE | 2023-05-25 13:04 | P.PN ---
Subjective Progress Note Date: 05/25/23 This is a 73-year-old male who was admitted under orthopedic services electively for left total knee arthroplasty and has just been brought to the unit by postop doing relatively well. at the bedside providing much of history of lung with patient. Patient reports he follows with Dr. Cely guzman in the outpatient setting with a past medical history of hyperlipidemia, hypertension, osteoarthritis, left leg varicose veins. Patient denies alcohol or drug use and was never a smoker. Patient was evaluated in the outpatient setting and despite conservative measures continued to have pain opting for surgical intervention. Patient did have presurgical clearance with primary care provider. Would recommend a.m. labs and will resume appropriate home medications. 05/24/2023 Patient is seen and evaluated in follow-up today postop day #1 and currently sitting up reporting he just worked with physical therapy. Patient is reporting severe pain that is uncontrolled and has required IV narcotics. Patient concerned with going home and this much pain and also within epidural subcutaneous pump that he reports is not helping. Patient reports sharp intense pain and stinging of the left knee. Patient otherwise denies any chest pain or shortness of breath. No reports of nausea or vomiting and tolerating diet. Patient reports to voiding and has passed gas. Patient is afebrile and WBC mildly elevated, likely reactive as there is no signs of infection. BMP within normal limits and creatinine is currently 1.2. Home medications reviewed and resumed as appropriate. 05/25/2023 Patient is evaluated today in follow up postoperative day #2 total left knee. There is some swelling and numbness to the knee patient reports he cannot feel his knee when touching it. Patient does have pedal post tib and popliteal palpable pulse but has some pitting edema. Will order doppler of the left lower extremity prior to discharge. Patient had not had a BM and was retaining around 300 mls of urine. Will add flomax and re evaluate. Potential D/C home today. Review of systems: Constitutional: No reports of fatigue, fever, or chills Cardiovascular: No reports of chest pain or palpitations Respiratory: No reports of shortness of breath or cough GI: No reports of nausea, vomiting, or diarrhea : No reports of dysuria or retention Neurovascular: No reports of weakness , reports numbness to the left knee cannot feel when touching. All medications have been reviewed PHYSICAL EXAMINATION: GENERAL: The patient is alert and oriented x4, Well developed, well nourished. Obese HEENT: Pupils are round and equally reacting to light. EOMI. no scleral icterus. No conjunctival pallor. Normocephalic, atraumatic. No pharyngeal erythema. No thyromegaly. CARDIOVASCULAR: S1 and S2 muffled PULMONARY: diminished breath sounds bilaterally with no wheezing or rhonchi noted. ABDOMEN: soft. Nontender on exam. obese. non-distended, normoactive bowel sounds. No palpable organomegaly. MUSCULOSKELETAL: No joint swelling or deformity. EXTREMITIES: No cyanosis, clubbing, or pedal edema. Left knee postop surgical site is dry and intact currently there is some swelling and pitting edema there are positive post tib pedal and popliteal pulse. NEUROLOGICAL: Gross neurological examination did not reveal any focal deficits. Diffuse weakness SKIN: No rashes. Assessment: Status post left total knee arthroplasty, postop day 2 Urinary retention likely related to constipation Lower extremity swelling and increased pain Leukocytosis, most likely reactive as there is no signs of infection at this time History of osteoarthritis Hypertension Hyperlipidemia Obesity with a BMI of 36.4 GI prophylaxis DVT prophylaxis Full code Plan: Recommend to continue with current medications and management per orthopedic services. Patient is postop day 2 and has been up and working with physical therapy Pain is improved today patient is report numbness to the left lower extremity and there is increased swelling A venous doppler will be ordered. Encourage the patient to continue using incentive spirometer at least 10 times every hour. Labs reviewed and within normal limits, WBC mildly elevated, most likely reactive as there is no signs of infection, patient is afebrile and patient denies any shortness of breath or pain or burning with urination. Pain management and DVT prophylaxis per orthopedics. Patient is currently maintained on two 81 mg of baby aspirin daily. Orthopedics monitoring for pain management overnight with possible discharge in 24 hours. Follow up bladder scan and post void residual patient will be discharged on flomax. Possible DC today pending venous doppler. We will continue to follow with orthopedics during hospitalization. Thank you kindly for this consultation. The impression and plan of care has been dictated by Georgiana De Leon Nurse Practitioner as directed. Dr. Lewis MD I have performed a history and physical examination and medical decision making of this patient, discussed the same with the dictator, and agree with the dictators assessment and plan as written, documented as a scribe. Based on total visit time, I have performed more than 50% of this visit. Objective - Vital Signs Vital signs: Vital Signs Temp 99.5 F 05/25/23 08:00 Pulse 78 05/25/23 08:00 Resp 16 05/25/23 08:00 BP 168/90 05/25/23 08:00 Pulse Ox 97 05/25/23 08:00 FiO2 Intake & Output 05/24/23 05/25/23 05/25/23 18:59 06:59 18:59 Intake Total 400 Balance 400 Intake: Intake, IV Titration 400 Amount Lactated Ringers 1,000 ml 400 @ 100 mls/hr IV .Q10H HECTOR Rx#:[id number] Other: # Voids 3 10 1 # Bowel Movements 1 - Labs CBC & Chem 7: 05/24/23 06:09 05/24/23 06:09 Assessment and Plan Time with Patient: Less than 30
[2023-05-25 14:03] VITALS: BP 165/94; PULSE 50; TEMP 98.8
--- NOTE | 2023-05-25 14:24 | US ---
EXAMINATION TYPE: US venous doppler duplex LE LT DATE OF EXAM: 05/25/2023 2:17 PM COMPARISON: NONE CLINICAL INDICATION: Male, 73 years old with history of swelling post total knee; edema post op knee surgery. SIDE PERFORMED: Left TECHNIQUE: The lower extremity deep venous system is examined utilizing real time linear array sonog rudy with graded compression, doppler sonography and color-flow sonography. VESSELS IMAGED: Common Femoral Vein Deep Femoral Vein Greater Saphenous Vein * Femoral Vein Popliteal Vein Small Saphenous Vein * Proximal Calf Veins (* superficial vessels) The deep venous system of the left lower extremity from the common femoral vein to the proximal calf veins is patent and compressible with augmentable flow throughout and there is no evidence of DVT. IMPRESSION: No evidence of left lower extremity DVT from the femoral vein to the proximal calf veins.
== END 2023-05-25 18:15 | disposition home health service (06) ==
LOC: OR 05:34 → 4SSUR 09:18 → OR 05-25 18:15
PROVIDERS: ATTEND Orthopaedic Surgery Sports Medicine
DX: M17.12 Unilateral primary osteoarthritis, left knee (principal); G89.18 Other acute postprocedural pain; I10 Essential (primary) hypertension; E78.5 Hyperlipidemia, unspecified; E66.9 Obesity, unspecified; Z68.36 Body mass index [BMI] 36.0-36.9, adult; Z98.890 Other specified postprocedural states; Z80.8 Family history of malignant neoplasm of other organs or systems; Z79.899 Other long term (current) drug therapy; Z91.048 Other nonmedicinal substance allergy status
CPT/HCPCS: 97116; 97162; 64999; 64448; 80048; 85025; 73560; 93971; 27447; C1776; C1713; C1751; J2250; J1100; J0690 ×3; J2405; J2795; J1170 ×2

== ENCOUNTER → 2023-12-30 | Outpatient (CLI) | payer MEDICARE ==
--- NOTE | 2023-12-30 11:19 | FL ---
EXAMINATION TYPE: FL barium swallow DATE OF EXAM: 12/30/2023 10:36 AM COMPARISON: None CLINICAL INDICATION:Male, 73 years old with history of R13.12 DYSPHAGIA; PHH, TECHNIQUE: The procedure was explained and patient history elicited. All patient questions were ans wered prior to start of procedure. Multiple spot fluoroscopic images of the esophagus were obtained a fter the oral ingestion of effervescent crystals and liquid barium as the contrast agent. Fluoroscopic time: 29 sec Fluoroscopic images: 0 Radiographs taken: 22 DAP: 1874 cGycm2 FINDINGS: The esophagus demonstrates normal primary and secondary peristalsis. The esophageal mucosa is smooth without evidence of focal stricture, ulceration, or abnormal outpouching. No gastroesophageal reflu x disease was identified. Tertiary contractions are present throughout the esophagus. IMPRESSION: 1. Esophageal dysmotility. 2. No evidence for mass.
== END | disposition home or self-care (01) ==
LOC: RADUSWWP 09:41
PROVIDERS: ATTEND Family Medicine
DX: R13.12 Dysphagia, oropharyngeal phase (principal); K22.4 Dyskinesia of esophagus
CPT/HCPCS: 74220

== ENCOUNTER → 2024-01-06 | Outpatient (CLI) | payer MEDICARE ==
--- NOTE | 2024-01-06 21:49 | US ---
EXAMINATION TYPE: US st tissue neck DATE OF EXAM: 01/06/2024 COMPARISON: None CLINICAL INDICATION: Male, 73 years old with history of R13.12 DYSPHAGIA, OROPHARYNGEAL PHASE; Patien t states bilateral neck pain/burning sensation at end of day and often feels likes something is stuck . No palpable. TECHNIQUE: Multiple sonographic images taken of both sides of the neck. FINDINGS AND IMPRESSION: Rn Quality notes: Bilateral neck scanned. No discrete mass or lesions identified at time of scan.
== END | disposition home or self-care (01) ==
LOC: RADUSWWP 12:09
PROVIDERS: ATTEND Family Medicine
DX: R13.12 Dysphagia, oropharyngeal phase (principal); M54.2 Cervicalgia
CPT/HCPCS: 76536

== ENCOUNTER → 2024-08-27 | Outpatient (CLI) | payer MEDICARE ==
--- NOTE | 2024-08-27 12:32 | CT ---
EXAMINATION TYPE: CT lumbar spine wo con DATE OF EXAM: 08/27/2024 12:26 PM COMPARISON: None HISTORY: Chronic lower back pain CT DLP: 913 mGycm Automated exposure control for dose reduction was used. Unenhanced CT of the lumbar spine was performed. Bone and soft tissue window settings are submitted as well as coronal and sagittal reconstructions. Findings: Lumbar vertebral segments are normal in height and alignment and there is no fracture or subluxation. There is mild anterior spondylolisthesis. There is mild disc space narrowing at the L2-3 and L4-5 lev el. There is no large lumbar disc herniation. Lack of contrast limits evaluation for spinal stenosis but at least moderate to possibly severe spina l stenosis is suspected from L1 through L5. There is mild bony neural foraminal encroachment at the L 4-5 level on the right. IMPRESSION: 1. No lumbar spine fracture or malalignment. 2. Mild degenerative disc disease as described above. 3. No large disc herniation. 4. Moderate to possibly severe spinal stenosis is suspected from L1 through L5. MRI of the lumbar sp ine would be useful for further evaluation and to confirm this finding. [facility], , 08/27/2024 12:30 PM
== END | disposition home or self-care (01) ==
LOC: RADCTMAIN 12:04
PROVIDERS: ATTEND Orthopaedic Surgery
DX: M51.16 Intervertebral disc disorders with radiculopathy, lumbar region (principal); M62.81 Muscle weakness (generalized); G89.29 Other chronic pain
CPT/HCPCS: 72131

== ENCOUNTER → 2024-11-19 | Outpatient (CLI) | payer MEDICARE | END | disposition home or self-care (01) | LOC: LABPAT 07:45 | PROVIDERS: ATTEND Orthopaedic Surgery | DX: Z01.818 Encounter for other preprocedural examination (principal); M48.062 Spinal stenosis, lumbar region with neurogenic claudication; M47.26 Other spondylosis with radiculopathy, lumbar region; Z22.322 Carrier or suspected carrier of Methicillin resistant Staphylococcus aureus | CPT/HCPCS: 36415; 86850; 86900; 86901; 87070 ==

== ENCOUNTER 2024-11-26 07:54 | Day surgery (SDC) | payer MEDICARE ==
--- NOTE | 2024-11-25 15:15 | P.HPOR ---
History of Present Illness H&P Date: 11/20/24 .D:Date: 11/20/24 : 02:05pm .T:Title: *PRE-OP H1 [facility] [address] [place] [id number]| PROVIDER: ABHINAV KAT DO CLINICAL SUMMARY: *Mr. Devlin is a 74-year-old male presenting with severe low back pain (9/10 on VAS scale), bilateral lower extremity weakness, and radiculopathy, with left side worse than right. MRI and CT imaging demonstrate severe central and bilateral foraminal stenosis at L2-4 due to facet arthropathy, ligamentous hypertrophy, and Baastrup's disease. Physical examination reveals bilateral lower extremity weakness (4/5 strength in multiple muscle groups), positive straight leg raise testing, and L2-4 dermatomal deficits. Conservative management including physical therapy, medications (including Lyrica and Celebrex), and epidural/transforaminal injections has failed to provide relief. His symptoms have progressively worsened, affecting his mobility with multiple near-fall episodes. Due to the progressive neurological decline and failed conservative measures, Dr. Kat has recommended a minimally invasive L2-4 laminoforaminotomy for decompression. DEMOGRAPHICS: Age: 74 year Height: 5'8" Weight: 248 lbs BP:/ BMI: 37.71 kg/m2 Occupation: * CC: *LOW BACK PAIN, LE WEAKNESS, LE RADICULOPATHY VAS: *9/10 HISTORY: Mr. Devlin presents to the office today, 11/20/24, for *preoperative evaluation for his planned L2-4 LAMINOFORAMINOTOMY AND DECOMPRESSION for his LE pain, neurogenic claudication and radicuopathic sx. He has had no improvement in his sx, infact they have gotten worse and he is ready for surgery. He states no new sx. No trauma. He states he has gotten all clearances, done his labs, and is going to do his MRSA swab today. He deneis any other issues at this time. * Patient denies any f/c/sob/cp, perineal numbness or tingling, bowel, or bladder incontinence/retention. * The patients past social, medical, family, surgical history, as well as review of systems, have been reviewed. Please refer to the History and Physical form that has been scanned into our electronic medical record system. 16 points review of systems completed and as stated in HPI, all other systems reviewed are negative. PAST TREATMENTS: PAST IMAGING: YES, CT scan -MRI, XR TRAUMA RELATED: NO - WORK RELATED: NO - PT IN LAST 6 MONTHS: YES -Continued until he could no longer tolerate, made worse PHYSICIAN DIRECTED HOME EXERCISE PROGRAM: YES -Some minimal relief of back pain, but no neurological relief ACTIVITY MODIFICAITON: YES -Limited BLTPP 20 lbs ADLs limited secondary to Dx and issues. MEDICATIONS: YES, Lyrica and Celebrex -Motrin, tylenol OTC meds failed to provide relief -Trial sof steroids, MR and others failed ALTERNATIVE INTERVENTIONS (CHIROPRACTIC, ACCUPUNCTURE, MASSAGE, RICE): YES -RICE, Massage minimal relief BRACING: NO - INJECTIONS (LB, TF, RFA): YES -LB and TF in the past wihtout relief. MEDICAL HISTORY: Past Medical History: REVIEWED STATED IN CHART Past Surgical History: REVIEWED STATED IN CHART Social History: REVIEWED STATED IN CHART SMOKING: Never smoker ETOH: None SUBSTANCES: None Family History: REVIEWED STATED IN CHART P1 Current Medications: Rx: Aleve PM Ref: 0 Rx: atorvastatin 20 mg tablet Ref: 0 Instructions: take 1 tablet (20 mg) by oral route once daily Rx: lisinopriL 10 mg tablet Ref: 0 Instructions: take 1 tablet (10 mg) by oral route once daily Rx: celecoxib 200 mg capsule Ref: 0 Instructions: take 1 capsule (200 mg) by oral route BID Rx: pregabalin 100 mg capsule Ref: 0 Instructions: take 1 capsule (100 mg) by oral route BID P1 PHYSICAL EXAM: General: AOX3, NAD, Well hydrate, well nourished HEENT: No lumps or masses Extremities: No color changes, no pooling INTEGUMENT: Appearance: Normal color and turgor Surgical Incisions: NA Hairy Patches: ABSENT Dorsal Skin Dimples: Normal [employer] spots: ABSENT PALPATION: TTP Midline: NO Paracervical: NO Parathoracic: NO Paralumbar: YES SIJ TESTING: TESTED * [place] Finger: - * FABER4: - * Compression:- * Distraction: - * Thigh thrust: - * Hip thrust: - POSTURAL BALANCE: Coronal: BALANCED Sagittal: BALANCED Shoulder height: LEVEL Pelvic Girdle: LEVEL ROM AND APPEARANCE: Neck: UNRESTRICTED Lumbar: RESTRICTED with pain Shoulders: Symmetrical Hips: Symmetrical Knees: Symmetrical Hands: Symmetrical Feet: Symmetrical VASCULAR STATUS: PALPABLE PULSES B/L UE AND LE 2/4 RAD/ULNAR/DP/PT Edema: NONE NEUROLOGICAL EXAMINATION: Mental Status: Awake, alert, fully oriented with normal attention, concentration, and memory. Fluent appropriate speech. CRANIAL NERVES: I: Olfactory not assessed. II: Visual acuity normal, no visual field deficit noted with confrontation. III, IV: Normal pupillary reflexes & intact extraocular movements without nystagmus. V, : Intact symmetrical facial sensation. VII: Intact symmetrical facial motor movement: Hearing intact. IX, X: Intact gag, swallow, & normal voice. XI: Sternocleidomastoid, trapezius function intact. XII: Tongue midline with normal movements. TENSIONING: * L'HERMITTE'S SIG:NEG SPURLUNG'S SIGN:NEG CUBITAL TUNNEL COMPRESSION:NEG TINELS AT WRIST:NEG STRAIGH LEG RAISE:TENSIONING RIGHT/LEFT CONTRALATERAL STRAIGHT LEG RAISE: NEG MOTOR EXAM (0-5/5, NT) Muscle appearance: Symmetrical, without signs of atrophy or dystrophy UPPER EXTREMITY RIGHT LEFT Shoulder Abduction 5 5 Biceps 5 5 Triceps 5 5 Wrist Extension 5 5 Hand Intrinsics 5 5 Exploration Geologist 5 5 LOWER EXTREMITY RIGHT LEFT Hip Flexion 4 4 Knee Extension 4 4 Knee Flexion 5 4 Dorsiflexion 5 4 Plantarflexion 5 4 EHL 5 4 FHL 5 4 REFLEXES (0-4/2, NT): RIGHT LEFT Bicep 2 2 Brachioradialis 2 2 Triceps 2 2 Patellar 2 1 Achilles 2 1 PATHOLOGICAL REFLEXES: RIGHT LEFT JOVEL'S ABSENT ABSENT CLONUS ABSENT ABSENT BABINSKI ABSENT ABSENT RECTAL TONE: INTACT/NT SENSATION (0-4, NT): Sensation intact to LT and Pain * C5-T1 distribution BUE * L2-S2 distribution BLE *Exceptions below* DERMATOMAL DEFICIT/RADICULAR PATTERN: L2-4 left > right GAIT AND FUNCTIONAL EVALUATION: AMBULATORY AID NONE ROMBERG'S TEST INTACT HAND AND FINGER DEXTERITY INTACT YES DYSDIADOCHOKINESIA EXAM NEG B/L YES TOE/HEEL WALK INTACT WITH GOOD BALANCE NO SQUAT AND RISE W/O ASSISTANCE TO 60 DEG KNEE FLEXION NO SINGLE LEG STANCE INTACT TRENDELENBURG NEG IMAGING: XRay Lumbar Multiview (AP, Lateral, Flexion, Extension) with AP pelvis; 5 views taken at [facility] on 08/21/24: -L4-S1 spondylosis with stenosis foraminal noted. -Complete collpase L5-S1 disc space. -Facet arthropathy, severe L4-5 and L5-S1 b/l noted with hyptertrophy and osteophyte formation -Grade 1 retrolisthesis L4-5 on Ext films noted due to the severe collpase at L5-S1, this worsens the foraminal stenosis due to facet gapping and SAP impingement. Pelvis: The visualized sacrum and iliac wings are within normal limits. Mild to moderate bilateral hip joint space narrowing. CT Date: 08/27/24 Location: [facility] Region: lumbar spine Contrast: N IMAGES ARE REVIEWED WITH THE PATIENT IN OFFICE AND DEMONSTRATE THE FOLLOWING: FINDINGS: L2-S1 spondylosis with bony canal stenosis realted to facet arthropathy and hypertrophy -Baastrups disease noted same levels. -Degenerative disc disease noted same levels with overall preserved lordosis at this time and no instability noted -Severe collpase vs transition at L5-S1 -No fracture -No lesions MRI Date: 08/17/24 Location: [facility] Region: lumbar spine Contrast: N IMAGES ARE REVIEWED WITH THE PATIENT IN OFFICE AND DEMONSTRATE THE FOLLOWING: FINDINGS: -Severe central and b/l foraminal stenosis at L2-4. -L2-3 central and foraminal stenosis that is moderate to severe due to facet arthropathy, ligamental hypertrophy and osteophytosis -L3-4 severe central stenosis, severe foraminal stenosis due to similar findings with Baastrups disease, ligamental overgrowth, facet cyst formation CT and bony stenosis related. -L4-5 similar findings with severe central and foraminal stenosis. There is a subtle Grade 1 listhesis of L4-5 that appears to be stable at this time. -No fractures -No lesions IMPRESSION: It was my pleasure to have seen and examined Darrel. I reviewed the patient's clinical syndrome, physical findings, and imaging studies during the appointment today. It is my impression that the patient has a diagnosis of. 1. L2-L4 stenosis with radiculopathy and neurogenic claudication, severe 2.L2-L4 spondylosis with degenerative collpase, severe 3.Right lower extremity radiculopathy 4. Right lower extremity weakness M48.062 - Spinal stenosis, lumbar region with neurogenic claudication (bony) M48.06 - Spinal stenosis, lumbar region M51.16 - Intervertebral disc disorders with radiculopathy, lumbar region M99.33 - Osseous stenosis of neural canal of lumbar region M99.43 - Connective tissue stenosis of neural canal of lumbar region M99.53 - Intervertebral disc stenosis of neural canal of lumbar region M99.63 - Osseous and subluxation stenosis of intervertebral foramina of lumbar region M99.73 - Connective tissue and disc stenosis of intervertebral foramina of lumbar region PLAN: DISCUSSION: -I have discused with the patient his clinical signs and symptoms as well as treatment options, risks, benefits and alternatives as appropriate. At this time he has failed to progress with conservative measures and his neurological changes have progressed to worsening. He has elected to proceed as below. SURGICAL RECOMMENDATION -L2-4 LAMINOFORAMINOTOY FOR DECOMPRESSION (MINIMALLY INVASIVE) Spine Surgery Risk Review Mr. Devlin is presenting for evaluation of lumbar and lower extremity pain. It was my pleasure to have seen and examined Mr. Devlin. In our visit today we have had a chance to go over subjective complaints, physical examination findings and treatments including the natural course history without intervention and various interventional options. 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 There is preserved alignment for the most part with degenerative changes that are moderate to severe. No fractures or lesions noted. On physical exam, Mr. Devlin demonstrates: Patient continues to describe a severe constant throbbing, burning, shooting, and sharp lumbar pain that has been chronic in nature, although progressing over the last year.In addition to his lumbar pain he states it radiates into the posterior bilateral lower extremities with numbness and tingling. Patient has developed weakness and has caught himself multiple times before falling. Patient states his symptoms are exacerbated with prolonged ambulation or sitting, bending, and changing position from sitting to standing. I have explained to the patient that as their condition progresses it will cause further neurological deficits and eventual paralysis. Based on the patients imaging, physical exam, and the rapid progression and disabling nature of their symptoms, at this time I recommend surgery in the form of a: Lumbar decompressive surgery. I discussed the risk and benefits of this procedure at length with Mr. Devlin. The patient agreed to considered pursuing the procedure abovementioned. Prior to surgery, she should follow up with her PCP (Cardio, ID, IM etc) for clearance. Questions were invited and answered, and the patient wishes to proceed as outlined below. Currently, I am recommendin.L2-4 LAMINOFORAMINOTOY FOR DECOMPRESSION (MINIMALLY INVASIVE) 2.Follow up with PCP for surgical clearance 3.Review of surgical risks and benefits as well as an educational packet on the proposed surgical procedure. Risks: All surgical procedures come with inherent risks, including those related to positioning, anesthesia, intraoperative findings, and postoperative complications. It is important to understand that surgery does not come with any guarantee of a successful outcome as complications and adverse events are always possible. The patient was given a handout in office today discussing the surgical procedure and risks associated with the intervention, both of which were discussed with the patient. These risks include but are not limited to the following: * Experiencing same, different or even worse symptoms in back, neck, arms, or legs compared to before surgery. Requiring further surgery or other forms of treatment presently or at some time in the future at same or other levels of the intended spine surgery. On an extreme but fortunately relatively rare basis severe complication such as blindness, stroke, heart attack, temporary and/or permanent nerve injury, paralysis, coma, or may occur, sometimes without known explanation. Surgical complications may include but are not limited to risk of infection, fluid accumulation in the surgical dissection site, including a seroma or hematoma, that requires additional surgery, wound drainage, bleeding, new numbness or weakness, vision changes/loss, spinal fluid leakage, non-healing and/or infected incision, headaches, difficulty or inability to swallow, hoarseness, hemopneumothorax, pneumothorax, impotence, retrograde ejaculation, vaginal dryness; injury to nerves, spinal cord, blood vessels, lymphatics or other vital organs (i.e., bowel injury, injury to the great vessels); heterotopic bone formation; complications related to the hardware such as screws, rods, cages including misplaced hardware, device failure, instrumentation at the wrong spine level, hardware fracture/breakage, or hardware loosening; vertebral failure of the spinal column above or below the newly placed hardware; retained surgical instrumentations or devices and the need for further surgery. * Medical risks of the planned spine surgery include but are not limited to generalized Infections to the whole body or local areas outside of the surgical site (sepsis), heart attack, bleeding, anaphylaxis, meningitis, seizure, epilepsy, hearing loss, burn teresa, laceration of the head or other areas of the body, bruising, hypersensitivity of the skin, bladder over distension; allergic reaction; shoulder injury related to positioning; fat, blood and air clots to other areas of the body like heart, lungs, brain; failure of internal organs such as lungs, kidneys, liver and excessive bleeding. If blood transfusions are necessary, note that transfusions may cause intolerance reactions such as anaphylaxis or other complex reactions. Despite best efforts, the results of spine surgery might not heal in terms of bone, soft tissues such as skin, fascia, ligaments, and joints. Additionally, in order to achieve best possible results, spine surgery may be carried out beyond the initially planned levels and involve decompression, fusion including insertion of hardware at levels other than the original intended area of surgical interest change some portions of the procedure in order to ensure the best possible outcomes. With spine surgery and spinal fusion, there are different off label uses of instrumentation (devices, implants and hardware) as well as biological substances (bone morphogenic proteins, demineralized bone matrix) as well as using extra bone from allograft sources (i.e. cadaver bone) or autograft (iliac crest bone, ribs, or the spine itself). The patient has been given information about these practices and their inherent risks and benefits. [facility] is an educational center that serves as a training facility for neurosurgical and orthopedic [employer] and Nursing students. Physician assistants are medically trained surgical providers who function in the outpatient, inpatient, and operating room setting under the direct supervision of the attending surgeon. [facility] has multiple operating rooms with single and overlapping rooms running daily. They currently function under the required guidelines as produced by the Senate Finance Committee with regards to the overlapping rooms and will continue to comply with changes to this policy as they occur. The requirements include and are complied with as follows: (1) the critical portions of the overlapping rooms will not occur at the same time, (2) the attending physician will be physically present during the critical portions of the procedure and immediately available during the entire case, and (3) a back-up attending is designated should the primary attending not be immediately availa ble. The patient has had a chance to review all the listed information, has been given print outs detailing this information, and has had all his/her questions answered to their satisfaction. It was my pleasure to have seen and examined Mr. Devlin. In our visit today we have had a chance to go over my understanding of our patient's current condition, the natural course history without intervention and various interventional options. Questions were invited and answered, and the patient wishes to proceed as outlined above. I have seen and examined the patient for 25 minutes and we have spent more than 50% of the time in repeat and detailed counseling about the patient's condition, its natural course history with out and as much as can be predicted with surgery and re-review of various surgical treatment options. In conclusion, Mr. Devlin requested we proceed with the above suggested surgery and are willing to accept risks and limitations of the suggested surgery as n ature of the disease process and our best attempts at treatment for the condition. Thank you again for allowing us to be part of your patient's care. Please don't hesitate to contact me if you have any further questions. MEDICAL NECESSITY STATEMENT: Surgical intervention via L2-4 minimally invasive laminoforaminotomy is deemed medically necessary for this 74-year-old male due to documented progressive neurological decline and failed conservative management. Patient demonstrates objective findings of severe multilevel stenosis confirmed by both MRI and CT imaging, showing significant central and foraminal stenosis from L2-4 due to multiple pathological components including facet arthropathy, ligamentous hypertrophy, and Baastrup's disease. Neurological examination confirms weakness in bilateral lower extremities, positive tension signs, and dermatomal sensory deficits corresponding to imaging findings. Conservative measures including physical therapy, multiple medication trials, and epidural injections have failed to provide relief. The patient reports multiple near-fall episodes and significant functional decline, indicating progressive neurological deterioration. Given the correlation between clinical and radiographic findings, alongside failed conservative management and progressive symptoms, surgical decompression is indicated to prevent further neurological deterioration and restore functional capacity. FOLLOW UP: POST-OP PLAN AT NEXT VISIT: RECHECK PATIENT EDUCATION: Medications Reviewed: YES In our visit today Mr. Devlin and I have had a chance to go over my understanding of the patient's current condition, the natural course history without intervention and various interventional options. Questions were invited and answered, and the patient wishes to proceed as outlined above. I will be sure to keep you updated after Mr. Devlin returns here for further follow-up. Thank you again for your referral. Please do not hesitate to contact me if you have any further questions. Signed and authenticated by: Abhinav Lord [facility] [address] [place] [address] . This message is confidential, intended only for the named recipient(s) and may contain information that is privileged or exempt from disclosure under applicable law. If you are not the intended recipient(s), you are notified that the dissemination, distribution or copying of this information is prohibited. If you received this message in error, please notify the sender then delete this message. Past Medical History Past Medical History: GERD/Reflux, Hyperlipidemia, Hypertension, Osteoarthritis (OA) Additional Past Medical History / Comment(s): Left leg varicose veins. lower back pain History of Any Multi-Drug Resistant Organisms: None Reported Past Surgical History: Orthopedic Surgery Additional Past Surgical History / Comment(s): BILATERAL REVERSE SHOULDER, LEFT KNEE SCOPE, LEFT KNEE CARDOSO CYST EXCISION, LEFT FOOT SURGERY. left knee replaced. trigger finger surgery. Past Anesthesia/Blood Transfusion Reactions: No Reported Reaction Smoking Status: Never smoker - Past Family History Father Family Medical History: Cancer Mother Family Medical History: Cancer Sister(s) Family Medical History: Cancer Medications and Allergies Home Medications Medication Instructions Recorded Confirmed Type Atorvastatin [Lipitor] 20 mg PO HS 02/13/18 11/20/24 History Cholecalciferol (Vitamin D3) 4,000 unit PO HS 02/13/18 11/20/24 History [Vitamin D3] Melatonin 5 mg PO HS 05/17/23 11/20/24 History lisinopriL [Prinivil] 10 mg PO HS 05/17/23 11/20/24 History Naproxen Sod/Diphenhydramine 1 tab PO HS 11/20/24 11/20/24 History [Aleve Pm Caplet] Otc Heartburn Medication 1 tab PO DIRECTED PRN 11/20/24 11/20/24 History Otc Sinus Antihistamine 1 tab PO HS 11/20/24 11/20/24 History Unk Fiber Gummie 1 tab PO BID 11/20/24 11/20/24 History Allergies Allergy/AdvReac Type Severity Reaction Status Date / Time adhesive tape Allergy red skin Verified 11/20/24 15:19 and itching HAYFEVER Allergy SINUS SX Uncoded 11/20/24 14:13 Physical Examination Osteopathic Statement: *. No significant issues noted on an osteopathic structural exam other than those noted in the History and Physical/Consult.
[~2024-11-26 07:54] MED LIST changes: -ACETAMINOPHEN TAB 500 MG TAB PO PRN; -GABAPENTIN 300 MG CAP PO PRN; -MELOXICAM 7.5 MG TAB PO PRN; -ONDANSETRON 4 MG/2 ML VIAL IVP PRN
[2024-11-26] MEDS: ACETAMINOPHEN TAB 500 MG TAB PO PRN (08:35)
[2024-11-26] MEDS: DEXAMETHASONE SOD PHOSPHATE 4 MG/ML 1 ML VIAL IV ONE (08:35)
[2024-11-26] MEDS: ONDANSETRON 4 MG/2 ML VIAL IVP PRN (08:35)
[2024-11-26] MEDS: GABAPENTIN 300 MG CAP PO PRN (08:35)
[2024-11-26] MEDS: LACTATED RINGERS 1,000 ML IV ONE (08:53)
[2024-11-26] MEDS: LACTATED RINGERS 1,000 ML IV SCH (08:53)
[2024-11-26] MEDS: THROMBIN (BOVINE) 5,000 UNIT VIAL TOPICAL ONE (10:45)
[2024-11-26] MEDS: LIDOCAINE 2%-EPI 1:100,000 20 ML VIAL SQ ONE (10:45)
[2024-11-26] MEDS: BUPIVACAINE (PF) 0.5% 30 ML VIAL SQ ONE (10:45)
[2024-11-26] MEDS ORDERED: HYDROcodone/APAP 5-325MG 1 EACH TAB PO PRN ×2 (12:38→12:44)
[2024-11-26] MEDS ORDERED: HYDROcodone/APAP 10-325MG 1 EACH TAB PO PRN (12:38)
[2024-11-26] MEDS ORDERED: MAGNESIUM HYDROXIDE 2,400 MG/30 ML CUP PO PRN (12:38)
[2024-11-26] MEDS ORDERED: ONDANSETRON 4 MG/2 ML VIAL IVP PRN ×2 (12:38→13:50)
[2024-11-26] MEDS ORDERED: HYDROmorphone 0.5 MG/0.5 ML SYRINGE IVP PRN (12:38)
[2024-11-26] MEDS ORDERED: HYDROmorphone 1 MG/ML 1 ML SYRINGE IVP PRN (12:38)
[2024-11-26] MEDS ORDERED: SENNOSIDES-DOCUSATE SODIUM 1 EACH TAB PO PRN (12:38)
--- NOTE | 2024-11-26 12:55 | P.OP ---
Date of Procedure: 11/26/24 Preoperative Diagnosis: 1. 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 LE WEAKNESS 3. LE RADICULOPATHY 4. LOW BACK PAIN Postoperative Diagnosis: 1. 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 LE WEAKNESS 3. LE RADICULOPATHY 4. LOW BACK PAIN 5. DURAL EROSION Procedure(s) Performed: 1. L2-3, L3-4 LAMINOFORAMINOTOMY, PARTIAL MEDIAL FACETECTOMY AND DECOMPRESSION 2. DURAL REPAIR WITH PATCH GRAFT L2-3 MIDLINE, SMALL USE OF IO MICROSCOPE Implants: NONE Anesthesia: ANNAA Surgeon: [facility] Worker #1: Jimmy Tripp (was present and assisted with all aspects of the case from positioning to dressing placement) Estimated Blood Loss (ml): 50 IV fluids (ml): 1,200 Urine output (ml): 0 Pathology: none sent Condition: stable Disposition: PACU Indications for Procedure: Mr. Devlin is presenting for evaluation of lumbar and lower extremity pain. It was my pleasure to have seen and examined Mr. Devlin. In our visit today we have had a chance to go over subjective complaints, physical examination findings and treatments including the natural course history without intervention and various interventional options. 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 There is preserved alignment for the most part with degenerative changes that are moderate to severe. No fractures or lesions noted. On physical exam, Mr. Devlin demonstrates: Patient continues to describe a severe constant throbbing, burning, shooting, and sharp lumbar pain that has been chronic in nature, although progressing over the last year.In addition to his lumbar pain he states it radiates into the posterior bilateral lower extremities with numbness and tingling. Patient has developed weakness and has caught himself multiple times before falling. Patient states his symptoms are exacerbated with prolonged ambulation or sitting, bending, and changing position from sitting to standing. I have explained to the patient that as their condition progresses it will cause further neurological deficits and eventual paralysis. Based on the patients imaging, physical exam, and the rapid progression and disabling nature of their symptoms, at this time I recommend surgery in the form of a: Lumbar decompressive surgery. I discussed the risk and benefits of this procedure at length with Mr. Devlin. The patient agreed to considered pursuing the procedure abovementioned. Prior to surgery, she should follow up with her PCP (Cardio, ID, IM etc) for clearance. Questions were invited and answered, and the patient wishes to proceed as outlined below. Currently, I am recommendin.L2-4 LAMINOFORAMINOTOY FOR DECOMPRESSION (MINIMALLY INVASIVE) Description of Procedure: L2-4 RIGHT MINIMALLY INVASIVE LAMINOFORAMINOTOMY The patient was seen and examined in the preoperative area. All preoperative protocols were followed. Informed consent was obtained, risks and benefits of the procedure were discussed at length. Risks including bleeding, infection, damage to the surrounding tissue, and risk of reoperation were discussed with the patient. Risk of anesthesia up to and including was discussed with the patient. These are outlined in the risk review. They were willing to accept these risks and all the risks of surgery. The patient was given a weight-based dose of antibiotics in the form of 2 g Ancef. The patient was seen and evaluated by the anesthesia team who deemed them fit for surgery. The site was marked, the patient was willing to proceed with the procedure. The patient was transferred to the operative suite by the Department of anesthesia. They were then drifted off to sleep by the department anesthesia and GETA was performed. The patient tolerated this well. Once confirmation of lines and ventilation the patient was transferred to a prone Storm table very carefu lly. All bony prominences including wrists, elbows, axilla, chest, hips, and thighs, and feet were padded very well. Special attention was paid to the genitalia, and these were padded accordingly. SCDs were placed on bilateral lower extremities and were connected. Arms were well padded and placed on arm boards up and out in the 90/90 position. Once in position, again we confirmed good ventilation capabilities and that lines were running appropriately. The patient's Lumbar spine was then exposed. 1010s were placed outlining the incision site. Standard alcohol was used to clean the incision site and allowed to dry. C-arm was used to needle localize the pedicles at L2-4 and bio-valarie the patient and confirm level for incision which was marked with a skin marker. Operative briefing was performed with all teams and everyone in agreement to proceed. The patient was then prepped and draped in a normal sterile fashion. Timeout was then performed, and all parties agreed with the procedure to be performed. Biplanar fluoroscopy was used to localize the L2-4 levels and a right paramedian skin incision was made over this area. Initial dilator was sent down and fluoroscopy confirmed levels in AP and lateral views. I then sequentially dilated up to 26 mm and placed a 100 mm x 26 mm retractor tube which was secured to the table with a table arm. Microscope was then brought in for visualization. Limited myomectomy was performed over the facet joints, pars, and lamina of L2, L3, L4. At the L2-3 level, a large facet cyst was encountered on the right side. This was meticulously dissected and removed from the dura without any injury. There was significant ligamental tissue which was extremtly thickened causing severe stenosis and displacement along with scarring. Significant scar tissue was noted in this region, which was then shown at L2-3 to have a dural erosion at L2-3. This was identified and was plugged with a gel foam for the time being. There was also exuberant ligamentum flavum hypertrophy throughout the operative field. These tissues were carefully removed to achieve complete decompression. Kurtis-laminectomy, partial medial facetectomy, and foraminotomy were performed at L2-3, and L3-4 using high-speed pj and Kerrison rongeur. The hypertrophied ligamentum flavum was removed with Kerrison and curette. Dura and roots were protected throughout the procedure. The neural foramina were carefully decompressed to ensure adequate space for the exiting nerve roots. Meticulous hemostasis was achieved using bipolar cautery. The area was irrigated thoroughly. The surgical bed was inspected, and all roots were found to have ample room and were adequately decompressed along with the dura. The dura was then sealed wtih a patch graft of fat that was harvested from the subq tissue and Tisseal. This provided good seal. Valsalva to 40 mm Hg showed no further CSF leak. The remainder was inspected and was stable. The tubular retractor was then removed under direct visualization. The wound was copiously irrigated with normal saline solution. The deep fascia was closed with 0 Vicryl. Deep subcutaneous tissue was closed with 0 Vicryl and superficial with 2-0 Vicryl. Skin was closed with tai. The wound edges approximated well. The wound was then cleaned and covered with a sterile dressing. The patient was then transferred off the table back to their hospital bed atraumatically. They were extubated by the department of anesthesia. They were then transferred to PACU in stable condition having tolerated the procedure with no complications.
[2024-11-26] MEDS: HYDROmorphone 0.5 MG/0.5 ML SYRINGE IVP PRN (13:00)
--- NOTE | 2024-11-26 13:11 | XR ---
Fluoroscopy INDICATION: Pain FINDINGS: Fluoroscopy time: 23 seconds. Total dose area product (DAP) in uGy*m?, mGy*cm? (or similar): 11.5 x 3 Images obtained: 5. Images demonstrate placement of a needle at the lumbar spine IMPRESSION: 1. Documentation of fluoroscopy. [facility], , 11/26/2024 1:09 PM
[2024-11-26] MEDS: IV FLUID CONTINUATION 1,000 ML IV ONE (13:23)
[2024-11-26] MEDS: CYCLOBENZAPRINE 5 MG TAB PO PRN (14:34)
[2024-11-26] MEDS: ONDANSETRON 4 MG/2 ML VIAL IVP ONE (15:13)
--- NOTE | 2024-11-26 15:34 | FL ---
Fluoroscopy INDICATION: Pain FINDINGS: Fluoroscopy time: 23 seconds. Total dose area product (DAP) in uGy*m?, mGy*cm? (or similar): 11.553 Images obtained: 0. IMPRESSION: 1. Documentation of fluoroscopy. [facility], , 11/26/2024 3:31 PM
[2024-11-26 15:48] VITALS: RESP 18
[2024-11-26] MEDS: NAPROXEN 250 MG TAB PO SCH (16:34)
[2024-11-26] MEDS: KETOROLAC 15 MG/ML 1 ML VIAL IM STA (16:34)
[2024-11-26] MEDS: HYDROcodone/APAP 10-325MG 1 EACH TAB PO SCH (17:17)
[2024-11-26] MEDS: BENZOCAINE/MENTHOL LOZENG 1 EACH LOZENGE MUCOUS MEM PRN (17:17)
[2024-11-26] MEDS: ACETAMINOPHEN TAB 325 MG TAB PO SCH (19:00)
[2024-11-26] MEDS: FLUTICASONE NASAL 50MCG/SPRAY 16GM BTL EA NOSTRIL PRN (23:58)
[2024-11-27] MEDS: SENNOSIDES-DOCUSATE SODIUM 1 EACH TAB PO SCH (07:53)
[2024-11-27 08:23] VITALS: BP 154/81; PULSE 65; TEMP 97.9
--- NOTE | 2024-11-27 08:52 | P.PN ---
Subjective Progress Note Date: 11/27/24 Principal diagnosis: 1. L2-L4 stenosis with radiculopathy and neurogenic claudication, severe 2.L2-L4 spondylosis with degenerative collpase, severe 3.Right lower extremity radiculopathy 4. Right lower extremity weakness Patient seen and examined this morning. Patient has been resting comfortably in bed. Patient does report that his pain is managed on current regimen. He does have complaint of feeling a little congested, medical physician did order some nasal spray that seems to have been helping. Patient states that he was informed that he needed to be bed rest, patient reeducated this morning that he may be up and about as tolerated with assistance. Patient denies any headaches, blurred vision, or nausea. Surgical incision to the right lateral lumbar spine, dressing is clean dry and intact with no shadowing noted. Informed patient that physical therapy will be in to work with him today. If patient continues to progress well and pain is managed he may be discharged later today. Objective - Vital Signs Vital signs: Vital Signs Temp 98.1 F 11/27/24 01:10 Pulse 76 11/27/24 01:10 Resp 18 11/27/24 01:10 BP 109/55 11/27/24 01:10 Pulse Ox 95 11/27/24 01:10 FiO2 Intake & Output 11/26/24 11/26/24 11/27/24 06:59 18:59 06:59 Intake Total 1750 Output Total 200 250 Balance 1550 -250 Weight 104.326 kg Intake: IV 1750 Output: Urine 150 250 Estimated Blood Loss 50 Other: # Voids 1 - Exam Physical Examination General: The patient is awake and alert, in no acute distress Skin: Skin is warm and dry with no obvious rashes or lesions. Eye: Pupils are equal, round and reactive to light, extra-ocular movements are intact; there is normal conjunctiva bilaterally. Neck: The neck is supple, there is no tenderness and ROM intact. Cardiovascular: There is a regular rate and rhythm. No murmur, rub or gallop is appreciated. Respiratory: Respirations are non-labored, breath sounds are equal. Gastrointestinal: Soft, non-distended, non-tender abdomen. Back: There is no tenderness to palpation in the midline, paralumbar, parathoracic or buttocks region. There is no obvious deformity . Musculoskeletal: ROM limited secondary to pain and stiffness from surgical procedure. Right: Shoulder abduction 5/5, elbow flexors 5/5, wrist dorsiflexors 5/5. finger abductor 5/5, tube washer 5/5, hip flexor 5/5, knee flexor 5/5, ankle dorsiflexor 5/5, ankle plantarflexion 5/5 and extensor hallucis 5/5. Left: Shoulder abduction 5/5, elbow flexors 5/5, wrist dorsiflexors 5/5. finger abductor 5/5, tube washer 5/5, hip flexor 5/5, knee flexor 5/5, ankle dorsiflexor 5/5, ankle plantarflexion 5/5 and extensor hallucis 5/5. Neurological: CN 2-12 intact. There are no obvious motor or sensory deficits. Movement and coordination equal and intact. Sensory exam to light touch intact C5-T1 and intact from L2-S1. Reflexes 2/4 in bilateral upper and lower extremities. Negative Hoffmans, babinski, and clonus signs. Psychiatric: Cooperative, appropriate mood & affect, normal judgment. Assessment and Plan Assessment: Postop day 1: L2-L4 minimally invasive right laminoforaminotomy with dural repair Plan: -Appreciate siebel consultant and team management. -Activity: Ambulate QID, OOB all meals, up and about, limit lifting bending twisting to less than 5 lbs. Use walker or cane if needed for stability. -Daily PT/OT, increase ambulation strength and balance. -Pain control: Adequate at this time -Meds: reviewed -GI ppx: senna, Miralax -DVT PPX: Aspirin 81mg daily -Hygiene: Maintain incision clean and dry. May change dressing as needed, please document in notes if performed. Meticulous cleaning after BMs away from the incision site -Encourage IS 10x/hr -Dispo: Anticipate discharge home later today *I reviewed and discussed this case with my attending Dr. Cho, whom has reviewed this chart and films and is in agreement with assessment and plan of care as outlined above. I have personally seen and examined the patient, performed the documentation and the assessment and plan as written. Number of minutes spent on the visit: 20m.
[2024-11-27 08:54] LABS: BUN/Creat Ratio 21.77 Ratio (12.00-20.00); Blood Urea Nitrogen 28.3 mg/dL (9.0-27.0); Calcium 8.7 mg/dL (8.7-10.3); Carbon Dioxide 23.3 mmol/L (21.6-31.8); Chloride 107 mmol/L (96-109); Glucose 125 mg/dL (70-110); Potassium 4.5 mmol/L (3.5-5.5); Sodium 141 mmol/L (135-145)
[2024-11-27 09:19] LABS: Basophils # (A) 0.03 X 10*3/uL (0.00-0.10); Basophils % (A) 0.2 %; Eosinophils # (A) 0.01 X 10*3/uL (0.04-0.35); Eosinophils % (A) 0.1 %; HCT 41.9 % (39.6-50.0); HGB 14.1 g/dL (13.0-17.0); Lymphocytes # (A) 1.04 X 10*3/uL (0.90-5.00); Lymphocytes % (A) 7.6 %; MCH 31.2 pg (27.0-32.0); MCHC 33.7 g/dL (32.0-37.0); MCV 92.7 FL (80.0-97.0); Mean Platelet Volume 11.7 FL (9.5-12.2); Monocytes % (A) 10.2 %; NRBC Per 100 WBC 0 X 10*3/uL (0.00-0.01); Neutrophils # (A) 11.21 X 10*3/uL (1.80-7.70); Neutrophils % (A) 81.5 %; Platelet Count 148 X 10*3/uL (140-440); RBC 4.52 X 10*6/uL (4.40-5.60); RDW 11.9 % (11.5-14.5); WBC 13.74 X 10*3/uL (4.50-10.00)
--- NOTE | 2024-11-27 12:18 | P.DS ---
Providers Date of admission: 11/26/24 Expected date of discharge: 11/27/24 Attending physician: Frandy Cho DO Consults: 11/26/24 12:38 Consult Physician Routine Consulting Provider: Camila Arriaga Reason/Comments: medical management s/p L2-L4 laminoforaminotomy and decompression Do you want consulting provider notified?: Yes Primary care physician: [facility][1] Course: Hospital Course: The patient was evaluated preoperatively and found to have the diagnosis of Lumbar stenosis. They underwent appropriate preoperative care and were willing to undergo the intended procedure. They underwent a successful L2-L4 minimally invasive right laminoforaminotomy with dural repair, were recovered appropriately and sent to the floor. While on the floor they worked with physical therapy, occupational therapy and nursing to enhance their recovery experience. Their pain was well controlled through their stay and they were started on appropriate medications, DVT ppx modalities, activity and dietary needs. Daily labs were monitored closely, and transfusions were only used when necessary. Medicine as well as other consulting services have made their input a nd have helped with our team approach and multidisciplinary care. PT milestones have been met and passed and they have made the recommendation of home for this patient and treating providers agree with this care path. The patient will be discharged home with appropriate medications, instructions and follow-up information and in stable condition. Patient Condition at Discharge: Good Plan - Discharge Summary Discharge Rx Participant: Yes New Discharge Prescriptions: New cefaDROXiL [Duricef] 500 mg PO Q12HR #10 cap HYDROcodone/APAP 10-325MG [[place] 10-325] 1 tab PO Q4HR PRN #40 tab PRN Reason: Pain Aspirin [Adult Low Dose Aspirin EC] 81 mg PO DAILY #14 tab Cyclobenzaprine [Flexeril] 5 mg PO TID PRN #40 tablet PRN Reason: Muscle Spasm Sennosides/Docusate Sodium [Senna Plus 8.6-50 mg Tablet] 2 each PO DAILY PRN #40 tab PRN Reason: Constipation No Action Cholecalciferol (Vitamin D3) [Vitamin D3] 4,000 unit PO HS Atorvastatin [Lipitor] 20 mg PO HS Melatonin 5 mg PO HS lisinopriL [Prinivil] 10 mg PO HS Naproxen Sod/Diphenhydramine [Aleve Pm Caplet] 1 tab PO HS Unk Fiber Gummie 1 tab PO BID Otc Sinus Antihistamine 1 tab PO HS Otc Heartburn Medication 1 tab PO DIRECTED PRN PRN Reason: Heartburn Discharge Medication List Atorvastatin [Lipitor] 20 mg PO HS 02/13/18 [History] Cholecalciferol (Vitamin D3) [Vitamin D3] 4,000 unit PO HS 02/13/18 [History] Melatonin 5 mg PO HS 05/17/23 [History] lisinopriL [Prinivil] 10 mg PO HS 05/17/23 [History] Naproxen Sod/Diphenhydramine [Aleve Pm Caplet] 1 tab PO HS 11/20/24 [History] Otc Heartburn Medication 1 tab PO DIRECTED PRN 11/20/24 [History] Otc Sinus Antihistamine 1 tab PO HS 11/20/24 [History] Unk Fiber Gummie 1 tab PO BID 11/20/24 [History] Aspirin [Adult Low Dose Aspirin EC] 81 mg PO DAILY #14 tab 11/27/24 [Rx] Cyclobenzaprine [Flexeril] 5 mg PO TID PRN #40 tablet 11/27/24 [Rx] HYDROcodone/APAP 10-325MG [[place] 10-325] 1 tab PO Q4HR PRN #40 tab 11/27/24 [Rx] Sennosides/Docusate Sodium [Senna Plus 8.6-50 mg Tablet] 2 each PO DAILY PRN #40 tab 11/27/24 [Rx] cefaDROXiL [Duricef] 500 mg PO Q12HR #10 cap 11/27/24 [Rx] Follow up Appointment(s)/Referral(s): Frandy Cho DO [Doctor of Osteopathic Medicine] - 2 Weeks Activity/Diet/Wound Care/Special Instructions: Spine Discharge and Recovery Instructions Date of Surgery: 11/26/2024 Diagnosis: 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 Please discuss prescription refills at your follow up appointment. Do not call the hospital for medication refills. Dressing: Leave your dressing in place for a total of 5 days post operatively. Then you may remove your dressing and leave open to air. Keep the area clean and if not able to keep area clean, then cover with sterile gauze and tape. Showering: You may shower 3 days after your procedure allowing soap and water to run over incision. Do not scrub. Do not soak. Blot dry. Follow up: Please confirm a follow up appointment with your surgeon 3 weeks post operatively. Please make an appointment to follow up with your PCP in 1-2 weeks after surgery for evaluation '3 phase, 3-week plan' POST OP WEEKS 1-3 1. Lifting/carrying/pushing/pulling limited to less than 5 pounds. 2. Do not sit for longer than 15 minutes at one time. Get up and walk around. Prolonged sitting is NOT advised. If you lay down, see if you can tolerate laying down on you front (belly side) 3. Walk for periods of 15 minutes = 1 mile but no longer; do it multiple times times each day. 4. Ice your low back after activity. POST OP WEEKS 3-6 1. Lifting limited to less than 20 pounds. 2. Do not sit for longer than 30 minutes at a time. Frequently change positions. Use a sit-to stand workstation or take frequent breaks from sitting if you have returned to work. 3. Walk for 30 minutes each day. If possible, do these three or more times a day POST OP WEEKS 6+ At your 6-week appointment we will give you a physical therapy referral to focus on a core stabilization and strengthening program. You should also work on leg & buttock strengthening, hamstring & quadriceps stretching, and continue a low impact aerobic activity program such as swimming, walking, or riding a stationary bicycle. During the initial 6 weeks after your surgery, you are at the highest risk of re-injuring your spine. You should generally avoid BLT's (bending, lifting and twisting combination motions) and follow the above guidelines to reduce the chance of reinjury. You can anticipate post op appointments in our office at approximately 3 weeks and 6 weeks after your surgery. INCISION CARE: If your incision is not draining you do NOT need to cover it with a dressing. Keep your incision clean, dry and intact. In most cases, we apply skin glue, tai or sutures to the incision at the time of surgery. This will be like a crust or have the appearance of a scab and will fall off in time on its own. The stitches or tai need to be removed at 3 weeks post op appointment. You may begin to shower 3 days after surgery (this allows the glue to wyatt well). However, please avoid scrubbing the incision site or peeling off any of the skin glue. This will ensure optimal healing of your incision. Also, during this time avoid soaking the incision area in water - this includes swimming pools, hot tubs or baths. No ointments, lotions or oils on the incision until your surgeon allows. Leave tai, sutures or glue in place. Neurological dysfunction that comes on suddenly can also be a sign of a stroke. Below some common symptoms of a stroke are listed: B - balance difficulty such as sudden onset walking or leaning to one side - NEW E - eye problem such as sudden double vision or trouble seeing on one side - NEW F - Facial weakness or numbness on one side - NEW A - Arm or leg weakness or numbness on one side - NEW S - Slurred speech or difficulty with word finding - NEW T - Time is BRAIN! Call 911 as soon as you recognize these symptoms Diet: Consume a regular diet rich in vegetables and lean protein such as chicken or fish. You should consume in a ratio of approximately 20% fats|40% carbohydra aime|40%protein. Vegetables, sweet potatoes, brown rice or quinoa are examples of good carbohydrates. Chips, white bread, cookies and sweets/sugar are examples of bad carbohydrates. Limit your bad carbs, go wild with good carbs. "Life's Simple 7" Guidelines as per [place] [employer] These will help you reclaim your life after surgery and signal helper in your recovery, keeping in mind your restrictions. (1) Get Active. Physical activity can help people lose weight, control high blood pressure and cholesterol, feel emotionally better, and sleep better. (2) Control Cholesterol. Avoid a diet high in saturated fat, trans fat, & cholesterol. Limit whole milk & cream, ice cream, butter, egg yolks, processed meats (like sausage and hot dogs), and fatty meats. Choose healthy foods that are low in saturated fat, trans fat and cholesterol which include: Fruits and vegetables, fiber rich grain products (like whole grain pasta and brown rice), lean meat such as chicken, fish, nuts, seeds, and legumes. (3) Eat Better. Eat small portions. Shop at the grocery with a list and do not stray from it. Tips for a healthy diet include: Limit sodium intake to less than 1500mg daily, avoid prepackaged, processed, and fast foods, choose a diet rich in fruits, vegetables, and whole grain, high fiber foods, and limit saturated & cholesterol in your diet. (4) Manage Blood Pressure. If you have high blood pressure, you should have a cuff at home so that you can check your blood pressure regularly. Be sure you have a good cuff. An arm one is generally better than a wrist one. Bring the cuff to a doctor's appointment to validate that the measurements that your cuff are taking are accurate. Take your blood pressure twice daily when you are sitting down and relaxing. Record the numbers in a log and bring this log with you to your doctors' appointments. (5) Lose Weight if your BMI is above 25. A healthy BMI is between 19-25. To calculate Your BMI, you may use a Standard BMI Calculator on the NIH BMI website: <www.nhlbi.nih.gov/guidelines/obesity/BMI/bmicalc.htm>. Weigh oneself daily. If you are overweight, set a goal to lose weight. A pound a week loss if needed is a good target. (6) Reduce Blood Sugar. Limit foods and liquids with "added sugars." (Added sugars include sucrose, fructose, glucose, maltose, dextrose, high fructose corn syrup, corn syrup, concentrated fruit juice and honey). (7) Stop Smoking. If you smoke, quitting smoking is one of the best things that you can do for your health. Smoking increases your risk of heart attack, stroke, and peripheral vascular disease, which is a build-up of plaque in your arteries. Please discard all the cigarettes and lighters in your house. Have a plan for what you will do when you have the urge to smoke. Direct and second- hand smoke shortens your life as well as the lives of your family, friends and others around you. For your health and the health of those around you, please consider quitting! Proper Bending Body Mechanics: Maintain a wide stance with one foot slightly in front of the other. Keep your back straight. Bend utilizing the strength in your hips and knees. Do not bend at the waist. Maintain the lifted object at your waist-level close to your body. Avoid lifting weight that causes immediately pain or pain anywhere in the body afterwards. Smoking/Nicotine If there was ever one thing that you could do to increase your overall health, decrease your risk of cardiovascular problems by about 39% the second you make the choice, it is to STOP SMOKING. Your body's most instant gratification is the second you stop smoking. We have all heard the studies, read the articles but it is true, smoking is extremely bad for your overall health, and moreover it is detrimental to your bone health. Nicotine, IN ANY FORM, kills bone cells, prevents your body from healing fractures, and significantly prolongs healing after surgery. In spine surgery specifically, it increases your risk of not healing your bones to create a fusion and increases your risk of having a revision surgery due to this up to 60%. I know it is hard. I know it feels impossible. But there are ways. Take control of your life. We are here to help you through it. And when you are ready, ask us and we can direct you to help if you desire. Use the START Plan to Quit Smoking (please visit the Helpguide.org website listed below for more information): S = Set a quit date. Choose a date within the next 2 weeks, so you have enough time to prepare without losing your motivation to quit. If you mainly smoke at work, quit on the weekend, so you have a few days to adjust to the change. T = Tell family, friends, and co-workers that you plan to quit. Let your friends and family in on your plan to quit smoking and tell them you need their support and encouragement to stop. Look for a quit tamanna who wants to stop smoking as well. You can help each other get through the rough times. A = Anticipate and plan for the challenges you'll face while quitting. Most people who begin smoking again do so within the first 3 months. You can help yourself make it through by preparing ahead for common challenges, such as nicotine withdrawal and cigarette cravings. R = Remove cigarettes and other tobacco products from your home, car, and work. Throw away all your cigarettes (no emergency pack!), lighters, ashtrays, and matches. Wash your clothes and freshen up anything that smells like smoke. Shampoo your car, clean your drapes and carpet, and steam your furniture. T = Talk to your doctor about getting help to quit. Your doctor can prescribe medication to help with withdrawal and suggest other alternatives. If you can't see a doctor, you can get many products over the counter at your local pharmacy or grocery store, including the nicotine patch, nicotine lozenges, and nicotine gum. Resources for Quitting Smoking: <https://www.[place].gov/documents/[facility]/Quit_Tobacco_Resources_for_patients_313 480_7.pdf> Supplementation: Take recommended dosages of Vitamin D and Calcium to help fortify your bones and help them to heal. See your health maintenance packet for dosages and recommended levels. DVT/VTE prophylaxis: You will be given compression stockings from the hospital. Wear these daily for the first two weeks after surgery. You may take them off at night. You may be prescribed a medication to help thin your blood. Take this as directed. If you are not prescribed this medication, early and frequent ambulation has been shown to be the best prophylaxis to deep vein thrombosis and sequelae related to this event.
[2024-11-27] MEDS ORDERED: ATORVASTATIN 20 MG TAB PO SCH (21:00)
[2024-11-27] MEDS ORDERED: CHOLECALCIFEROL 25 MCG (1000 IU) TABLET PO SCH (21:00)
[2024-11-27] MEDS ORDERED: MELATONIN 5 MG TABLET PO SCH (21:00)
[2024-11-27] MEDS ORDERED: lisinopriL 10 MG TAB PO SCH (21:00)
== END 2024-11-27 13:13 | disposition home or self-care (01) ==
LOC: OR 07:54 → 4SSUR 12:28 → OR 11-27 13:13
PROVIDERS: ATTEND Orthopaedic Surgery
DX: M48.062 Spinal stenosis, lumbar region with neurogenic claudication (principal); M99.53 Intervertebral disc stenosis of neural canal of lumbar region; M51.16 Intervertebral disc disorders with radiculopathy, lumbar region; M47.26 Other spondylosis with radiculopathy, lumbar region; M99.73 Connective tissue and disc stenosis of intervertebral foramina of lumbar region; M99.43 Connective tissue stenosis of neural canal of lumbar region; M99.63 Osseous and subluxation stenosis of intervertebral foramina of lumbar region; M99.33 Osseous stenosis of neural canal of lumbar region; M48.26 Kissing spine, lumbar region; M71.38 Other bursal cyst, other site; I10 Essential (primary) hypertension; E78.5 Hyperlipidemia, unspecified; K21.9 Gastro-esophageal reflux disease without esophagitis; Z79.1 Long term (current) use of non-steroidal anti-inflammatories (NSAID); Z79.899 Other long term (current) drug therapy; Z91.048 Other nonmedicinal substance allergy status
CPT/HCPCS: 63047; 63048; 63267; 72100; J1100; J0690; J2405; J1171; J0665; 80048; 85025; 94760

== ENCOUNTER → 2024-12-10 | Outpatient (CLI) | payer MEDICARE ==
--- NOTE | 2024-12-10 14:46 | US ---
EXAMINATION TYPE: US venous doppler duplex LE RT DATE OF EXAM: 12/10/2024 2:39 PM COMPARISON: NONE CLINICAL INDICATION: Male, 74 years old with history of R2241 LOCALIZED SWELLING; leg swelling. Pt chamberlain d back surgery 11/26/24. No hx of DVT, takes a baby aspirin, Pain TECHNIQUE: The lower extremity deep venous system is examined utilizing real time linear array sonog rudy with graded compression, color doppler sonography, and spectral doppler. SIDE PERFORMED: Right FINDINGS: VESSELS IMAGED: Common Femoral Vein Deep Femoral Vein Greater Saphenous Vein * Femoral Vein Popliteal Vein Small Saphenous Vein * Proximal Calf Veins (* superficial vessels) Right Leg: No evidence for DVT, Color Doppler imaging shows patency of the vessels. Spectral wavefor ms are within normal limits. IMPRESSION: 1. Right lower extremity ultrasound negative for deep venous thrombosis [facility], , 12/10/2024 2:44 PM
--- NOTE | 2024-12-10 15:00 | US ---
EXAMINATION TYPE: US bladder DATE OF EXAM: 12/10/2024 COMPARISON: NONE CLINICAL INDICATION: Male, 74 years old with history of R33.9 RETENTION OF URINE, UNSPECIFIED; urinar y retention TECHNIQUE: Grayscale and color doppler imaging of the bilateral kidneys and urinary bladder. FINDINGS: EXAM MEASUREMENTS: Post Void Residual Volume: 332.58 mL EMBEDDED PROCESSOR NOTES: bladder appears sonolucent Color Doppler performed to assess ureteral jets. Bilateral Jets seen: yes Normal Post Void Residual (less than 50ml): No. PV is 332.58ml. Normal less than 50 mL IMPRESSION: Urinary retention with significant post void residual 333 mL [facility], , 12/10/2024 2:58 PM
[2024-12-10 16:16] LABS: Appearance,Urine Clear (Clear); Bilirubin,Urine Negative (Negative); Blood,Urine Negative (Negative); Color,Urine Colorless; Glucose,Urine (UA) Negative (Negative); Ketones,Urine Negative (Negative); Leukocyte Esterase,Urine Negative (Negative); Nitrite,Urine Negative (Negative); Protein,Urine Negative (Negative); Specific Gravity,Urine 1.013 (1.001-1.035); Urobilinogen,Urine <2.0 mg/dL (<2.0)
[2024-12-10 19:21] LABS: Blood Urea Nitrogen 20.2 mg/dL (9.0-27.0); Chloride 103 mmol/L (96-109); Glucose 113 mg/dL (70-110); Potassium 4.6 mmol/L (3.5-5.5); Sodium 138 mmol/L (135-145)
[2024-12-10 19:22] LABS: ALT 33 U/L (10-49); AST 37 U/L (14-35); Albumin/Globulin Ratio 1.43 Ratio (1.60-3.17); Alkaline Phosphatase 70 U/L (41-126); Calcium 9.1 mg/dL (8.7-10.3); Carbon Dioxide 25.1 mmol/L (21.6-31.8); Globulin 2.8 g/dL (1.6-3.3); Total Bilirubin 0.4 mg/dL (0.3-1.2); Total Protein 6.8 g/dL (6.2-8.2)
[2024-12-10 19:43] LABS: Basophils # (A) 0.06 X 10*3/uL (0.00-0.10); Eosinophils # (A) 0.17 X 10*3/uL (0.04-0.35); Eosinophils % (A) 2.8 %; HCT 44.8 % (39.6-50.0); HGB 14.6 g/dL (13.0-17.0); Lymphocytes # (A) 1.26 X 10*3/uL (0.90-5.00); Lymphocytes % (A) 20.5 %; MCH 31.2 pg (27.0-32.0); MCHC 32.6 g/dL (32.0-37.0); MCV 95.7 FL (80.0-97.0); Mean Platelet Volume 10.9 FL (9.5-12.2); Monocytes # (A) 0.65 X 10*3/uL (0.20-1.00); Monocytes % (A) 10.6 %; NRBC Per 100 WBC 0 X 10*3/uL (0.00-0.01); Neutrophils # (A) 3.98 X 10*3/uL (1.80-7.70); Neutrophils % (A) 64.5 %; Platelet Count 273 X 10*3/uL (140-440); RBC 4.68 X 10*6/uL (4.40-5.60); RDW 11.9 % (11.5-14.5); WBC 6.16 X 10*3/uL (4.50-10.00)
== END | disposition home or self-care (01) ==
LOC: RADUSWWP 13:53
PROVIDERS: ATTEND Family Medicine
DX: R22.41 Localized swelling, mass and lump, right lower limb (principal); R33.9 Retention of urine, unspecified
CPT/HCPCS: 76857; 80053; 81003; 85025

== ENCOUNTER → 2024-12-25 | Outpatient (CLI) | payer MEDICARE ==
--- NOTE | 2024-12-25 16:36 | US ---
EXAMINATION TYPE: US bladder DATE OF EXAM: 12/25/2024 COMPARISON: 12/10/2024 CLINICAL INDICATION: Male, 74 years old with history of N13.8 OTHER OBSTRUCTIVE AND REFLUX UROPATHY; Pt scanned 12/10/24, now on medication for urinary retention TECHNIQUE: Grayscale and color doppler imaging of the bilateral kidneys and urinary bladder. FINDINGS: EXAM MEASUREMENTS: Bladder starting volume: 317. mL Post Void Residual Volume: 183.8 mL Color Doppler performed to assess ureteral jets. Bilateral Jets seen: Yes Normal Post Void Residual (less than 50ml): No IMPRESSION: Some improvement in the abnormal post void residual bladder volume now 184 mL (versus 333 mL previous ly). [facility], , 12/25/2024 4:34 PM
== END | disposition home or self-care (01) ==
LOC: RADUSWWP 13:48
PROVIDERS: ATTEND Family Medicine
DX: N13.8 Other obstructive and reflux uropathy (principal); R33.9 Retention of urine, unspecified
CPT/HCPCS: 76857